=== PATIENT | female | born 1945 | race American Indian/Alaskan Native ===

== ENCOUNTER 2018-03-03 11:03 | Inpatient (IN) | payer MEDICARE ==
[2018-03-03] MEDS ORDERED: TYLENOL PO PRN (12:57)
[2018-03-03] MEDS ORDERED: VANCOMYCIN 1,250 MG in NACL 0.9% 500 ML 500 ML IV ONE (12:57)
[2018-03-03] MEDS ORDERED: NACL 0.9% 1000 ML IV ONE (12:57)
[2018-03-03] MEDS ORDERED: ZOSYN/NS 4.5GM/100ML 4.5 GM/100 ML VIAL IV SCH (13:00)
--- NOTE | 2018-03-03 13:00 | Emergency Department Report ---
ED General Adult HPI - General Chief complaint: Altered Mental Status Stated complaint: LOW BLOOD SUGAR Time Seen by Provider: 03/03/18 12:47 Source: family, EMS (ems notes not available at time of chart dictation), RN notes reviewed Mode of arrival: Stretcher Limitations: Altered Mental Status - History of Present Illness Initial comments: History obtained from patient's daughter. This is a 72-year-old female who is unknown to this provider. Patient has a past medical history of dementia, tube feeding, end-stage renal disease on dialysis, undifferentiated encephalopathy. The patient is sent to the ER for evaluation of generalized weakness. The patient is nonverbal and cannot describe exacerbating or relieving factors. Patient was found to be febrile,, and hypotensive in the emergency room. Code sepsis called overhead. Laboratory studies indicated a leukocytosis. Patient was found to have an infected sacral decubitus ulcer. She was initially hypotensive with a blood pressure in the 80s, and was managed according to the sepsis pathway, with appropriate broad spectrum antibiotics, and IV fluids. Initial blood pressure in the 80s, now currently 101 /40 Vancomycin and Zosyn were ordered. The case was discussed with the Hospital physician, Dr. Galeas, who accepted the patient to his service, nephrology, Dr. Xavier, who will follow in consultation and arrange dialysis, Gen. surgery, Dr. Pimentel, who will consult on the patient' s infected sacral wound. Extensive discussion had with daughter regarding poor prognosis, the daughter indicates the patient is currently a full code, although she is considering palliative care at this time. -: unknown Radiation: other (patient is nonverbal and cannot describe exacerbating or relieving factors) Severity scale (0 -10): 0 Quality: other (patient is nonverbal and cannot describe exacerbating or relieving factors) Consistency: other (patient is nonverbal and cannot describe exacerbating or relieving factors) Improves with: other (patient is nonverbal and cannot describe exacerbating or relieving factors) Worsens with: other (patient is nonverbal and cannot describe exacerbating or relieving factors) Associated Symptoms: malaise, weakness - Related Data Home Medications Medication Instructions Recorded Confirmed Last Taken Benztropine 1 mg PO HS 03/04/18 03/04/18 Unknown Calcium Acetate 667 mg PO TID 03/04/18 03/04/18 Unknown Carvedilol 6.25 mg PO BID 03/04/18 03/04/18 Unknown Clonidine HCl 0.1 mg PO BID 03/04/18 03/04/18 Unknown Docusate Sodium 100 mg PO DAILY 03/04/18 03/04/18 Unknown Esomeprazole Magnesium 20 mg PO DAILY 03/04/18 03/04/18 Unknown Haldol 2.5 mg PO DAILY 03/04/18 03/04/18 Unknown Haldol 5 mg PO HS 03/04/18 03/04/18 Unknown Levothyroxine 100 mcg PO DAILY 03/04/18 03/04/18 Unknown Mirtazapine [Remeron] 30 mg PO HS 03/04/18 03/04/18 Unknown Ranitidine HCl 150 mg PO HS 03/04/18 03/04/18 Unknown Simvastatin 20 mg PO HS 03/04/18 03/04/18 Unknown Spironolactone [Aldactone] 25 mg PO DAILY 03/04/18 03/04/18 Unknown amLODIPine 5 mg PO DAILY 03/04/18 03/04/18 Unknown Allergies Allergy/AdvReac Type Severity Reaction Status Date / Time No Known Allergies Allergy Verified 03/03/18 13:03 ED Review of Systems ROS: Stated complaint: LOW BLOOD SUGAR Other details as noted in HPI Comment: Unobtainable due to pts medical conditions ED Past Medical Hx - Past Medical History Previous Medical History?: Yes Hx Hypertension: Yes Hx Congestive Heart Failure: Yes (Unspecified diastolic heart failure) Hx Diabetes: Yes Hx GERD: Yes Hx Renal Disease: Yes Hx Psychiatric Treatment: Yes (Major Depression and schizophrenia) Additional medical history: encephalopathy, zoster without complications, ESRD, Anemia, hypothyroidism,dysphagia, Autonomic neuropathy muscle wasting, SOB - Surgical History Past Surgical History?: Yes Additional Surgical History: gastostomy, - Social History Smoking Status: Never Smoker Substance Use Type: Alcohol - Medications Home Medications: Home Medications Medication Instructions Recorded Confirmed Last Taken Type Benztropine 1 mg PO HS 03/04/18 03/04/18 Unknown History Calcium Acetate 667 mg PO TID 03/04/18 03/04/18 Unknown History Carvedilol 6.25 mg PO BID 03/04/18 03/04/18 Unknown History Clonidine HCl 0.1 mg PO BID 03/04/18 03/04/18 Unknown History Docusate Sodium 100 mg PO DAILY 03/04/18 03/04/18 Unknown History Esomeprazole Magnesium 20 mg PO DAILY 03/04/18 03/04/18 Unknown History Haldol 2.5 mg PO DAILY 03/04/18 03/04/18 Unknown History Haldol 5 mg PO HS 03/04/18 03/04/18 Unknown History Levothyroxine 100 mcg PO DAILY 03/04/18 03/04/18 Unknown History Mirtazapine [Remeron] 30 mg PO HS 03/04/18 03/04/18 Unknown History Ranitidine HCl 150 mg PO HS 03/04/18 03/04/18 Unknown History Simvastatin 20 mg PO HS 03/04/18 03/04/18 Unknown History Spironolactone [Aldactone] 25 mg PO DAILY 03/04/18 03/04/18 Unknown History amLODIPine 5 mg PO DAILY 03/04/18 03/04/18 Unknown History ED Physical Exam - General Limitations: Altered Mental Status General appearance: lethargic - Eye Eye exam: Present: PERRL - ENT ENT exam: Present: mucous membranes dry - Neck Neck exam: Present: normal inspection. Absent: tenderness, meningismus - Respiratory Respiratory exam: Present: decreased breath sounds - Cardiovascular Cardiovascular Exam: Present: regular rate, normal rhythm, normal heart sounds. Absent: bradycardia, tachycardia, irregular rhythm - GI/Abdominal GI/Abdominal exam: Present: soft, normal bowel sounds, other (feeding tube is noted, nontender, no redness, pus or streaking.). Absent: distended, tenderness , guarding, rebound, rigid - Rectal Rectal exam: Absent: normal inspection (there is unstageable sacral wound, approximately 4.5 cm, with obvious pus, smells foul, with necrotic tissue. No crepitus is noted.) - Extremities Exam Extremities exam: Present: other (upper extremity graft noted, with no redness, pus or streaking). Absent: tenderness, joint swelling, calf tenderness - Back Exam Back exam: Absent: paraspinal tenderness, vertebral tenderness - Neurological Exam Neurological exam: Present: altered, other (altered, demented, moving 4 extremities, does not follow commands. Protecting airway.) - Psychiatric Psychiatric exam: Present: other (nonverbal) - Skin Skin exam: Present: other (necrotic ulcer on the sacrum) ED Course Vital Signs 03/03/18 03/03/18 03/03/18 11:25 12:11 12:22 Temperature 99.3 F 100.9 F H Pulse Rate 80 79 Respiratory 16 Rate Blood Pressure 88/39 Blood Pressure 88/39 [Right] O2 Sat by Pulse 99 Oximetry 03/03/18 03/03/18 03/03/18 14:24 14:30 14:45 Temperature Pulse Rate Respiratory Rate Blood Pressure 83/41 87/38 88/33 Blood Pressure [Right] O2 Sat by Pulse Oximetry 03/03/18 03/03/18 03/03/18 15:00 15:11 15:15 Temperature Pulse Rate Respiratory Rate Blood Pressure 98/36 88/34 Blood Pressure [Right] O2 Sat by Pulse 97 Oximetry 03/03/18 03/03/18 03/03/18 15:30 15:45 16:00 Temperature Pulse Rate Respiratory Rate Blood Pressure 90/38 94/36 98/40 Blood Pressure [Right] O2 Sat by Pulse Oximetry 03/03/18 03/03/18 03/03/18 16:15 16:30 16:45 Temperature Pulse Rate Respiratory Rate Blood Pressure 99/39 95/38 92/41 Blood Pressure [Right] O2 Sat by Pulse Oximetry 03/03/18 03/03/18 03/03/18 17:45 18:00 18:15 Temperature Pulse Rate Respiratory Rate Blood Pressure 99/44 102/48 95/51 Blood Pressure [Right] O2 Sat by Pulse Oximetry ED Medical Decision Making - Lab Data Result diagrams: 03/05/18 10:50 03/05/18 10:50 Vital Signs 03/03/18 03/03/18 03/03/18 11:25 12:11 12:22 Temperature 99.3 F 100.9 F H Pulse Rate 80 79 Respiratory 16 Rate Blood Pressure 88/39 Blood Pressure 88/39 [Right] O2 Sat by Pulse 99 Oximetry Labs 03/03/18 03/03/18 03/03/18 11:25 11:25 11:25 WBC 14.8 H RBC 3.07 L Hgb 8.3 L Hct 26.0 L MCV 85 MCH 27 L MCHC 32 RDW 20.2 H Plt Count 384 Lymph % (Auto) 7.9 L [place] % (Auto) 5.7 Eos % (Auto) 1.0 Baso % (Auto) 0.4 Lymph # 1.2 [place] # 0.8 Eos # 0.2 Baso # 0.1 Seg Neutrophils % 85.0 H Seg Neutrophils # 12.6 H APTT 30.3 Sodium 127 L Potassium 4.9 Chloride 87.2 L Carbon Dioxide 26 Anion Gap 19 BUN 53 H Creatinine 4.7 H Estimated GFR 11 BUN/Creatinine Ratio 11 Glucose 130 H POC Glucose Calcium 8.9 Total Bilirubin 1.30 H AST 54 H ALT 35 Alkaline Phosphatase 487 H Total Protein 7.8 Albumin 2.3 L Albumin/Globulin Ratio 0.4 03/03/18 12:20 WBC RBC Hgb Hct MCV MCH MCHC RDW Plt Count Lymph % (Auto) [place] % (Auto) Eos % (Auto) Baso % (Auto) Lymph # [place] # Eos # Baso # Seg Neutrophils % Seg Neutrophils # APTT Sodium Potassium Chloride Carbon Dioxide Anion Gap BUN Creatinine Estimated GFR BUN/Creatinine Ratio Glucose POC Glucose 147 H Calcium Total Bilirubin AST ALT Alkaline Phosphatase Total Protein Albumin Albumin/Globulin Ratio - Radiology Data Radiology results: report reviewed Noncontrast CT scan of the brain is negative for acute disease. X-ray of the chest shows card and megaly and a trace left-sided pleural effusion. CT scan of the abdomen and pelvis shows atrophic kidneys, gas in the bilateral gluteal muscles with a possible myositis. - Medical Decision Making Differential diagnosis, including but not limited to: Sepsis, bacteremia, pneumonia, urinary tract infection, myositis cellulitis, infected sacral decubitus ulcer Assessment and plan: 72-year-old female meeting sepsis criteria, with presumed infected sacral decubitus ulcer with necrotic tissue and pus, fever, leukocytosis, and hemodynamic instability. Blood pressure improved at this time , completing IV fluid bolus, broad-spectrum antibiotics ordered, lactic acid, blood cultures ordered, poor prognosis, family currently contemplating palliative care. Critical care attestation.: If time is entered above; I have spent that time in minutes in the direct care of this critically ill patient, excluding procedure time. ED Disposition Clinical Impression: ESRD (end stage renal disease) Sepsis Qualifiers: Sepsis type: sepsis due to unspecified organism Qualified Code(s): A41.9 - Sepsis, unspecified organism Disposition: OP ADMIT IP TO THIS HOSP Is pt being admited?: Yes Does the pt Need Aspirin: No Condition: Fair
[2018-03-03 13:07] LABS: Basophils # (Auto) 0.1 K/mm3 (0.0-0.1); Basophils % (Auto) 0.4 % (0.0-1.8); Eosinophils # (Auto) 0.2 K/mm3 (0.0-0.4); Hemoglobin 8.3 gm/dl (10.1-14.3); Lymphocytes # (Auto) 1.2 K/mm3 (1.2-5.4); Lymphocytes % (Auto) 7.9 % (13.4-35.0); Mean Corpuscular HGB Conc 32 % (30-34); Mean Corpuscular Hemoglobin 27 pg (28-32); Mean Corpuscular Volume 85 fl (79-97); Monocytes # (Auto) 0.8 K/mm3 (0.0-0.8); Monocytes % (Auto) 5.7 % (0.0-7.3); Platelet Count 384 K/mm3 (140-440); Red Blood Count 3.07 M/mm3 (3.65-5.03)
[2018-03-03 13:12] LABS: Red Cell Distribution Width 20.2 % (13.2-15.2)
[2018-03-03 13:23] LABS: Albumin 2.3 g/dL (3.9-5); Calcium 8.9 mg/dL (8.4-10.2)
[2018-03-03] MEDS ORDERED: NACL 0.9% 500 ML IR ONE (14:47)
[2018-03-03] MEDS ORDERED: NACL 0.9% 1000 ML 1,000 ML ONE ×2 (15:33→17:50)
--- NOTE | 2018-03-03 15:35 | Consultation ---
History of Present Illness - Reason for Consult Consult date: 03/03/18 end stage renal disease - History of Present Illness patient with h/o ESRD on HD, every MWF, last tx was Saturday according to her daughter, she was sent to ER due to worsening of overall status. in the ED she was noted to have low BP and leukocytosis and was started on sepsis protocol. renal consult was requested for HD management Past History Past Medical History: ESRD, hypertension Medications and Allergies Allergies Allergy/AdvReac Type Severity Reaction Status Date / Time No Known Allergies Allergy Verified 03/03/18 13:03 Active Meds: Active Medications Acetaminophen (Tylenol) 650 mg PO Q6H PRN PRN Reason: Pain, Mild (1-3) Piperacillin Sod/Tazobactam Sod (Zosyn/Ns 4.5gm/100ml) 4.5 gm in 100 mls @ 200 mls/hr IV NOW ROMEL; Protocol Last Admin: 03/03/18 14:08 Dose: 200 mls/hr Review of Systems ROS unobtainable: due to mental status Exam - Vital Signs Vital signs: Vital Signs Temp Pulse Resp BP Pulse Ox 99.3 F 80 16 88/39 100 03/03/18 11:25 03/03/18 11:25 03/03/18 11:25 03/03/18 11:25 03/03/18 11:25 - General Appearance General appearance: well-developed, well-nourished EENT: ATNC, PERRL, mucous membranes dry Respiratory: Decreased Breath Sounds Heart: regular, S1S2 Gastrointestinal: Present: normoactive bowel sounds, distended Integumentary: no rash, warm and dry Neurologic: other (does not follow commands) Musculoskeletal: Present: other (no edema in BLE) Psychiatric: other (does not answer questions) Results - Lab Results 03/03/18 11:25 03/03/18 11:25 Most recent lab results Calcium 8.9 mg/dL (8.4-10.2) 03/03/18 11:25 Assessment and Plan Severe sepsis sacral decubitus ulcer - started on sepsis protocol, no requiring pressors yet - on vanco and zosyn - surgery consult for infected sacral decubitus ulcer ESRD on HD - current access is L AVF with + thrill and bruit - will hold HD today for low BP - will assess dialyssi needs daily - strict I&O - daily weights Anemia in CKD - Epogen with HD - no indication for transfusion please call with questions [phone]
[2018-03-03 15:50] LABS: INR 1.09 (0.87-1.13)
--- NOTE | 2018-03-03 16:08 | History and Physical Report ---
History of Present Illness Date of examination: 03/03/18 Date of admission: 03/03/2018 Chief complaint: Chief complaint: Fever and worsening decubitus ulcer for 1 week History of present illness: History of Present Illness: 72-year-old female group home resident with multiple medical problems including NG tube for feeding comes in for fever and severe sacral decubitus ulcer which has been there for a long time but is worsened recently in the last one week. The ulcer was initially is superficial but now it is very deep on the left sacral region. We'll favor low-grade fever present. No recent travel. No shortness of breath. No chest pain. Patient also has renal failure Past Medical History Previous Medical History?: Yes Hx Hypertension: Yes Hx Congestive Heart Failure: Yes (Unspecified diastolic heart failure) Hx Diabetes: Yes Hx GERD: Yes Hx Renal Disease: Yes Hx Psychiatric Treatment: Yes (Major Depression and schizophrenia) Additional medical history: encephalopathy, zoster without complications, ESRD, Anemia, hypothyroidism,dysphagia, Autonomic neuropathy muscle wasting, SOB - Surgical History Past Surgical History?: Yes Additional Surgical History: gastostomy, - Social History Smoking Status: Never Smoker Substance Use Type: Alcohol Family history: Hypertension Review of Systems ROS: Stated complaint: LOW BLOOD SUGAR Other details as noted in HPI Comment: Unobtainable due to pts medical conditions 14 point review of systems attempted. We will could not be done.--- Past History Past Medical History: ESRD, hypertension Medications and Allergies Allergies Allergy/AdvReac Type Severity Reaction Status Date / Time No Known Allergies Allergy Verified 03/03/18 13:03 Active Meds: Active Medications Acetaminophen (Tylenol) 650 mg PO Q6H PRN PRN Reason: Pain, Mild (1-3) Piperacillin Sod/Tazobactam Sod (Zosyn/Ns 4.5gm/100ml) 4.5 gm in 100 mls @ 200 mls/hr IV NOW ROMEL; Protocol Last Admin: 03/03/18 14:08 Dose: 200 mls/hr Exam - Constitutional Vitals: Temp Pulse Resp BP Pulse Ox 100.9 F H 79 16 88/39 100 03/03/18 12:11 03/03/18 12:22 03/03/18 11:25 03/03/18 11:25 03/03/18 11:25 General appearance: Present: no acute distress, mild distress, well-nourished - EENT Eyes: Present: PERRL ENT: hearing intact, clear oral mucosa - Neck Neck: Present: supple, normal ROM - Respiratory Respiratory effort: normal Respiratory: bilateral: CTA - Cardiovascular Heart rate: 80 Rhythm: regular Heart Sounds: Present: S1 & S2. Absent: rub, click - Extremities Extremities: pulses symmetrical, No edema Peripheral Pulses: within normal limits - Abdominal General gastrointestinal: Present: soft, non-tender, non-distended, normal bowel sounds, other (has a G-tube which is functioning) Female genitourinary: Present: normal - Rectal Rectal Exam: deferred - Integumentary Integumentary: Present: clear, warm, dry, decreased turgor - Musculoskeletal Musculoskeletal: generalized weakness, other (has stage IV decubitus ulcers with drainage and eschar on the left sacrum about 5 cm 6 cm 1 cm depth. Foul- smelling discharge.) - Psychiatric Psychiatric: appropriate mood/affect, intact judgment & insight - Neurologic Neurologic: CNII-XII intact, moves all extremities - Allied Health Allied health notes reviewed: nursing, case management Results - Labs CBC & Chem 7: 03/03/18 11:25 03/03/18 11:25 Labs: Laboratory Last Values WBC 14.8 K/mm3 (4.5-11.0) H 03/03/18 11:25 RBC 3.07 M/mm3 (3.65-5.03) L 03/03/18 11:25 Hgb 8.3 gm/dl (10.1-14.3) L 03/03/18 11:25 Hct 26.0 % (30.3-42.9) L 03/03/18 11:25 MCV 85 fl (79-97) 03/03/18 11:25 MCH 27 pg (28-32) L 03/03/18 11:25 MCHC 32 % (30-34) 03/03/18 11:25 RDW 20.2 % (13.2-15.2) H 03/03/18 11:25 Plt Count 384 K/mm3 (140-440) 03/03/18 11:25 Lymph % (Auto) 7.9 % (13.4-35.0) L 03/03/18 11:25 [place] % (Auto) 5.7 % (0.0-7.3) 03/03/18 11:25 Eos % (Auto) 1.0 % (0.0-4.3) 03/03/18 11:25 Baso % (Auto) 0.4 % (0.0-1.8) 03/03/18 11:25 Lymph # 1.2 K/mm3 (1.2-5.4) 03/03/18 11:25 [place] # 0.8 K/mm3 (0.0-0.8) 03/03/18 11:25 Eos # 0.2 K/mm3 (0.0-0.4) 03/03/18 11:25 Baso # 0.1 K/mm3 (0.0-0.1) 03/03/18 11:25 Seg Neutrophils % 85.0 % (40.0-70.0) H 03/03/18 11:25 Seg Neutrophils # 12.6 K/mm3 (1.8-7.7) H 03/03/18 11:25 PT 14.7 Sec. (12.2-14.9) 03/03/18 11:45 INR 1.09 (0.87-1.13) 03/03/18 11:45 APTT 30.3 Sec. (24.2-36.6) 03/03/18 11:25 Sodium 127 mmol/L (137-145) L 03/03/18 11:25 Potassium 4.9 mmol/L (3.6-5.0) 03/03/18 11:25 Chloride 87.2 mmol/L (98-107) L 03/03/18 11:25 Carbon Dioxide 26 mmol/L (22-30) 03/03/18 11:25 Anion Gap 19 mmol/L 03/03/18 11:25 BUN 53 mg/dL (7-17) H 03/03/18 11:25 Creatinine 4.7 mg/dL (0.7-1.2) H 03/03/18 11:25 Estimated GFR 11 ml/min 03/03/18 11:25 BUN/Creatinine Ratio 11 % 03/03/18 11:25 Glucose 130 mg/dL (65-100) H 03/03/18 11:25 POC Glucose 147 (70-105) H 03/03/18 12:20 Lactic Acid 1.60 mmol/L (0.7-2.0) 03/03/18 15:26 Calcium 8.9 mg/dL (8.4-10.2) 03/03/18 11:25 Total Bilirubin 1.30 mg/dL (0.1-1.2) H 03/03/18 11:25 AST 54 units/L (5-40) H 03/03/18 11:25 ALT 35 units/L (7-56) 03/03/18 11:25 Alkaline Phosphatase 487 units/L (35-129) H 03/03/18 11:25 Total Creatine Kinase 173 units/L (30-135) H 03/03/18 11:45 Total Protein 7.8 g/dL (6.3-8.2) 03/03/18 11:25 Albumin 2.3 g/dL (3.9-5) L 03/03/18 11:25 Albumin/Globulin Ratio 0.4 % 03/03/18 11:25 Assessment and Plan Advance Directives: Yes VTE prophylaxis?: Chemical Plan of care discussed with patient/family: Yes - Patient Problems (1) Sepsis Current Visit: Yes Status: Acute Qualifiers: Sepsis type: sepsis due to unspecified organism Qualified Code(s): A41.9 - Sepsis, unspecified organism Plan to address problem: Secondary to decubitus ulcer Patient initiated on IV Zosyn and IV vancomycin Surgery consult requested for debridement Wound CONSULT REQUESTED FOR DRESSING (2) Encephalopathy acute Current Visit: Yes Status: Acute Plan to address problem: Secondary to sepsis Continue IV fluids and IV antibiotics (3) Sacral decubitus ulcer, stage IV Current Visit: Yes Status: Chronic Plan to address problem: 6 cm 5 cm times a depth of 1.5 cm which is 15 cm Drainage present-foul smelling in nature. Needs extensive debridement. Undermining margins present IV vancomycin and IV Zosyn ID consult requested Surgery consult requested (4) Dehydration Current Visit: Yes Status: Acute Plan to address problem: IV fluids for now (5) Hypertension Current Visit: Yes Status: Chronic Qualifiers: Hypertension type: essential hypertension Qualified Code(s): I10 - Essential (primary) hypertension Plan to address problem: Catapres patch initiated (6) Malnutrition Current Visit: Yes Status: Chronic Qualifiers: Malnutrition type: protein-calorie malnutrition Protein-calorie malnutrition severity: severe Qualified Code(s): E43 - Unspecified severe protein-calorie malnutrition Plan to address problem: Patient needs dietary supplements, dietitian consult requested (7) Anemia Current Visit: Yes Status: Chronic Qualifiers: Anemia type: due to chronic kidney disease Chronic kidney disease stage: on chronic dialysis Qualified Code(s): N18.6 - End stage renal disease; D63.1 - Anemia in chronic kidney disease; Z99.2 - Dependence on renal dialysis Plan to address problem: Anemia of chronic disease Epogen as necessary-will defer to Nephrology (8) ESRD needing dialysis Current Visit: Yes Status: Chronic Plan to address problem: Nephrology consulted (9) Hyponatremia Current Visit: Yes Status: Acute Plan to address problem: Increased ultrafiltration (10) DVT prophylaxis Current Visit: Yes Status: Acute Plan to address problem: On heparin 5000 every 12
[2018-03-03] MEDS ORDERED: SODIUM CHLORIDE FLUSH SYRINGE 10 ML IV PRN (16:16)
[2018-03-03] MEDS ORDERED: ZOFRAN IV PRN (16:16)
[2018-03-03] MEDS ORDERED: PANCREAZE DR 10,500 UNIT FEEDTUBE PRN (16:37)
[2018-03-03] MEDS ORDERED: SIMPLE SYRUP FEEDTUBE PRN ×2 (16:37)
[2018-03-03] MEDS ORDERED: SODIUM BICARBONATE FEEDTUBE PRN (16:37)
[2018-03-03] MEDS: ZOSYN/NS 2.25 GM/50ML 2.25 GM/50 ML BAG IV SCH ×2 (17:30→23:44)
[2018-03-03] MEDS: NACL 0.9% 1000 ML 1,000 ML IV SCH (18:36)
[2018-03-03] MEDS: MORPHINE IV PRN (20:15)
[2018-03-03] MEDS: SODIUM CHLORIDE FLUSH SYRINGE 10 ML IV SCH (23:51)
[2018-03-03] MEDS: HEPARIN SUB-Q SCH (23:51)
[2018-03-04 01:04] LABS: Bacteria,Urine 2+ /HPF (Negative); Bilirubin,Urine NEG (Negative); Blood,Urine SM (Negative); Color,Urine Amber (Yellow); Mucus,Urine FEW /HPF; Urobilinogen,Urine < 2.0 mg/dL (<2.0)
[2018-03-04 06:06] LABS: Basophils # (Auto) 0.1 K/mm3 (0.0-0.1); Basophils % (Auto) 0.6 % (0.0-1.8); Eosinophils % (Auto) 0.2 % (0.0-4.3); Hematocrit 23.7 % (30.3-42.9); Hemoglobin 7.9 gm/dl (10.1-14.3); Lymphocytes % (Auto) 7.1 % (13.4-35.0); Mean Corpuscular HGB Conc 33 % (30-34); Mean Corpuscular Hemoglobin 28 pg (28-32); Mean Corpuscular Volume 83 fl (79-97); Monocytes # (Auto) 0.7 K/mm3 (0.0-0.8); Monocytes % (Auto) 5.1 % (0.0-7.3); Platelet Count 383 K/mm3 (140-440); Red Blood Count 2.86 M/mm3 (3.65-5.03); Red Cell Distribution Width 19.8 % (13.2-15.2)
[2018-03-04] MEDS: ZOSYN/NS 2.25 GM/50ML 2.25 GM/50 ML BAG IV SCH ×3 (06:20→21:47)
[2018-03-04 06:28] LABS: Calcium 8.2 mg/dL (8.4-10.2)
--- NOTE | 2018-03-04 07:41 | Consultation ---
History of Present Illness - Reason for Consult Consult date: 03/04/18 Sacral decubitus ulcer Requesting physician: PATRICK LARKIN - History of Present Illness 72-year-old female PMH ESRD on HD via LUE AV fistula, CHF, GERD, depression, hypothyroidism, herpes zoster, dementia, G tube for feedings, who was brought to [facility] ER on 03/03 for evaluation of weakness, fever, low BP and worsening sacral decubitus ulcer. History is obtained from records due to patient's history of dementia and from patient's daughter. Pt's daughter reported that pt developed the sacral decubitus ulcer about 4-5 weeks ago after admission to outside hospital from which she was transferred to SNF. She was noted to have fever and low BP at the SNF and was sent to the ER. In the ER temperature was 99.3, pulse 80, respiratory rate 16, saturation 100%, blood pressure 88/39. She was given IV fluids with improvement of the BP, no pressors were required. On exam she was noted to have a large sacral decubitus ulcer with foul smelling drainage. Labs showed white blood cell count of 14.8, H&H 8.3 and 26.0, platelets 354. BUN and creatinine 53 and 4.7. Lactic acid 1.6. Urinalysis showed negative nitrate, positive leukocyte esterase, RBC 22, WBC 117. Blood cultures were collected and are pending. Surgical service has been consulted for debridement of sacral ulcer. She was started on vancomycin and Zosyn. Infectious diseases is consulted to help with further antibiotic management. Microbiology: Blood cultures 03/03: pending Current Antimicrobials: Zosyn 03/03- Vancomcyin 03/03- Past History Past Medical History: diabetes, ESRD, hypertension, hypothyroidism Past Surgical History: Other (LUE AVF) Medications and Allergies Allergies Allergy/AdvReac Type Severity Reaction Status Date / Time No Known Allergies Allergy Verified 03/03/18 13:03 Active Meds: Active Medications Acetaminophen (Tylenol) 650 mg PO Q6H PRN PRN Reason: Pain, Mild (1-3) Acetaminophen (Tylenol) 650 mg PO Q4H PRN PRN Reason: Pain MILD(1-3)/Fever >100.5/[place] Lipase/Protease/Amylase (Pancreaze Dr 10,500 Unit) 1 each FEEDTUBE PRN PRN PRN Reason: For Clogged Feeding Tube Heparin Sodium (Porcine) (Heparin) 5,000 unit SUB-Q Q12HR [facility] Last Admin: 03/03/18 23:51 Dose: 5,000 unit Sodium Chloride (Nacl 0.9% 1000 Ml) 1,000 mls @ 100 mls/hr IV DIRECT ROMEL Last Admin: 03/03/18 18:36 Dose: 100 mls/hr Piperacillin Sod/Tazobactam Sod (Zosyn/Ns 2.25 Gm/50ml) 2.25 gm in 50 mls @ 100 mls/hr IV Q8HR ROMEL; Protocol Last Admin: 03/04/18 06:20 Dose: 100 mls/hr Morphine Sulfate (Morphine) 2 mg IV Q4H PRN PRN Reason: Pain, Moderate (4-6) Last Admin: 03/03/18 20:15 Dose: 2 mg Ondansetron HCl (Zofran) 4 mg IV Q8H PRN PRN Reason: Nausea And Vomiting Simple Syrup (Simple Syrup) 15 ml FEEDTUBE PRN PRN PRN Reason: Hypoglycemia Simple Syrup (Simple Syrup) 30 ml FEEDTUBE PRN PRN PRN Reason: Hypoglycemia Sodium Bicarbonate (Sodium Bicarbonate) 325 mg FEEDTUBE PRN PRN PRN Reason: For Clogged Feeding Tube Sodium Chloride (Sodium Chloride Flush Syringe 10 Ml) 10 ml IV BID [facility] Last Admin: 03/03/18 23:51 Dose: 10 ml Sodium Chloride (Sodium Chloride Flush Syringe 10 Ml) 10 ml IV PRN PRN PRN Reason: LINE FLUSH Review of Systems ROS unobtainable: due to mental status Physical Examination - Physical Exam Narrative exam: General appearance: Pt in NAD. Resting comfortable in bed. Eyes: anicteric sclerae, moist conjunctivae; PERRLA HENT: Atraumatic; oropharynx clear with moist mucous membranes and no mucosal ulcerations/no oral thrush; normal hard and soft palate. Normal external ears. Neck: Trachea midline; supple, no thyromegaly or lymphadenopathy Lungs: CTA, with normal respiratory effort and no intercostal retractions CV: S1,S2. RRR. Abdomen: Soft, non-tender; non-distended. G tube in place, site clean. Extremities: No peripheral edema or extremity lymphadenopathy. LUE AVF, thrill. Skin: Sacral decubitus ulcer with purulent drainage. Neuro: Limited exam. Lines: PIV - Constitutional Vitals: Vital Signs Temp Pulse Resp BP Pulse Ox 100.2 F H 84 22 87/40 95 03/04/18 03:22 03/04/18 03:24 03/04/18 03:22 03/04/18 03:22 03/04/18 03:24 Temperature -Last 24 Hours Temperature 100.2 F Temperature 98.8 F Temperature 98 F Temperature 100.9 F Temperature 99.3 F Temperature 99.3 F Results - Labs CBC & Chem 7: 03/04/18 05:51 03/04/18 05:51 Labs: Abnormal lab results 03/03/18 03/03/18 03/03/18 Range/Units 11:25 11:25 11:45 WBC 14.8 H (4.5-11.0) K/mm3 RBC 3.07 L (3.65-5.03) M/mm3 Hgb 8.3 L (10.1-14.3) gm/dl Hct 26.0 L (30.3-42.9) % MCH 27 L (28-32) pg RDW 20.2 H (13.2-15.2) % Lymph % (Auto) 7.9 L (13.4-35.0) % Lymph # (1.2-5.4) K/mm3 Seg Neutrophils % 85.0 H (40.0-70.0) % Seg Neutrophils # 12.6 H (1.8-7.7) K/mm3 Sodium 127 L (137-145) mmol/L Chloride 87.2 L (98-107) mmol/L Carbon Dioxide (22-30) mmol/L BUN 53 H (7-17) mg/dL Creatinine 4.7 H (0.7-1.2) mg/dL Glucose 130 H (65-100) mg/dL POC Glucose (70-105) Calcium (8.4-10.2) mg/dL Total Bilirubin 1.30 H (0.1-1.2) mg/dL AST 54 H (5-40) units/L Alkaline Phosphatase 487 H (35-129) units/L Total Creatine Kinase 173 H (30-135) units/L Albumin 2.3 L (3.9-5) g/dL Urine WBC (Auto) (0.0-6.0) /HPF 03/03/18 03/04/18 03/04/18 Range/Units 12:20 00:17 05:51 WBC 14.7 H (4.5-11.0) K/mm3 RBC 2.86 L (3.65-5.03) M/mm3 Hgb 7.9 L (10.1-14.3) gm/dl Hct 23.7 L (30.3-42.9) % MCH (28-32) pg RDW 19.8 H (13.2-15.2) % Lymph % (Auto) 7.1 L (13.4-35.0) % Lymph # 1.0 L (1.2-5.4) K/mm3 Seg Neutrophils % 87.0 H (40.0-70.0) % Seg Neutrophils # 12.8 H (1.8-7.7) K/mm3 Sodium (137-145) mmol/L Chloride (98-107) mmol/L Carbon Dioxide (22-30) mmol/L BUN (7-17) mg/dL Creatinine (0.7-1.2) mg/dL Glucose (65-100) mg/dL POC Glucose 147 H (70-105) Calcium (8.4-10.2) mg/dL Total Bilirubin (0.1-1.2) mg/dL AST (5-40) units/L Alkaline Phosphatase (35-129) units/L Total Creatine Kinase (30-135) units/L Albumin (3.9-5) g/dL Urine WBC (Auto) 117.0 H (0.0-6.0) /HPF 03/04/18 Range/Units 05:51 WBC (4.5-11.0) K/mm3 RBC (3.65-5.03) M/mm3 Hgb (10.1-14.3) gm/dl Hct (30.3-42.9) % MCH (28-32) pg RDW (13.2-15.2) % Lymph % (Auto) (13.4-35.0) % Lymph # (1.2-5.4) K/mm3 Seg Neutrophils % (40.0-70.0) % Seg Neutrophils # (1.8-7.7) K/mm3 Sodium 132 L (137-145) mmol/L Chloride (98-107) mmol/L Carbon Dioxide 21 L (22-30) mmol/L BUN 62 H (7-17) mg/dL Creatinine 5.2 H (0.7-1.2) mg/dL Glucose 146 H (65-100) mg/dL POC Glucose (70-105) Calcium 8.2 L (8.4-10.2) mg/dL Total Bilirubin (0.1-1.2) mg/dL AST (5-40) units/L Alkaline Phosphatase (35-129) units/L Total Creatine Kinase (30-135) units/L Albumin (3.9-5) g/dL Urine WBC (Auto) (0.0-6.0) /HPF Assessment and Plan Assessment: 1) Sepsis: Present on admission, manifested by fever, tachycardia, hypotension, leukocytosis. Most likely due to infected sacral decubitus ulcer. 2) Infected sacral decubitus ulcer. 3) Elevated liver function tests. 4) Encephalopathy. 5) ESRD on HD. Plan: -follow-up blood cultures. -Continue vancomycin and zosyn. -Check ESR, CRP. -Surgery consulted for sacral ulcer debridement. -Will f/u CT head, CT A/P, CXR. -Monitor CBC. -d/w pt's daughter bedside and RN. -Further recommendations as case progresses. Thank you for your consultation, will follow up with you. Radha Conner MD Infectious Diseases Specialist [facility] ([facility]) [phone]
[2018-03-04] MEDS ORDERED: PHARMACY CONSULT (FOR PT FALL) PO ONE (08:28)
[2018-03-04] MEDS: HEPARIN SUB-Q SCH ×2 (09:38→22:12)
[2018-03-04] MEDS: SODIUM CHLORIDE FLUSH SYRINGE 10 ML IV SCH ×2 (09:38→22:12)
--- NOTE | 2018-03-04 10:01 | Progress Note ---
Assessment and Plan Severe sepsis sacral decubitus ulcer - started on sepsis protocol - on vanco and zosyn, ID following - surgery consult for infected sacral decubitus ulcer ESRD on HD - current access is L AVF with + thrill and bruit - HD today for clearance and volume removal, BP remains low, may need to be transferred to ICU to start pressor in order to tolerate HD - will assess dialysis needs daily - strict I&O - daily weights Anemia in CKD - Epogen with HD - no indication for transfusion please call with questions [phone] Subjective Date of service: 03/04/18 Principal diagnosis: ESRD Interval history: remains to be drowsy, does not answer questions, daughter at bedside, all questions answered Objective - Vital Signs Vital signs: Vital Signs - 12hr 03/04/18 03/04/18 03/04/18 03:22 03:24 08:25 Temperature 100.2 F H Pulse Rate 77 84 78 Respiratory 22 Rate Blood Pressure 87/40 87/41 O2 Sat by Pulse 76 L 95 97 Oximetry 03/04/18 03/04/18 08:48 09:25 Temperature 102.4 F H 99.6 F Pulse Rate 82 Respiratory Rate Blood Pressure 94/38 O2 Sat by Pulse 97 Oximetry - General Appearance General appearance: well-developed, cachectic EENT: ATNC, PERRL, mucous membranes dry Neck: no JVD, no carotid bruit Respiratory: Present: Clear to Ascultation. Absent: Rales, Ronchi Cardiology: regular, S1S2 Gastrointestinal: normoactive bowel sounds, no tenderness, no distended, no obese Integumentary: no rash, warm and dry Neurologic: no focal deficit, no asterixis Musculoskeletal: other (no edema in BLE) Psychiatric: other (does not answer questions) - Lab 03/04/18 05:51 03/04/18 05:51 Most recent lab results Calcium 8.2 mg/dL (8.4-10.2) L 03/04/18 05:51
--- NOTE | 2018-03-04 10:38 | Progress Note ---
Assessment and Plan Full consult dictated Chief complaint: Fever and worsening decubitus ulcer for 1 week History of present illness: History of Present Illness: 72-year-old female [facility] resident with multiple medical problems including NG tube for feeding comes in for fever and severe sacral decubitus ulcer which has been there for a long time but is worsened recently in the last one week. The ulcer was initially is superficial but now it is very deep on the left sacral region. We'll favor low-grade fever present. No recent travel. No shortness of breath. No chest pain. Patient also has renal failure Past Medical History Previous Medical History?: Yes Hx Hypertension: Yes Hx Congestive Heart Failure: Yes (Unspecified diastolic heart failure) Hx Diabetes: Yes Hx GERD: Yes Hx Renal Disease: Yes Hx Psychiatric Treatment: Yes (Major Depression and schizophrenia) Additional medical history: encephalopathy, zoster without complications, ESRD, Anemia, hypothyroidism,dysphagia, Autonomic neuropathy muscle wasting, SOB - Surgical History Past Surgical History?: Yes Additional Surgical History: gastostomy, pt currently in dialysis sacral decubitus inspected. wet gangrene. possible source of sepsis will need surgical debridement high surgical risk will contact family and PCP will proceed with debridement in am if family agreeable and medically cleared. Need fluid and electrolye correction. pre-op transfusion? anesthesia pre op eval Selected Entries 03/04/18 03/04/18 08:48 09:25 Temperature 102.4 F H Pulse Rate 82 O2 Sat by Pulse 97 Oximetry Blood Pressure 94/38 Laboratory Tests 03/04/18 03/04/18 05:51 05:51 WBC 14.7 H Hgb 7.9 L Hct 23.7 L Sodium 132 L Potassium 5.0 Chloride 98.2 Carbon Dioxide 21 L Anion Gap 18 BUN 62 H Creatinine 5.2 H Objective Vital Signs - 12hr 03/04/18 03/04/18 03/04/18 03:22 03:24 08:25 Temperature 100.2 F H Pulse Rate 77 84 78 Respiratory 22 Rate Blood Pressure 87/40 87/41 O2 Sat by Pulse 76 L 95 97 Oximetry 03/04/18 03/04/18 08:48 09:25 Temperature 102.4 F H 99.6 F Pulse Rate 82 Respiratory Rate Blood Pressure 94/38 O2 Sat by Pulse 97 Oximetry - Labs 03/04/18 05:51 03/04/18 05:51 Diabetes panel 0503/03/18 03/04/18 Range/Units 11:25 16:24 05:51 Sodium 127 L 132 L (137-145) mmol/L Potassium 4.9 5.0 (3.6-5.0) mmol/L Chloride 87.2 L 98.2 (98-107) mmol/L Carbon Dioxide 26 21 L (22-30) mmol/L BUN 53 H 62 H (7-17) mg/dL Creatinine 4.7 H 5.2 H (0.7-1.2) mg/dL Glucose 130 H 146 H (65-100) mg/dL Hemoglobin A1c 5.8 (4-6) % Calcium 8.9 8.2 L (8.4-10.2) mg/dL AST 54 H (5-40) units/L ALT 35 (7-56) units/L Alkaline Phosphatase 487 H (35-129) units/L Total Protein 7.8 (6.3-8.2) g/dL Albumin 2.3 L (3.9-5) g/dL Calcium panel 03/03/18 03/04/18 Range/Units 11:25 05:51 Calcium 8.9 8.2 L (8.4-10.2) mg/dL Albumin 2.3 L (3.9-5) g/dL Pituitary panel 03/03/18 03/04/18 Range/Units 11:25 05:51 Sodium 127 L 132 L (137-145) mmol/L Potassium 4.9 5.0 (3.6-5.0) mmol/L Chloride 87.2 L 98.2 (98-107) mmol/L Carbon Dioxide 26 21 L (22-30) mmol/L BUN 53 H 62 H (7-17) mg/dL Creatinine 4.7 H 5.2 H (0.7-1.2) mg/dL Glucose 130 H 146 H (65-100) mg/dL Calcium 8.9 8.2 L (8.4-10.2) mg/dL Adrenal panel 03/03/18 03/04/18 Range/Units 11:25 05:51 Sodium 127 L 132 L (137-145) mmol/L Potassium 4.9 5.0 (3.6-5.0) mmol/L Chloride 87.2 L 98.2 (98-107) mmol/L Carbon Dioxide 26 21 L (22-30) mmol/L BUN 53 H 62 H (7-17) mg/dL Creatinine 4.7 H 5.2 H (0.7-1.2) mg/dL Glucose 130 H 146 H (65-100) mg/dL Calcium 8.9 8.2 L (8.4-10.2) mg/dL Total Bilirubin 1.30 H (0.1-1.2) mg/dL AST 54 H (5-40) units/L ALT 35 (7-56) units/L Alkaline Phosphatase 487 H (35-129) units/L Total Protein 7.8 (6.3-8.2) g/dL Albumin 2.3 L (3.9-5) g/dL
--- NOTE | 2018-03-04 11:12 | Progress Note ---
Assessment and Plan / Sepsis Secondary to infected decubitus ulcer and bacteremia Patient initiated on IV Zosyn and IV vancomycin Surgery consult requested for debridement Wound CONSULT REQUESTED FOR DRESSING plan for debridement tomorrow / Encephalopathy acute on chronic Secondary to sepsis Continue IV fluids and IV antibiotics /Bacteremia with gram-positive cocci - Continue vancomycin for now, follow final culture results / Sacral decubitus ulcer, stage IV 6 cm 5 cm times a depth of 1.5 cm which is 15 cm Drainage present-foul smelling in nature. Needs extensive debridement. Undermining margins present Continue IV vancomycin and IV Zosyn ID consult requested Surgery consult requested / Dehydration IV fluids for now /Hypertension Catapres patch initiated /Moderate to severe protein calorie Malnutrition Patient needs dietary supplements, dietitian consult requested /Anemia of chronic disease Anemia likely due to end-stage renal disease Epogen as necessary-will defer to Nephrology / ESRD needing dialysis Nephrology consulted for HD / Hyponatremia Will follow BMP likely to be corrected with HD /Dysphagia, continue PEG tube feeding /DVT prophylaxis On heparin 5000 every 12 Brief history: 72-year-old female long-term resident with multiple medical problems including PEG tube for feeding and ESRD on HD came in for fever and severe sacral decubitus ulcer which has been there for a long time but is worsened recently in the last one week. The ulcer was initially is superficial but now it is very deep on the left sacral region. Physical exam: General appearance: Present: no acute distress, mild distress, well-nourished - EENT Eyes: Present: PERRL ENT: hearing intact, clear oral mucosa - Neck Neck: Present: supple, normal ROM - Respiratory Respiratory effort: normal Respiratory: bilateral: CTA - Cardiovascular Heart rate: 80 Rhythm: regular Heart Sounds: Present: S1 & S2. Absent: rub, click - Extremities Extremities: pulses symmetrical, No edema Peripheral Pulses: within normal limits - Abdominal General gastrointestinal: Present: soft, non-tender, non-distended, normal bowel sounds, other (has a G-tube which is functioning) Female genitourinary: Present: normal - Rectal Rectal Exam: deferred - Integumentary Integumentary: Present: clear, warm, dry, decreased turgor - Musculoskeletal Musculoskeletal: generalized weakness, other (has stage IV decubitus ulcers with drainage and eschar on the left sacrum about 5 cm 6 cm 1 cm depth. Foul- smelling discharge.) - Psychiatric Psychiatric: appropriate mood/affect, intact judgment & insight - Neurologic Neurologic: CNII-XII intact, moves all extremities - Allied Health Allied health notes reviewed: nursing, case management Subjective Date of service: 03/04/18 Principal diagnosis: ESRD Interval history: Patient seen and examined. Medical records and medication list reviewed. No acute event overnight noted by the RN. Getting HD Discussed plan of care at bedside with RN and general surgeon. Objective - Constitutional Vitals: Vital Signs - 12hr 03/04/18 03/04/18 03/04/18 03:22 03:24 08:25 Temperature 100.2 F H Pulse Rate 77 84 78 Respiratory 22 Rate Blood Pressure 87/40 87/41 O2 Sat by Pulse 76 L 95 97 Oximetry 03/04/18 03/04/18 08:48 09:25 Temperature 102.4 F H 99.6 F Pulse Rate 82 Respiratory Rate Blood Pressure 94/38 O2 Sat by Pulse 97 Oximetry - Labs CBC & Chem 7: 03/04/18 05:51 03/04/18 05:51 Labs: Abnormal lab results 03/03/18 03/03/18 03/03/18 Range/Units 11:25 11:25 11:45 WBC 14.8 H (4.5-11.0) K/mm3 RBC 3.07 L (3.65-5.03) M/mm3 Hgb 8.3 L (10.1-14.3) gm/dl Hct 26.0 L (30.3-42.9) % MCH 27 L (28-32) pg RDW 20.2 H (13.2-15.2) % Lymph % (Auto) 7.9 L (13.4-35.0) % Lymph # (1.2-5.4) K/mm3 Seg Neutrophils % 85.0 H (40.0-70.0) % Seg Neutrophils # 12.6 H (1.8-7.7) K/mm3 Sodium 127 L (137-145) mmol/L Chloride 87.2 L (98-107) mmol/L Carbon Dioxide (22-30) mmol/L BUN 53 H (7-17) mg/dL Creatinine 4.7 H (0.7-1.2) mg/dL Glucose 130 H (65-100) mg/dL POC Glucose (70-105) Calcium (8.4-10.2) mg/dL Total Bilirubin 1.30 H (0.1-1.2) mg/dL AST 54 H (5-40) units/L Alkaline Phosphatase 487 H (35-129) units/L Total Creatine Kinase 173 H (30-135) units/L Albumin 2.3 L (3.9-5) g/dL Urine WBC (Auto) (0.0-6.0) /HPF 03/03/18 03/04/18 03/04/18 Range/Units 12:20 00:17 05:51 WBC 14.7 H (4.5-11.0) K/mm3 RBC 2.86 L (3.65-5.03) M/mm3 Hgb 7.9 L (10.1-14.3) gm/dl Hct 23.7 L (30.3-42.9) % MCH (28-32) pg RDW 19.8 H (13.2-15.2) % Lymph % (Auto) 7.1 L (13.4-35.0) % Lymph # 1.0 L (1.2-5.4) K/mm3 Seg Neutrophils % 87.0 H (40.0-70.0) % Seg Neutrophils # 12.8 H (1.8-7.7) K/mm3 Sodium (137-145) mmol/L Chloride (98-107) mmol/L Carbon Dioxide (22-30) mmol/L BUN (7-17) mg/dL Creatinine (0.7-1.2) mg/dL Glucose (65-100) mg/dL POC Glucose 147 H (70-105) Calcium (8.4-10.2) mg/dL Total Bilirubin (0.1-1.2) mg/dL AST (5-40) units/L Alkaline Phosphatase (35-129) units/L Total Creatine Kinase (30-135) units/L Albumin (3.9-5) g/dL Urine WBC (Auto) 117.0 H (0.0-6.0) /HPF 03/04/18 Range/Units 05:51 WBC (4.5-11.0) K/mm3 RBC (3.65-5.03) M/mm3 Hgb (10.1-14.3) gm/dl Hct (30.3-42.9) % MCH (28-32) pg RDW (13.2-15.2) % Lymph % (Auto) (13.4-35.0) % Lymph # (1.2-5.4) K/mm3 Seg Neutrophils % (40.0-70.0) % Seg Neutrophils # (1.8-7.7) K/mm3 Sodium 132 L (137-145) mmol/L Chloride (98-107) mmol/L Carbon Dioxide 21 L (22-30) mmol/L BUN 62 H (7-17) mg/dL Creatinine 5.2 H (0.7-1.2) mg/dL Glucose 146 H (65-100) mg/dL POC Glucose (70-105) Calcium 8.2 L (8.4-10.2) mg/dL Total Bilirubin (0.1-1.2) mg/dL AST (5-40) units/L Alkaline Phosphatase (35-129) units/L Total Creatine Kinase (30-135) units/L Albumin (3.9-5) g/dL Urine WBC (Auto) (0.0-6.0) /HPF
[2018-03-04] MEDS ORDERED: SIMPLE SYRUP FEEDTUBE PRN ×2 (11:16)
[2018-03-04] MEDS ORDERED: PANCREAZE DR 10,500 UNIT FEEDTUBE PRN (11:16)
[2018-03-04] MEDS ORDERED: SODIUM BICARBONATE FEEDTUBE PRN (11:16)
[2018-03-04] MEDS ORDERED: VANCOMYCIN/NS 1 GM/250 ML 1 GM/250 ML BAG IV SCH (13:00)
[2018-03-04] MEDS ORDERED: VANCOMYCIN PHARMACY TO DOSE IV SCH (13:00)
[2018-03-04] MEDS ORDERED: NACL 0.9 (PRIMING MACHINE ONLY DIALYSIS) MC ONE (13:12)
[2018-03-04] MEDS ORDERED: NACL 0.9% 100 ML IV PRN (14:00)
[2018-03-04] MEDS: PROCRIT IV PRN (14:53)
[2018-03-04] MEDS: NACL 0.9% 1000 ML 1,000 ML IV SCH (15:35)
[2018-03-04 17:01] LABS: Hepatitis A Antibody IgM Non-Reactive (NonReactive); Hepatitis B Core IgM Non-Reactive (NonReactive); Hepatitis B Surface Antigen Non-Reactive (Negative); Hepatitis C Virus Antibody Non-Reactive (NonReactive)
[2018-03-05] MEDS: ZOSYN/NS 2.25 GM/50ML 2.25 GM/50 ML BAG IV SCH ×3 (05:09→21:19)
[2018-03-05] MEDS: NACL 0.9% 1000 ML 1,000 ML IV SCH (05:09)
[2018-03-05] MEDS: MORPHINE IV PRN ×3 (05:38→21:14)
--- NOTE | 2018-03-05 07:08 | Anesthesia Consultation ---
Anesthesia Consult and Med Hx Date of service: 03/05/18 - Airway Anesthetic Teeth Evaluation: Poor, Edentulous ROM Head & Neck: Inadequate Mental/Hyoid Distance: Inadequate Mallampati Class: Class III Intubation Access Assessment: Probably Good - Pulmonary Exam CTA: Yes - Cardiac Exam Cardiac Exam: RRR - Pre-Operative Health Status ASA Pre-Surgery Classification: ASA4 Proposed Anesthetic Plan: General - Pre-Anesthesia Comment Pre-Anesthesia Comments: patient is poor historian. states her own name as answer to every question. Daughter was at bedside upon evaluation. Patient moved here from the [facility] and has suffered strong cognitive and physical decline causing decubitus ulcer and wet gangreen in sacral region. Presented to hospital with picture of sepsis and hypotension. Treated in antibiotic therapy. ESRD on HD (last dialysis on 03/04/18). Blood pressure improved. Anemia. Patient typed and screened. Hb stable. - Pulmonary Hx Smoking: No - Cardiovascular System Hx Hypertension: Yes (Recent h/o hypotension 2/2 sepsis) - Central Nervous System Hx Psychiatric Problems: Yes (dementia) - Endocrine Hx Renal Disease: Yes Hx End Stage Renal Disease: Yes Hx Hypothyroidism: Yes - Hematic Hx Anemia: Yes - Other Systems Hx Cancer: No
--- NOTE | 2018-03-05 07:09 | Anesthesia Day of Surgery ---
Anesthesia Day of Surgery - Day of Surgery Patient Examined: Yes Patient H&P Reviewed: Yes Patient is NPO: Yes
[2018-03-05] MEDS ORDERED: MARCAINE 0.5% 30 ML INFILTRATI ONE (07:19)
[2018-03-05] MEDS ORDERED: XYLOCAINE MPF 2% ONE (07:36)
[2018-03-05] MEDS ORDERED: SUBLIMAZE ONE (07:36)
[2018-03-05] MEDS ORDERED: DIPRIVAN 10 MG/ML IV ONE ×2 (07:37→08:53)
[2018-03-05] MEDS ORDERED: HYDROGEN PEROXIDE ONE ×2 (07:47→09:32)
--- NOTE | 2018-03-05 08:11 | Progress Note ---
Subjective Date of service: 03/05/18 Principal diagnosis: ESRD Interval history: ID BRIEF NOTE Pt out of floor for surgical debridement of sacral ulcer. Fever yesterday. Noted to have GPC clusters in 1/4 blood cultures bottles from 03/03. She is on vancomycin and zosyn. Will continue both for now. Will check today CBC, CMP and 2 sets of blood cx. Radha Conner ID attending C [phone]. Objective - Constitutional Vitals: Vital Signs Temp Pulse Resp BP Pulse Ox 98.5 F 76 18 123/58 96 03/04/18 14:00 03/04/18 22:00 03/04/18 22:00 03/04/18 14:00 03/04/18 14:00 Temperature -Last 24 Hours Temperature 98.5 F Temperature 98.8 F Temperature 101.7 F Temperature 99.6 F Temperature 102.4 F - Labs CBC & Chem 7: 03/04/18 05:51 03/04/18 05:51
[2018-03-05] MEDS ORDERED: ePHEDrine SULFATE ONE (08:16)
[2018-03-05] MEDS ORDERED: Vasostrict ONE (08:18)
[2018-03-05] MEDS ORDERED: HYDROGEN PEROXIDE IRRIGATION ONE ×2 (09:26)
[2018-03-05] MEDS ORDERED: NACL 0.9% IR ONE (09:26)
[2018-03-05] MEDS ORDERED: BLOXIVERZ ONE (09:43)
[2018-03-05] MEDS ORDERED: ZOFRAN ONE (09:43)
[2018-03-05] MEDS ORDERED: ROBINUL ONE (09:43)
[2018-03-05] MEDS ORDERED: ZEMURON IV ONE (10:00)
[2018-03-05] MEDS ORDERED: NEO SYNEPHRINE/NS Syringe(OR USE) IV ONE (10:00)
[2018-03-05] MEDS: SODIUM CHLORIDE FLUSH SYRINGE 10 ML IV SCH (10:01)
[2018-03-05] MEDS ORDERED: MORPHINE ONE (10:55)
[2018-03-05 11:12] LABS: Hematocrit 23.1 % (30.3-42.9); Hemoglobin 7.5 gm/dl (10.1-14.3); Mean Corpuscular HGB Conc 32 % (30-34); Mean Corpuscular Hemoglobin 27 pg (28-32); Mean Corpuscular Volume 85 fl (79-97); Platelet Count 450 K/mm3 (140-440); Red Blood Count 2.74 M/mm3 (3.65-5.03); Red Cell Distribution Width 19.8 % (13.2-15.2)
[2018-03-05] MEDS ORDERED: NACL 0.9% 1000 ML 1,000 ML ONE (11:14)
[2018-03-05 11:46] LABS: Albumin 1.7 g/dL (3.9-5); Calcium 8.4 mg/dL (8.4-10.2)
--- NOTE | 2018-03-05 12:03 | Consultation ---
REASON FOR CONSULTATION: Infected sacral decubitus ulcer causing possible sepsis. HISTORY OF PRESENT ILLNESS: The patient is a 72-year-old prison patient with a multitude of medical problems who was admitted at this time through the Emergency Room with recent high temperature and infected decubitus ulcer. I just saw the patient, who is currently undergoing dialysis and she appears to be somewhat confused or demented and no history could really be obtained from the patient. PHYSICAL EXAMINATION: VITAL SIGNS: At this time reveals her to be running a temperature of 102.4, blood pressure is low at 94/38, pulse of 82. ABDOMEN: Examination of the sacral decubitus does indeed reveal some wet gangrene with some crepitance. LABORATORY DATA: Lab work at present includes a CBC, which shows a white count of 14.7, H and H is low at 7.9 and 23.7. Electrolytes show lot of irregularities including low sodium of 132, potassium is 5, chloride is 98, BUN is 62, and creatinine is 5.2. ASSESSMENT AND PLAN: At this time is that of a 72-year-old prison patient with wet gangrene of the sacral decubitus possibly being the source of her fever and sepsis. RECOMMENDATIONS: At this time, I would proceed with surgical debridement of this infected decubitus in the morning pending agreement by family as well as medical clearance. The patient needs a lot of resuscitation as well as fluid and electrolyte correction. Possible preoperative transfusion? Also, we will need repeat labs in the morning after her dialysis today. We will also contact anesthesia directly for preanesthesia evaluation today in case anything else is required from their part. ADDENDUM: I have contacted Maia, which is the patient's daughter and she understands the high risk of surgery, but wishes to proceed with the debridement. We will thus call the OR and schedule patient for the morning. Also, we will discuss with you personally for any other preoperative arrangements that we need prior to surgery tomorrow. RAUDEL
[2018-03-05 12:11] LABS: Erythrocyte Sedimentation Rate > 140.0 mm/Hr (0-20)
[2018-03-05 12:31] LABS: Anisocytosis 1+; Band Neutrophils # (Manual) 0.1 K/mm3; Basophils % (Manual) 0 % (0.0-1.8); Hypochromasia Few; Platelet Estimate Cons; Target Cells Few; Total Cells Counted 100
--- NOTE | 2018-03-05 12:37 | Post Anesthesia Evaluation ---
- Post Anesthesia Evaluation Airway Patent: Yes Stable Respiratory Function: Yes Nausea/Vomiting: No Temp > 96.8F: Yes Pain Manageable: Yes Adequeate Hydration: Yes Anesthesia Complications: No
--- NOTE | 2018-03-05 12:58 | Cat Scan Report ---
CT HEAD WITHOUT CONTRAST: HISTORY: Altered mental status. TECHNIQUE: Sequential CT images without contrast. FINDINGS: Images obtained show bilateral prominence of the sulci and ventricles. There are no abnormal intra- or extra-axial blood or fluid collections. There are no focal masses or evidence of mass effect. The watts white matter differentiation appears within normal limits. Regions of periventricular decreased attenuation are consistent with microangiopathic ischemic disease. The posterior fossa structures including the fourth ventricle, cerebellum, and brainstem appear normal. IMPRESSION: Evidence of atrophy and microangiopathic ischemic disease. No acute intracranial process noted.
--- NOTE | 2018-03-05 12:58 | Cat Scan Report ---
CT ABDOMEN PELVIS WITHOUT CONTRAST: HISTORY: Altered mental status. COMPARISON: none. TECHNIQUE: Helical CT in 1.25mm intervals without IV contrast. Sagittal and coronal reconstructions. FINDINGS: Lung bases: Cardiomegaly and trace left pleural effusion. Liver: Normal. Biliary system: Cholecystectomy. Pancreas: Normal. Spleen: Normal. Kidneys/ureters/bladder: Both kidneys are mildly atrophic. No focal renal lesion or hydronephrosis. The ureters and bladder are unremarkable. Adrenal glands: Normal. Aorta: Normal. Intestines: Limited without oral contrast. A PEG tube appears in good position. There is moderate fecal retention but no evidence for obstruction or acute inflammation. Appendix: Normal. Pelvic viscera: Normal. Ascites: None. Adenopathy: None. Musculoskeletal: Intact. Degenerative changes in the spine are noted. There is gas in both gluteal muscles which is of uncertain etiology. This may be associated with a sacral ulcer or myositis. IMPRESSION: No acute inflammatory process is identified. Cardiomegaly and trace left pleural effusion. Chronic renal parenchymal disease. Fecal retention. Myositis of the gluteal muscles?
--- NOTE | 2018-03-05 15:04 | Progress Note ---
Assessment and Plan / Sepsis Secondary to infected decubitus ulcer and bacteremia Patient initiated on IV Zosyn and IV vancomycin Surgery consult requested for debridement Wound CONSULT REQUESTED FOR DRESSING Status post debridement of the sacral decubitus ulcer this morning / Encephalopathy acute on chronic Secondary to sepsis Continue IV fluids and IV antibiotics /Bacteremia with gram-positive cocci - Continue vancomycin for now, follow final culture results / Sacral decubitus ulcer, stage IV 6 cm 5 cm times a depth of 1.5 cm which is 15 cm Drainage present-foul smelling in nature. Needs extensive debridement. Undermining margins present Continue IV vancomycin and IV Zosyn ID consult requested Surgery consult requested, Status post debridement of the sacral decubitus ulcer this morning / Dehydration IV fluids for now /Hypertension Catapres patch initiated /Moderate to severe protein calorie Malnutrition Patient needs dietary supplements, dietitian consult requested /Anemia of chronic disease Anemia likely due to end-stage renal disease Epogen as necessary-will defer to Nephrology / ESRD needing dialysis Nephrology consulted for HD / Hyponatremia Will follow BMP likely to be corrected with HD /Dysphagia, continue PEG tube feeding /DVT prophylaxis On heparin 5000 every 12 Brief history: 72-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 The ulcer was initially is superficial but now it is very deep on the left sacral region. Physical exam: General appearance: Present: no acute distress, mild distress, well-nourished - EENT Eyes: Present: PERRL ENT: hearing intact, clear oral mucosa - Neck Neck: Present: supple, normal ROM - Respiratory Respiratory effort: normal Respiratory: bilateral: CTA - Cardiovascular Heart rate: 80 Rhythm: regular Heart Sounds: Present: S1 & S2. Absent: rub, click - Extremities Extremities: pulses symmetrical, No edema Peripheral Pulses: within normal limits - Abdominal General gastrointestinal: Present: soft, non-tender, non-distended, normal bowel sounds, other (has a G-tube which is functioning) - Integumentary Integumentary: Present: clear, warm, dry, decreased turgor - Musculoskeletal Musculoskeletal: generalized weakness, - Psychiatric Psychiatric: no appropriate mood/affect, no intact judgment & insight - Neurologic Neurologic: CNII-XII intact, moves all extremities, does not follow commands - Allied Health Allied health notes reviewed: nursing, case management Subjective Date of service: 03/05/18 Principal diagnosis: ESRD Interval history: Patient seen and examined. Medical records and medication list reviewed. No acute event overnight noted by the RN. Status post debridement of the sacral decubitus ulcer this morning Discussed plan of care at bedside with daughter. Objective - Constitutional Vitals: Vital Signs - 12hr 03/05/18 03/05/18 03/05/18 07:10 09:57 10:00 Temperature 98.5 F 97.1 F L Pulse Rate 73 80 80 Respiratory 18 16 15 Rate Blood Pressure 114/41 110/46 115/47 O2 Sat by Pulse 100 100 100 Oximetry 03/05/18 03/05/18 03/05/18 10:05 10:10 10:25 Temperature Pulse Rate 78 79 78 Respiratory 15 15 15 Rate Blood Pressure 114/46 103/45 116/45 O2 Sat by Pulse 100 100 99 Oximetry 03/05/18 03/05/18 03/05/18 10:40 10:55 11:01 Temperature 97.5 F L 97.8 F Pulse Rate 76 72 Respiratory 16 14 14 Rate Blood Pressure 113/75 104/56 O2 Sat by Pulse 98 100 Oximetry 03/05/18 03/05/18 03/05/18 11:10 11:30 11:31 Temperature 95.5 F L Pulse Rate 78 72 Respiratory 15 15 14 Rate Blood Pressure 108/75 101/39 O2 Sat by Pulse 100 97 Oximetry - Labs CBC & Chem 7: 03/06/18 07:16 03/06/18 07:16 Labs: Abnormal lab results 03/05/18 03/05/18 03/05/18 Range/Units 10:50 10:50 10:50 WBC 14.0 H (4.5-11.0) K/mm3 RBC 2.74 L (3.65-5.03) M/mm3 Hgb 7.5 L (10.1-14.3) gm/dl Hct 23.1 L (30.3-42.9) % MCH 27 L (28-32) pg RDW 19.8 H (13.2-15.2) % Plt Count 450 H (140-440) K/mm3 Seg Neuts % (Manual) 87.0 H (40.0-70.0) % Lymphocytes % (Manual) 6.0 L (13.4-35.0) % Seg Neutrophils # Man 12.2 H (1.8-7.7) K/mm3 Lymphocytes # (Manual) 0.8 L (1.2-5.4) K/mm3 Sodium 135 L (137-145) mmol/L Chloride 97.5 L (98-107) mmol/L BUN 37 H (7-17) mg/dL Creatinine 2.8 H (0.7-1.2) mg/dL Glucose 117 H (65-100) mg/dL POC Glucose (70-105) AST 41 H (5-40) units/L Alkaline Phosphatase 390 H (35-129) units/L C-Reactive Protein 22.60 H (0.00-1.30) mg/dL Albumin 1.7 L (3.9-5) g/dL 03/05/18 Range/Units 12:03 WBC (4.5-11.0) K/mm3 RBC (3.65-5.03) M/mm3 Hgb (10.1-14.3) gm/dl Hct (30.3-42.9) % MCH (28-32) pg RDW (13.2-15.2) % Plt Count (140-440) K/mm3 Seg Neuts % (Manual) (40.0-70.0) % Lymphocytes % (Manual) (13.4-35.0) % Seg Neutrophils # Man (1.8-7.7) K/mm3 Lymphocytes # (Manual) (1.2-5.4) K/mm3 Sodium (137-145) mmol/L Chloride (98-107) mmol/L BUN (7-17) mg/dL Creatinine (0.7-1.2) mg/dL Glucose (65-100) mg/dL POC Glucose 157 H (70-105) AST (5-40) units/L Alkaline Phosphatase (35-129) units/L C-Reactive Protein (0.00-1.30) mg/dL Albumin (3.9-5) g/dL
--- NOTE | 2018-03-05 15:42 | Progress Note ---
Assessment and Plan Severe sepsis: Sacral Decubitus Ulcer: -ID on board, on vancomycin and zosyn -Surgery on board, s/p surgical debridement of sacral wound on 03/05/18 ESRD on HD: -S/p HD yesterday for UF and clearance -No acute indication for HD today -HD tomorrow for gentle UF and clearance, goal UF 1-2 liters -HD prescription adjusted to decreased dialysate temp, higher calcium bath, sodium modeling, and longer HD treatment time to assist with hemodynamic stability during HD -Assess need for HD on daily basis -Renally dose meds -Strict intake and output -Renal plan d/w Dr Bledsoe -Continue supportive therapy Anemia in CKD: -Epogen with HD -No indication for transfusion Subjective Date of service: 03/05/18 Principal diagnosis: ESRD Interval history: Pt lethargic, doesn't folllow commands, family member at bedside stated she was tired Objective - Vital Signs Vital signs: Vital Signs - 12hr 03/05/18 03/05/18 03/05/18 07:10 09:57 10:00 Temperature 98.5 F 97.1 F L Pulse Rate 73 80 80 Respiratory 18 16 15 Rate Blood Pressure 114/41 110/46 115/47 O2 Sat by Pulse 100 100 100 Oximetry 03/05/18 03/05/18 03/05/18 10:05 10:10 10:25 Temperature Pulse Rate 78 79 78 Respiratory 15 15 15 Rate Blood Pressure 114/46 103/45 116/45 O2 Sat by Pulse 100 100 99 Oximetry 03/05/18 03/05/18 03/05/18 10:40 10:55 11:01 Temperature 97.5 F L 97.8 F Pulse Rate 76 72 Respiratory 16 14 14 Rate Blood Pressure 113/75 104/56 O2 Sat by Pulse 98 100 Oximetry 03/05/18 03/05/18 03/05/18 11:10 11:30 11:31 Temperature 95.5 F L Pulse Rate 78 72 Respiratory 15 15 14 Rate Blood Pressure 108/75 101/39 O2 Sat by Pulse 100 97 Oximetry 03/05/18 11:53 Temperature Pulse Rate 77 Respiratory Rate Blood Pressure 105/43 O2 Sat by Pulse 98 Oximetry - General Appearance General appearance: frail (no acute distress) EENT: ATNC Neck: no JVD Respiratory: Present: Other (Lung sounds decreased bilaterally, unlabored) Cardiology: regular, S1S2, other (ACCESS: Left AVF with positive thrill and bruit noted) Gastrointestinal: normoactive bowel sounds (PEG tube intact) Integumentary: warm and dry Neurologic: confused (doesn't follow commands) Musculoskeletal: other (no edema to both lower extremities) - Lab 03/05/18 10:50 03/05/18 10:50 Most recent lab results Calcium 8.4 mg/dL (8.4-10.2) 03/05/18 10:50
[2018-03-05] MEDS ORDERED: NACL 0.9% 100 ML IV PRN (15:47)
[2018-03-06] MEDS: MORPHINE IV PRN ×3 (05:51→19:50)
--- NOTE | 2018-03-06 07:32 | Progress Note ---
Assessment and Plan Assessment: 1) Sepsis: Present on admission, manifested by fever, tachycardia, hypotension, leukocytosis. Most likely due to infected sacral decubitus ulcer. Still with fever. WBC trending up. 2) Infected sacral decubitus ulcer. -s/p surgical debridement 03/05. As per operative report debridement down to bone and purulence noted. -ESR >140, CRP 22.60 3) Cogulase Neg Staph in 1/4 blood cultures bottles on 03/03. Contaminant. 4) Elevated liver function tests. 5) Encephalopathy. 6) ESRD on HD. Plan: -Will follow-up blood cultures and surgical cultures. -Continue vancomycin and zosyn (D4). -CBC, CMP. -Further recommendations as case progresses. Thank you for your consultation, will follow up with you. Radha Conner MD Infectious Diseases Specialist [facility] ([facility]) [phone] Subjective Date of service: 03/06/18 Principal diagnosis: ESRD Interval history: Had extensive debridement of sacral ulcer, purulence noted. Febrile yesterday. Currently getting HD. More awake. Microbiology: Blood cultures: 03/03: Coagulase Neg Staph (1/4 bottles) 03/05 pending Wound cultures: 03/05 pending Current Antimicrobials: Zosyn 03/03- Vancomcyin 03/03- Objective - Exam Narrative Exam: General appearance: Pt in NAD. Getting HD. Awake. More interactive. Eyes: anicteric sclerae, moist conjunctivae; PERRLA HENT: Atraumatic; oropharynx clear with moist mucous membranes and no mucosal ulcerations/no oral thrush; normal hard and soft palate. Normal external ears. Neck: Trachea midline; supple, no thyromegaly or lymphadenopathy Lungs: CTA, with normal respiratory effort and no intercostal retractions CV: S1,S2. RRR. Abdomen: Soft, non-tender; non-distended. G tube in place, site clean. Extremities: No peripheral edema or extremity lymphadenopathy. LUE AVF, thrill. Skin: Sacral decubitus ulcer with dressing. Neuro: Awake. Follows some commands. Lines: RUE midline - Constitutional Vitals: Vital Signs Temp Pulse Resp BP Pulse Ox 100.5 F H 77 21 105/42 100 03/06/18 03:00 03/06/18 03:00 03/06/18 03:00 03/06/18 03:00 03/06/18 03:00 Temperature -Last 24 Hours Temperature 100.5 F Temperature 103.3 F Temperature 95.5 F Temperature 97.8 F Temperature 97.5 F Temperature 97.1 F - Labs CBC & Chem 7: 03/06/18 07:16 03/06/18 07:16 Labs: Abnormal lab results 03/05/18 03/05/18 03/05/18 Range/Units 10:50 10:50 10:50 WBC 14.0 H (4.5-11.0) K/mm3 RBC 2.74 L (3.65-5.03) M/mm3 Hgb 7.5 L (10.1-14.3) gm/dl Hct 23.1 L (30.3-42.9) % MCH 27 L (28-32) pg RDW 19.8 H (13.2-15.2) % Plt Count 450 H (140-440) K/mm3 Seg Neuts % (Manual) 87.0 H (40.0-70.0) % Lymphocytes % (Manual) 6.0 L (13.4-35.0) % Seg Neutrophils # Man 12.2 H (1.8-7.7) K/mm3 Lymphocytes # (Manual) 0.8 L (1.2-5.4) K/mm3 Sodium 135 L (137-145) mmol/L Chloride 97.5 L (98-107) mmol/L BUN 37 H (7-17) mg/dL Creatinine 2.8 H (0.7-1.2) mg/dL Glucose 117 H (65-100) mg/dL POC Glucose (70-105) AST 41 H (5-40) units/L Alkaline Phosphatase 390 H (35-129) units/L C-Reactive Protein 22.60 H (0.00-1.30) mg/dL Albumin 1.7 L (3.9-5) g/dL 03/05/18 03/05/18 03/05/18 Range/Units 12:03 16:39 21:42 WBC (4.5-11.0) K/mm3 RBC (3.65-5.03) M/mm3 Hgb (10.1-14.3) gm/dl Hct (30.3-42.9) % MCH (28-32) pg RDW (13.2-15.2) % Plt Count (140-440) K/mm3 Seg Neuts % (Manual) (40.0-70.0) % Lymphocytes % (Manual) (13.4-35.0) % Seg Neutrophils # Man (1.8-7.7) K/mm3 Lymphocytes # (Manual) (1.2-5.4) K/mm3 Sodium (137-145) mmol/L Chloride (98-107) mmol/L BUN (7-17) mg/dL Creatinine (0.7-1.2) mg/dL Glucose (65-100) mg/dL POC Glucose 157 H 141 H 118 H (70-105) AST (5-40) units/L Alkaline Phosphatase (35-129) units/L C-Reactive Protein (0.00-1.30) mg/dL Albumin (3.9-5) g/dL
[2018-03-06 08:07] LABS: Calcium 8.1 mg/dL (8.4-10.2); Hematocrit 20.8 % (30.3-42.9); Hemoglobin 6.9 gm/dl (10.1-14.3); Red Blood Count 2.49 M/mm3 (3.65-5.03)
[2018-03-06 08:08] LABS: Mean Corpuscular HGB Conc 33 % (30-34); Mean Corpuscular Hemoglobin 28 pg (28-32); Mean Corpuscular Volume 84 fl (79-97); Platelet Count 475 K/mm3 (140-440); Red Cell Distribution Width 19.8 % (13.2-15.2)
[2018-03-06] MEDS: ZOSYN/NS 2.25 GM/50ML 2.25 GM/50 ML BAG IV SCH ×3 (08:41→23:18)
--- NOTE | 2018-03-06 09:50 | Progress Note ---
Assessment and Plan Severe sepsis: Sacral Decubitus Ulcer: -ID on board, on vancomycin and zosyn -Surgery on board, s/p surgical debridement of sacral wound on 03/05/18 ESRD on HD: -HD today for gentle UF and clearance, goal UF 1-2 liters -Assess need for HD on daily basis -Renally dose meds -Strict intake and output -Continue supportive therapy Anemia in CKD: -Epogen with HD -No indication for transfusion Subjective Date of service: 03/06/18 Principal diagnosis: ESRD Interval history: seen during HD, tolerating Objective - Vital Signs Vital signs: Vital Signs - 12hr 03/06/18 03/06/18 03/06/18 03:00 07:39 08:50 Temperature 100.5 F H 98.6 F 98.1 F Pulse Rate 77 70 70 Respiratory 21 22 16 Rate Blood Pressure 126/59 Blood Pressure 102/37 [Left] Blood Pressure 105/42 [Right] O2 Sat by Pulse 100 100 Oximetry 03/06/18 03/06/18 03/06/18 09:00 09:15 09:30 Temperature Pulse Rate 68 64 66 Respiratory Rate Blood Pressure 123/55 134/59 143/56 Blood Pressure [Left] Blood Pressure [Right] O2 Sat by Pulse Oximetry 03/06/18 09:45 Temperature Pulse Rate 69 Respiratory Rate Blood Pressure 146/56 Blood Pressure [Left] Blood Pressure [Right] O2 Sat by Pulse Oximetry - General Appearance General appearance: well-developed, appears stated age EENT: ATNC, PERRL, mucous membranes dry Neck: no JVD, no carotid bruit Respiratory: Present: Clear to Ascultation. Absent: Rales, Ronchi Cardiology: regular, S1S2 Gastrointestinal: normoactive bowel sounds, no tenderness, no distended, no obese Integumentary: no rash, warm and dry Neurologic: no focal deficit, no asterixis Musculoskeletal: other (no edema in BLE) Psychiatric: cooperative - Lab 03/06/18 07:16 03/06/18 07:16 Most recent lab results Calcium 8.1 mg/dL (8.4-10.2) L 03/06/18 07:16
[2018-03-06] MEDS ORDERED: NACL 0.9 (PRIMING MACHINE ONLY DIALYSIS) MC ONE (10:33)
[2018-03-06] MEDS ORDERED: NACL 0.9% 100 ML IV PRN (10:45)
--- NOTE | 2018-03-06 10:57 | Progress Note ---
Assessment and Plan Pt currently in newspaper subscription solicitor states pt more alert after surg. no drainage reported thru dressings High T overnight and low h/h noted awaiting cults consider prbc transfusion antibiotics as per ID Selected Entries 03/05/18 03/06/18 19:43 10:45 Temperature 103.3 F H Pulse Rate 71 Blood Pressure 145/49 Laboratory Tests 03/06/18 03/06/18 07:16 07:16 WBC 17.1 H Hgb 6.9 L Hct 20.8 L Sodium 133 L Potassium 4.4 Chloride 99.6 Carbon Dioxide 23 BUN 44 H Creatinine 3.3 H Objective Vital Signs - 12hr 03/06/18 03/06/18 03/06/18 03:00 07:39 08:50 Temperature 100.5 F H 98.6 F 98.1 F Pulse Rate 77 70 70 Respiratory 21 22 16 Rate Respiratory Rate [ Generalized] Blood Pressure 126/59 Blood Pressure 102/37 [Left] Blood Pressure 105/42 [Right] O2 Sat by Pulse 100 100 Oximetry O2 Sat by Pulse 99 Oximetry [ Anterior Bilateral Throughout] 03/06/18 03/06/18 03/06/18 09:00 09:15 09:30 Temperature Pulse Rate 68 64 66 Respiratory Rate Respiratory Rate [ Generalized] Blood Pressure 123/55 134/59 143/56 Blood Pressure [Left] Blood Pressure [Right] O2 Sat by Pulse Oximetry O2 Sat by Pulse Oximetry [ Anterior Bilateral Throughout] 03/06/18 03/06/18 03/06/18 09:45 10:00 10:15 Temperature Pulse Rate 69 71 69 Respiratory Rate Respiratory Rate [ Generalized] Blood Pressure 146/56 138/53 132/55 Blood Pressure [Left] Blood Pressure [Right] O2 Sat by Pulse Oximetry O2 Sat by Pulse Oximetry [ Anterior Bilateral Throughout] 03/06/18 03/06/18 10:30 10:45 Temperature Pulse Rate 80 71 Respiratory Rate Respiratory 20 Rate [ Generalized] Blood Pressure 129/51 145/49 Blood Pressure [Left] Blood Pressure [Right] O2 Sat by Pulse Oximetry O2 Sat by Pulse Oximetry [ Anterior Bilateral Throughout] - Labs 03/06/18 07:16 03/06/18 07:16 Diabetes panel 03/05/18 03/06/18 Range/Units 10:50 07:16 Sodium 135 L 133 L (137-145) mmol/L Potassium 4.1 4.4 (3.6-5.0) mmol/L Chloride 97.5 L 99.6 (98-107) mmol/L Carbon Dioxide 23 23 (22-30) mmol/L BUN 37 H 44 H (7-17) mg/dL Creatinine 2.8 H 3.3 H (0.7-1.2) mg/dL Glucose 117 H 126 H (65-100) mg/dL Calcium 8.4 8.1 L (8.4-10.2) mg/dL AST 41 H (5-40) units/L ALT 26 (7-56) units/L Alkaline Phosphatase 390 H (35-129) units/L Total Protein 6.8 (6.3-8.2) g/dL Albumin 1.7 L (3.9-5) g/dL Calcium panel 03/05/18 03/06/18 Range/Units 10:50 07:16 Calcium 8.4 8.1 L (8.4-10.2) mg/dL Albumin 1.7 L (3.9-5) g/dL Pituitary panel 03/05/18 03/06/18 Range/Units 10:50 07:16 Sodium 135 L 133 L (137-145) mmol/L Potassium 4.1 4.4 (3.6-5.0) mmol/L Chloride 97.5 L 99.6 (98-107) mmol/L Carbon Dioxide 23 23 (22-30) mmol/L BUN 37 H 44 H (7-17) mg/dL Creatinine 2.8 H 3.3 H (0.7-1.2) mg/dL Glucose 117 H 126 H (65-100) mg/dL Calcium 8.4 8.1 L (8.4-10.2) mg/dL Adrenal panel 03/05/18 03/06/18 Range/Units 10:50 07:16 Sodium 135 L 133 L (137-145) mmol/L Potassium 4.1 4.4 (3.6-5.0) mmol/L Chloride 97.5 L 99.6 (98-107) mmol/L Carbon Dioxide 23 23 (22-30) mmol/L BUN 37 H 44 H (7-17) mg/dL Creatinine 2.8 H 3.3 H (0.7-1.2) mg/dL Glucose 117 H 126 H (65-100) mg/dL Calcium 8.4 8.1 L (8.4-10.2) mg/dL Total Bilirubin 1.20 (0.1-1.2) mg/dL AST 41 H (5-40) units/L ALT 26 (7-56) units/L Alkaline Phosphatase 390 H (35-129) units/L Total Protein 6.8 (6.3-8.2) g/dL Albumin 1.7 L (3.9-5) g/dL
[2018-03-06] MEDS ORDERED: NACL 0.9% 500 ML 500 ML IV ONE (11:02)
[2018-03-06] MEDS: PROCRIT IV PRN (11:12)
[2018-03-06 12:27] LABS: Anisocytosis 1+; Basophils % (Manual) 0 % (0.0-1.8); Hypochromasia 1+; Monocytes % (Manual) 0 % (0.0-7.3); Platelet Estimate Cons; Total Cells Counted 100
--- NOTE | 2018-03-06 12:57 | Progress Note ---
Assessment and Plan / Sepsis Secondary to infected decubitus ulcer and bacteremia Patient initiated on IV Zosyn and IV vancomycin / Encephalopathy acute on chronic Secondary to sepsis Continue IV fluids and IV antibiotics /Bacteremia with gram-positive cocci - Continue vancomycin for now, follow final culture results / Sacral decubitus ulcer, stage IV 6 cm 5 cm times a depth of 1.5 cm which is 15 cm on admission Drainage was present-foul smelling in nature. Continue IV vancomycin and IV Zosyn Surgery consult requested, Status post debridement of the sacral decubitus ulcer on 02/3018 ID following / Dehydration, improved with IV fluids /Hypertension Catapres patch initiated /Moderate to severe protein calorie Malnutrition Patient needs dietary supplements, dietitian consult requested /Anemia of chronic disease Anemia likely due to end-stage renal disease Epogen as necessary-will defer to Nephrology H and H dropped today to 6.9, will transfuse / ESRD needing dialysis Nephrology consulted for HD / Hyponatremia Will follow BMP likely to be corrected with HD /Dysphagia, continue PEG tube feeding /DVT prophylaxis On heparin 5000 every 12 Brief history: 72-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 The ulcer was initially is superficial but now it is very deep on the left sacral region. Physical exam: General appearance: Present: no acute distress, mild distress, well-nourished - EENT Eyes: Present: PERRL ENT: hearing intact, clear oral mucosa - Neck Neck: Present: supple, normal ROM - Respiratory Respiratory effort: normal Respiratory: bilateral: CTA - Cardiovascular Heart rate: 80 Rhythm: regular Heart Sounds: Present: S1 & S2. Absent: rub, click - Extremities Extremities: pulses symmetrical, No edema Peripheral Pulses: within normal limits - Abdominal General gastrointestinal: Present: soft, non-tender, non-distended, normal bowel sounds, other (has a G-tube which is functioning) - Integumentary Integumentary: Present: clear, warm, dry, decreased turgor - Musculoskeletal Musculoskeletal: generalized weakness, - Psychiatric Psychiatric: no appropriate mood/affect, no intact judgment & insight - Neurologic Neurologic: CNII-XII intact, moves all extremities, does not follow commands - Allied Health Allied health notes reviewed: nursing, case management Subjective Date of service: 03/06/18 Principal diagnosis: ESRD Interval history: Patient seen and examined. Medical records and medication list reviewed. No acute event overnight noted by the RN. s/p HD today, H/H declined. Objective - Constitutional Vitals: Vital Signs - 12hr 03/06/18 03/06/18 03/06/18 03:00 07:39 08:50 Temperature 100.5 F H 98.6 F 98.1 F Pulse Rate 77 70 70 Respiratory 21 22 16 Rate Respiratory Rate [ Generalized] Blood Pressure 126/59 Blood Pressure 102/37 [Left] Blood Pressure 105/42 [Right] O2 Sat by Pulse 100 100 Oximetry O2 Sat by Pulse 99 Oximetry [ Anterior Bilateral Throughout] 03/06/18 03/06/18 03/06/18 09:00 09:15 09:30 Temperature Pulse Rate 68 64 66 Respiratory Rate Respiratory Rate [ Generalized] Blood Pressure 123/55 134/59 143/56 Blood Pressure [Left] Blood Pressure [Right] O2 Sat by Pulse Oximetry O2 Sat by Pulse Oximetry [ Anterior Bilateral Throughout] 03/06/18 03/06/18 03/06/18 09:45 10:00 10:15 Temperature Pulse Rate 69 71 69 Respiratory Rate Respiratory Rate [ Generalized] Blood Pressure 146/56 138/53 132/55 Blood Pressure [Left] Blood Pressure [Right] O2 Sat by Pulse Oximetry O2 Sat by Pulse Oximetry [ Anterior Bilateral Throughout] 03/06/18 03/06/18 03/06/18 10:30 10:45 11:00 Temperature Pulse Rate 80 71 74 Respiratory Rate Respiratory 20 Rate [ Generalized] Blood Pressure 129/51 145/49 145/60 Blood Pressure [Left] Blood Pressure [Right] O2 Sat by Pulse Oximetry O2 Sat by Pulse Oximetry [ Anterior Bilateral Throughout] 03/06/18 03/06/18 11:15 11:30 Temperature Pulse Rate 71 73 Respiratory Rate Respiratory Rate [ Generalized] Blood Pressure 137/48 139/51 Blood Pressure [Left] Blood Pressure [Right] O2 Sat by Pulse Oximetry O2 Sat by Pulse Oximetry [ Anterior Bilateral Throughout] - Labs CBC & Chem 7: 03/06/18 07:16 03/06/18 07:16 Labs: Abnormal lab results 03/04/18 03/05/18 03/05/18 Range/Units 15:37 16:39 21:42 WBC (4.5-11.0) K/mm3 RBC (3.65-5.03) M/mm3 Hgb (10.1-14.3) gm/dl Hct (30.3-42.9) % RDW (13.2-15.2) % Plt Count (140-440) K/mm3 Seg Neuts % (Manual) (40.0-70.0) % Lymphocytes % (Manual) (13.4-35.0) % Seg Neutrophils # Man (1.8-7.7) K/mm3 Lymphocytes # (Manual) (1.2-5.4) K/mm3 Sodium (137-145) mmol/L BUN (7-17) mg/dL Creatinine (0.7-1.2) mg/dL Glucose (65-100) mg/dL POC Glucose 141 H 118 H (70-105) Calcium (8.4-10.2) mg/dL Crossmatch See Detail 03/06/18 03/06/18 Range/Units 07:16 07:16 WBC 17.1 H (4.5-11.0) K/mm3 RBC 2.49 L (3.65-5.03) M/mm3 Hgb 6.9 L (10.1-14.3) gm/dl Hct 20.8 L (30.3-42.9) % RDW 19.8 H (13.2-15.2) % Plt Count 475 H (140-440) K/mm3 Seg Neuts % (Manual) 97.0 H (40.0-70.0) % Lymphocytes % (Manual) 2.0 L (13.4-35.0) % Seg Neutrophils # Man 16.6 H (1.8-7.7) K/mm3 Lymphocytes # (Manual) 0.3 L (1.2-5.4) K/mm3 Sodium 133 L (137-145) mmol/L BUN 44 H (7-17) mg/dL Creatinine 3.3 H (0.7-1.2) mg/dL Glucose 126 H (65-100) mg/dL POC Glucose (70-105) Calcium 8.1 L (8.4-10.2) mg/dL Crossmatch
--- NOTE | 2018-03-06 13:02 | XRay Report ---
AP CHEST: HISTORY: Sepsis No comparison. There is mild cardiomegaly. Normal pulmonary vascularity. Trace left pleural effusion is identified. The lungs are generally clear otherwise. No pneumothorax. The thoracic cage is grossly intact. IMPRESSION: Mild cardiomegaly. Trace left pleural effusion.
[2018-03-06] MEDS: SODIUM CHLORIDE FLUSH SYRINGE 10 ML IV SCH (13:27)
[2018-03-06] MEDS ORDERED: NACL 0.9% 500 ML 500 ML IV NR (14:30)
[2018-03-06] MEDS: TYLENOL PO PRN ×2 (15:54→23:21)
[2018-03-07 06:19] LABS: Bilirubin,Direct 0.8 mg/dL (0-0.2)
[2018-03-07] MEDS: ZOSYN/NS 2.25 GM/50ML 2.25 GM/50 ML BAG IV SCH ×4 (07:11→22:10)
[2018-03-07] MEDS: NACL 0.9% 1000 ML 1,000 ML IV SCH ×2 (07:12→19:05)
--- NOTE | 2018-03-07 08:02 | Progress Note ---
Assessment and Plan Assessment: 1) Sepsis: Present on admission, manifested by fever, tachycardia, hypotension, leukocytosis. Most likely due to infected sacral decubitus ulcer. Still with fever and elevated WBC. 2) Infected sacral decubitus ulcer. -s/p surgical debridement 03/05. As per operative report debridement down to bone and purulence noted. WCX with Enterococcus and GNRs. -ESR >140, CRP 22.60 3) Cogulase Neg Staph in 1/4 blood cultures bottles on 03/03. Contaminant. Repeat BCx 03/05 NGTD. 4) Elevated liver function tests. Improved. 5) Encephalopathy. Improved. 6) ESRD on HD. Plan: -Will follow-up blood cultures -Will f/u final surgical cultures. -Continue vancomycin and zosyn (D5). -Monitor CBC. -Further recommendations as case progresses. Thank you for your consultation, will follow up with you. Radha Conner MD Infectious Diseases Specialist [facility] ([facility]) [phone] Subjective Date of service: 03/07/18 Principal diagnosis: ESRD Interval history: Low grade fever yesterday. No fever documented yet today. Microbiology: Blood cultures: 03/03: Coagulase Neg Staph (1/4 bottles) 03/05 NGTD Wound cultures: 03/05 surgical biopsy cx: GNR, GNR, GNR, Enterococcus. Current Antimicrobials: Zosyn 03/03- Vancomcyin 03/03- Objective - Exam Narrative Exam: General appearance: Pt in NAD. Awake. Alert. Following commands. Eyes: anicteric sclerae, moist conjunctivae; PERRLA HENT: Atraumatic; oropharynx clear with moist mucous membranes and no mucosal ulcerations/no oral thrush; normal hard and soft palate. Normal external ears. Neck: Trachea midline; supple, no thyromegaly or lymphadenopathy Lungs: CTA, with normal respiratory effort and no intercostal retractions CV: S1,S2. RRR. Abdomen: Soft, non-tender; non-distended. G tube in place, site clean. Extremities: No peripheral edema or extremity lymphadenopathy. LUE AVF, thrill. Skin: Sacral decubitus ulcer with dressing. Neuro: Awake. Alert. Follows commands. Moves extremities. Lines: RUE midline - Constitutional Vitals: Vital Signs Temp Pulse Resp BP Pulse Ox 99.8 F H 67 20 127/43 100 03/07/18 02:00 03/07/18 02:00 03/07/18 02:00 03/07/18 02:00 03/07/18 02:00 Temperature -Last 24 Hours Temperature 99.8 F Temperature 99.5 F Temperature 100.1 F Temperature 99.1 F Temperature 100.9 F Temperature 99.2 F Temperature 98.2 F Temperature 99.2 F Temperature 100.5 F Temperature 98.4 F Temperature 98.8 F Temperature 98.1 F - Labs CBC & Chem 7: 03/06/18 07:16 03/06/18 07:16 Labs: Abnormal lab results 03/04/18 03/06/18 03/06/18 Range/Units 15:37 07:16 07:16 WBC 17.1 H (4.5-11.0) K/mm3 RBC 2.49 L (3.65-5.03) M/mm3 Hgb 6.9 L (10.1-14.3) gm/dl Hct 20.8 L (30.3-42.9) % RDW 19.8 H (13.2-15.2) % Plt Count 475 H (140-440) K/mm3 Seg Neuts % (Manual) 97.0 H (40.0-70.0) % Lymphocytes % (Manual) 2.0 L (13.4-35.0) % Seg Neutrophils # Man 16.6 H (1.8-7.7) K/mm3 Lymphocytes # (Manual) 0.3 L (1.2-5.4) K/mm3 Sodium 133 L (137-145) mmol/L BUN 44 H (7-17) mg/dL Creatinine 3.3 H (0.7-1.2) mg/dL Glucose 126 H (65-100) mg/dL POC Glucose (70-105) Calcium 8.1 L (8.4-10.2) mg/dL Direct Bilirubin (0-0.2) mg/dL Alkaline Phosphatase (35-129) units/L Total Protein (6.3-8.2) g/dL Albumin (3.9-5) g/dL Crossmatch See Detail 03/06/18 03/07/18 Range/Units 22:34 05:38 WBC (4.5-11.0) K/mm3 RBC (3.65-5.03) M/mm3 Hgb (10.1-14.3) gm/dl Hct (30.3-42.9) % RDW (13.2-15.2) % Plt Count (140-440) K/mm3 Seg Neuts % (Manual) (40.0-70.0) % Lymphocytes % (Manual) (13.4-35.0) % Seg Neutrophils # Man (1.8-7.7) K/mm3 Lymphocytes # (Manual) (1.2-5.4) K/mm3 Sodium (137-145) mmol/L BUN (7-17) mg/dL Creatinine (0.7-1.2) mg/dL Glucose (65-100) mg/dL POC Glucose 220 H (70-105) Calcium (8.4-10.2) mg/dL Direct Bilirubin 0.8 H (0-0.2) mg/dL Alkaline Phosphatase 490 H (35-129) units/L Total Protein 5.9 L (6.3-8.2) g/dL Albumin 2.0 L (3.9-5) g/dL Crossmatch
--- NOTE | 2018-03-07 09:17 | Consultation ---
REASON FOR CONSULTATION: Infected sacral decubitus ulcer causing possible sepsis. HISTORY OF PRESENT ILLNESS: The patient is a 72-year-old fpc patient with a multitude of medical problems who was admitted at this time through the Emergency Room with recent high temperature and infected decubitus ulcer. I just saw the patient, who is currently undergoing dialysis and she appears to be somewhat confused or demented and no history could really be obtained from the patient. PHYSICAL EXAMINATION: VITAL SIGNS: At this time reveals her to be running a temperature of 102.4, blood pressure is low at 94/38, pulse of 82. ABDOMEN: Examination of the sacral decubitus does indeed reveal some wet gangrene with some crepitance. LABORATORY DATA: Lab work at present includes a CBC, which shows a white count of 14.7, H and H is low at 7.9 and 23.7. Electrolytes show lot of irregularities including low sodium of 132, potassium is 5, chloride is 98, BUN is 62, and creatinine is 5.2. ASSESSMENT AND PLAN: At this time is that of a 72-year-old fpc patient with wet gangrene of the sacral decubitus possibly being the source of her fever and sepsis. RECOMMENDATIONS: At this time, I would proceed with surgical debridement of this infected decubitus in the morning pending agreement by family as well as medical clearance. The patient needs a lot of resuscitation as well as fluid and electrolyte correction. Possible preoperative transfusion? Also, we will need repeat labs in the morning after her dialysis today. We will also contact anesthesia directly for preanesthesia evaluation today in case anything else is required from their part. ADDENDUM: I have contacted Maia, which is the patient's daughter and she understands the high risk of surgery, but wishes to proceed with the debridement. We will thus call the OR and schedule patient for the morning. Also, we will discuss with you personally for any other preoperative arrangements that we need prior to surgery tomorrow. JOB# [id number] ZULY/ROHIT
--- NOTE | 2018-03-07 09:49 | Progress Note ---
Assessment and Plan Severe sepsis: Sacral Decubitus Ulcer: -ID on board, on zosyn -Surgery on board, s/p surgical debridement of sacral wound on 03/05/18 ESRD on HD: -no indication for HD today -Assess need for HD on daily basis -Renally dose meds -Strict intake and output -Continue supportive therapy Anemia in CKD: -Epogen with HD -No indication for transfusion Subjective Principal diagnosis: ESRD Objective - Vital Signs Vital signs: Vital Signs - 12hr 03/07/18 03/07/18 02:00 07:53 Temperature 99.8 F H 99.6 F Pulse Rate 67 80 Respiratory 20 20 Rate Blood Pressure 144/54 Blood Pressure 127/43 [Left] O2 Sat by Pulse 100 97 Oximetry - Lab 03/06/18 07:16 03/06/18 07:16 Most recent lab results Calcium 8.1 mg/dL (8.4-10.2) L 03/06/18 07:16
--- NOTE | 2018-03-07 09:55 | Operative Report ---
PREOPERATIVE DIAGNOSIS: Infected decubitus ulcer with wet gangrene and sepsis. POSTOPERATIVE DIAGNOSIS: Wide excision of sacral ulcer. SURGEON: Last Pimentel MD ANESTHESIA: General. ESTIMATED BLOOD LOSS: Minimal. DRAINS: No drains. COMPLICATIONS: No complications. DESCRIPTION OF PROCEDURE: The patient taken to the operating room and placed in prone position, prepped and draped in usual sterile fashion. There was extensive necrotic and wet gangrene of large sacral ulcer. A wide excision was performed. Marking pencil was used to outline all the areas of gross crepitance and infection. Electrocautery was used to dissect through the skin, subcutaneous and down to the sacral bone itself. All infected tissue was extensively removed. Large portions of the tissues were sent fresh to pathology for aerobic, anaerobic cultures. Purulence was also noted during the dissection and aerobic and anaerobic cultures were taken of this. After completely excising the sacral ulcer, the entire area was irrigated with a 50% Betadine peroxide solution. The saline was then used for subsequent irrigation. The area was checked for hemostasis, which was controlled with electrocautery. Once again, the wound was irrigated copiously and dried. Checked for hemostasis and noted to be dry. The cavity was packed with a Kerlix roll soaked in a 50% Betadine peroxide solution. Fluffs and pressure dressings applied. The patient tolerated the procedure well and left the OR in stable condition. JOB# [id number] ZULY/ROHIT
[2018-03-07] MEDS: SODIUM CHLORIDE FLUSH SYRINGE 10 ML IV SCH ×2 (10:06→22:05)
[2018-03-07] MEDS: TYLENOL PO PRN (10:06)
[2018-03-07 10:35] LABS: Basophils # (Auto) 0.1 K/mm3 (0.0-0.1); Basophils % (Auto) 0.4 % (0.0-1.8); Eosinophils # (Auto) 0.2 K/mm3 (0.0-0.4); Eosinophils % (Auto) 1.1 % (0.0-4.3); Hematocrit 28.3 % (30.3-42.9); Hemoglobin 9.3 gm/dl (10.1-14.3); Lymphocytes # (Auto) 1.2 K/mm3 (1.2-5.4); Lymphocytes % (Auto) 6.5 % (13.4-35.0); Mean Corpuscular HGB Conc 33 % (30-34); Mean Corpuscular Hemoglobin 27 pg (28-32); Mean Corpuscular Volume 83 fl (79-97); Monocytes # (Auto) 0.6 K/mm3 (0.0-0.8); Monocytes % (Auto) 3.1 % (0.0-7.3); Platelet Count 530 K/mm3 (140-440); Red Blood Count 3.41 M/mm3 (3.65-5.03)
--- NOTE | 2018-03-07 12:30 | Progress Note ---
Assessment and Plan POD # 1 Pt feeling well. much more alert. Wd - still some purulence noted as per ET nurse Begin local wd care with Dakin's errol BID throughout the weekend will reassess Saturday for possible wd vac placement surgically stable Objective Vital Signs - 12hr 03/07/18 03/07/18 02:00 07:53 Temperature 99.8 F H 99.6 F Pulse Rate 67 80 Respiratory 20 20 Rate Blood Pressure 144/54 Blood Pressure 127/43 [Left] O2 Sat by Pulse 100 97 Oximetry - Labs 03/07/18 09:57 03/06/18 07:16 Diabetes panel 03/07/18 Range/Units 05:38 AST 25 (5-40) units/L ALT 22 (7-56) units/L Alkaline Phosphatase 490 H (35-129) units/L Total Protein 5.9 L (6.3-8.2) g/dL Albumin 2.0 L (3.9-5) g/dL Calcium panel 03/07/18 Range/Units 05:38 Albumin 2.0 L (3.9-5) g/dL Adrenal panel 03/07/18 Range/Units 05:38 Total Bilirubin 1.20 (0.1-1.2) mg/dL AST 25 (5-40) units/L ALT 22 (7-56) units/L Alkaline Phosphatase 490 H (35-129) units/L Total Protein 5.9 L (6.3-8.2) g/dL Albumin 2.0 L (3.9-5) g/dL
--- NOTE | 2018-03-07 13:04 | Progress Note ---
Assessment and Plan Severe sepsis: Sacral Decubitus Ulcer: -ID on board, on zosyn -Surgery on board, s/p surgical debridement of sacral wound on 03/05/18 ESRD on HD: -no indication for HD today -Assess need for HD on daily basis -Renally dose meds -Strict intake and output -Continue supportive therapy Anemia in CKD: -Epogen with HD -No indication for transfusion Swelling in RUE - picc line noted, will order venous doppler Subjective Date of service: 03/07/18 Principal diagnosis: ESRD Interval history: more awake this AM but remains confused, daughter at bedside, all questions answered Objective - Vital Signs Vital signs: Vital Signs - 12hr 03/07/18 03/07/18 02:00 07:53 Temperature 99.8 F H 99.6 F Pulse Rate 67 80 Respiratory 20 20 Rate Blood Pressure 144/54 Blood Pressure 127/43 [Left] O2 Sat by Pulse 100 97 Oximetry - General Appearance General appearance: well-developed, well-nourished EENT: ATNC, PERRL, mucous membranes moist Neck: no JVD, no carotid bruit Respiratory: Present: Clear to Ascultation. Absent: Rales, Ronchi Cardiology: regular, S1S2 Gastrointestinal: normoactive bowel sounds, no tenderness, no distended Integumentary: no rash, warm and dry Neurologic: no focal deficit, no asterixis, alert and oriented x3 Musculoskeletal: other (trace pitting edema in BLE, swelling in RUE) - Lab 03/07/18 09:57 03/06/18 07:16 Most recent lab results Calcium 8.1 mg/dL (8.4-10.2) L 03/06/18 07:16
[2018-03-07] MEDS: DAKIN'S HALF STRENGTH TP SCH ×2 (17:00→21:00)
--- NOTE | 2018-03-07 18:37 | Progress Note ---
Assessment and Plan / Sepsis Secondary to infected decubitus ulcer and bacteremia Patient initiated on IV Zosyn and IV vancomycin / Encephalopathy acute on chronic Secondary to sepsis Continue IV fluids and IV antibiotics /Bacteremia with gram-positive cocci - Continue vancomycin for now, follow final culture results / Sacral decubitus ulcer, stage IV 6 cm 5 cm times a depth of 1.5 cm which is 15 cm on admission Drainage was present-foul smelling in nature. Continue IV vancomycin and IV Zosyn Surgery consult requested, Status post debridement of the sacral decubitus ulcer on 02/3018 ID following / Dehydration, improved with IV fluids /Hypertension Catapres patch initiated /Moderate to severe protein calorie Malnutrition Patient needs dietary supplements, dietitian consult requested /Anemia of chronic disease Anemia likely due to end-stage renal disease Epogen as necessary-will defer to Nephrology H and H dropped to 6.9, s/p 1 unit PRBC transfusion / ESRD needing dialysis Nephrology consulted for HD / Hyponatremia, corrected with HD /Dysphagia, off PEG tube feeding, on pureed diet /DVT prophylaxis On heparin 5000 every 12h Brief history: 72-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 The ulcer was initially is superficial but now it is very deep on the left sacral region. s/p debridgement by surgery, Cx result pending, ID following. off tube feeding, tolerating pureed diet. Per daughter pt was recently treated for herpes zoster and since then her mental status declined and became physically debilitated. Physical exam: General appearance: Present: no acute distress, no distress, elderly female - EENT Eyes: Present: PERRL ENT: hearing intact, clear oral mucosa - Neck Neck: Present: supple, normal ROM - Respiratory Respiratory effort: normal Respiratory: bilateral: CTA - Cardiovascular Heart rate: 80 Rhythm: regular Heart Sounds: Present: S1 & S2. Absent: rub, click - Extremities Extremities: pulses symmetrical, No edema Peripheral Pulses: within normal limits - Abdominal General gastrointestinal: Present: soft, non-tender, non-distended, normal bowel sounds, other (has a G-tube which is functioning) - Integumentary Integumentary: Present: clear, warm, dry, decreased turgor - Musculoskeletal Musculoskeletal: generalized weakness, - Psychiatric Psychiatric: no appropriate mood/affect, no intact judgment & insight - Neurologic Neurologic: CNII-XII intact, moves all extremities, does not follow commands - Allied Health Allied health notes reviewed: nursing, case management Subjective Date of service: 03/07/18 Principal diagnosis: ESRD Interval history: Patient seen and examined. Medical records and medication list reviewed. No acute event overnight noted by the RN. discussed with daughter at bedside Objective - Constitutional Vitals: Vital Signs - 12hr 03/07/18 03/07/18 03/07/18 07:53 10:00 13:22 Temperature 99.6 F 99.2 F Pulse Rate 80 82 Respiratory 20 18 20 Rate Blood Pressure 144/54 130/60 O2 Sat by Pulse 97 92 Oximetry - Labs CBC & Chem 7: 03/07/18 09:57 03/06/18 07:16 Labs: Abnormal lab results 03/06/18 03/07/18 03/07/18 Range/Units 22:34 05:38 08:01 WBC (4.5-11.0) K/mm3 RBC (3.65-5.03) M/mm3 Hgb (10.1-14.3) gm/dl Hct (30.3-42.9) % MCH (28-32) pg RDW (13.2-15.2) % Plt Count (140-440) K/mm3 Lymph % (Auto) (13.4-35.0) % Seg Neutrophils % (40.0-70.0) % Seg Neutrophils # (1.8-7.7) K/mm3 POC Glucose 220 H 118 H (70-105) Direct Bilirubin 0.8 H (0-0.2) mg/dL Alkaline Phosphatase 490 H (35-129) units/L Total Protein 5.9 L (6.3-8.2) g/dL Albumin 2.0 L (3.9-5) g/dL 03/07/18 03/07/18 03/07/18 Range/Units 09:57 11:59 17:03 WBC 17.9 H (4.5-11.0) K/mm3 RBC 3.41 L (3.65-5.03) M/mm3 Hgb 9.3 L (10.1-14.3) gm/dl Hct 28.3 L D (30.3-42.9) % MCH 27 L (28-32) pg RDW 19.0 H (13.2-15.2) % Plt Count 530 H (140-440) K/mm3 Lymph % (Auto) 6.5 L (13.4-35.0) % Seg Neutrophils % 88.9 H (40.0-70.0) % Seg Neutrophils # 15.9 H (1.8-7.7) K/mm3 POC Glucose 180 H 174 H (70-105) Direct Bilirubin (0-0.2) mg/dL Alkaline Phosphatase (35-129) units/L Total Protein (6.3-8.2) g/dL Albumin (3.9-5) g/dL
[2018-03-08] MEDS: NACL 0.9% 1000 ML 1,000 ML IV SCH ×2 (04:03→18:57)
[2018-03-08] MEDS: MORPHINE IV PRN ×3 (04:03→15:11)
[2018-03-08] MEDS: SODIUM CHLORIDE FLUSH SYRINGE 10 ML IV SCH ×3 (04:05→22:02)
[2018-03-08 05:33] LABS: Basophils # (Auto) 0.1 K/mm3 (0.0-0.1); Basophils % (Auto) 0.6 % (0.0-1.8); Eosinophils # (Auto) 0.2 K/mm3 (0.0-0.4); Eosinophils % (Auto) 1.1 % (0.0-4.3); Hematocrit 26.5 % (30.3-42.9); Hemoglobin 8.2 gm/dl (10.1-14.3); Lymphocytes # (Auto) 1.1 K/mm3 (1.2-5.4); Lymphocytes % (Auto) 6.8 % (13.4-35.0); Mean Corpuscular HGB Conc 31 % (30-34); Mean Corpuscular Hemoglobin 27 pg (28-32); Mean Corpuscular Volume 87 fl (79-97); Monocytes # (Auto) 0.7 K/mm3 (0.0-0.8); Monocytes % (Auto) 4.4 % (0.0-7.3); Platelet Count 586 K/mm3 (140-440); Red Blood Count 3.06 M/mm3 (3.65-5.03); Red Cell Distribution Width 19.1 % (13.2-15.2)
[2018-03-08 06:43] LABS: Calcium 7.8 mg/dL (8.4-10.2)
--- NOTE | 2018-03-08 07:59 | Progress Note ---
Assessment and Plan Assessment and plan: / Sepsis Secondary to infected decubitus ulcer and bacteremia Patient initiated on IV Zosyn and IV vancomycin 72-year-old female care home resident with multiple medical problems including PEG tube for feeding and ESRD on HD Admitted with fever and severe sacral decubitus ulcer which has been there for a long time but is worsened recently in the last one week. The ulcer was initially is superficial but now it is very deep on the left sacral region. Assessment and plan; --Metabolic Encephalopathy acute on chronic Secondary to sepsis, Continue IV fluids and IV antibiotics --Bacteremia with gram-positive cocci; Continue vancomycin for now, follow sensitivities --Sacral decubitus ulcer, stage IV; present on admission 6 cm 5 cm times a depth of 1.5 cm which is 15 cm on admission Drainage -foul smelling. Continue Vanco Zosyn Continue IV vancomycin and IV Zosyn Surgery and ID following , s/p debridement of the sacral decubitus ulcer on 02/3018 --Dehydration, resolved, continue IV fluids --Hypertension;Catapres patch when necessary medications --Moderate to severe protein calorie Malnutrition ; present on admission dietary supplements, dietitian consult requested --Anemia of chronic disease Anemia likely due to end-stage renal disease Epogen as necessary-will defer to Nephrology H and H dropped to 6.9, s/p 1 unit PRBC transfusion -- ESRD on hemodialysis;HD per scheduled, nephrology following --Hyponatremia, corrected with HD --Dysphagia, off PEG tube feeding, on pureed diet --DVT prophylaxis; heparin 5000 every 12h Physical therapy, occupational therapy as tolerated --Full code --DC planning. Case management when medically stable History Interval history: Patient seen and examined, medical records reviewed No new events reported Hospitalist Physical - Constitutional Vitals: Temp Pulse Resp BP Pulse Ox 101.4 F H 79 20 129/48 97 03/08/18 02:33 03/08/18 02:33 03/08/18 02:33 03/08/18 02:33 03/08/18 02:33 General appearance: Present: no acute distress, mild distress, well-nourished - EENT Eyes: Present: PERRL, EOM intact - Neck Neck: Present: supple - Respiratory Respiratory effort: normal Respiratory: bilateral: diminished, negative: rhonchi, wheezing - Cardiovascular Rhythm: regular Heart Sounds: Present: S1 & S2 - Extremities Extremities: no ischemia, pulses intact - Abdominal General gastrointestinal: soft, non-tender, non-distended, normal bowel sounds - Integumentary Integumentary: Present: clear, warm - Psychiatric Psychiatric: appropriate mood/affect, cooperative - Neurologic Neurologic: CNII-XII intact, moves all extremities - Allied Health Allied health notes reviewed: nursing, social work Results - Labs CBC & Chem 7: 03/08/18 05:04 03/08/18 05:04 Labs: Laboratory Last Values WBC 16.9 K/mm3 (4.5-11.0) H 03/08/18 05:04 RBC 3.06 M/mm3 (3.65-5.03) L 03/08/18 05:04 Hgb 8.2 gm/dl (10.1-14.3) L 03/08/18 05:04 Hct 26.5 % (30.3-42.9) L 03/08/18 05:04 MCV 87 fl (79-97) 03/08/18 05:04 MCH 27 pg (28-32) L 03/08/18 05:04 MCHC 31 % (30-34) 03/08/18 05:04 RDW 19.1 % (13.2-15.2) H 03/08/18 05:04 Plt Count 586 K/mm3 (140-440) H 03/08/18 05:04 Lymph % (Auto) 6.8 % (13.4-35.0) L 03/08/18 05:04 Hardy % (Auto) 4.4 % (0.0-7.3) 03/08/18 05:04 Eos % (Auto) 1.1 % (0.0-4.3) 03/08/18 05:04 Baso % (Auto) 0.6 % (0.0-1.8) 03/08/18 05:04 Lymph # 1.1 K/mm3 (1.2-5.4) L 03/08/18 05:04 Hardy # 0.7 K/mm3 (0.0-0.8) 03/08/18 05:04 Eos # 0.2 K/mm3 (0.0-0.4) 03/08/18 05:04 Baso # 0.1 K/mm3 (0.0-0.1) 03/08/18 05:04 Add Manual Diff Complete 03/06/18 07:16 Total Counted 100 03/06/18 07:16 Seg Neutrophils % 87.1 % (40.0-70.0) H 03/08/18 05:04 Seg Neuts % (Manual) 97.0 % (40.0-70.0) H 03/06/18 07:16 Band Neutrophils % 0 % 03/06/18 07:16 Lymphocytes % (Manual) 2.0 % (13.4-35.0) L 03/06/18 07:16 Reactive Lymphs % (Man) 0 % 03/06/18 07:16 Monocytes % (Manual) 0 % (0.0-7.3) 03/06/18 07:16 Eosinophils % (Manual) 1.0 % (0.0-4.3) 03/06/18 07:16 Basophils % (Manual) 0 % (0.0-1.8) 03/06/18 07:16 Metamyelocytes % 0 % 03/06/18 07:16 Myelocytes % 0 % 03/06/18 07:16 Promyelocytes % 0 % 03/06/18 07:16 Blast Cells % 0 % 03/06/18 07:16 Nucleated RBC % Not Reportable 03/06/18 07:16 Seg Neutrophils # 14.7 K/mm3 (1.8-7.7) H 03/08/18 05:04 Seg Neutrophils # Man 16.6 K/mm3 (1.8-7.7) H 03/06/18 07:16 Band Neutrophils # 0.0 K/mm3 03/06/18 07:16 Lymphocytes # (Manual) 0.3 K/mm3 (1.2-5.4) L 03/06/18 07:16 Abs React Lymphs (Man) 0.0 K/mm3 03/06/18 07:16 Monocytes # (Manual) 0.0 K/mm3 (0.0-0.8) 03/06/18 07:16 Eosinophils # (Manual) 0.2 K/mm3 (0.0-0.4) 03/06/18 07:16 Basophils # (Manual) 0.0 K/mm3 (0.0-0.1) 03/06/18 07:16 Metamyelocytes # 0.0 K/mm3 03/06/18 07:16 Myelocytes # 0.0 K/mm3 03/06/18 07:16 Promyelocytes # 0.0 K/mm3 03/06/18 07:16 Blast Cells # 0.0 K/mm3 03/06/18 07:16 WBC Morphology Not Reportable 03/06/18 07:16 Hypersegmented Neuts Not Reportable 03/06/18 07:16 Hyposegmented Neuts Not Reportable 03/06/18 07:16 Hypogranular Neuts Not Reportable 03/06/18 07:16 Smudge Cells Not Reportable 03/06/18 07:16 Toxic Granulation Not Reportable 03/06/18 07:16 Toxic Vacuolation Not Reportable 03/06/18 07:16 Dohle Bodies Not Reportable 03/06/18 07:16 Pelger-Huet Anomaly Not Reportable 03/06/18 07:16 Misti Rods Not Reportable 03/06/18 07:16 Platelet Estimate Cons 03/06/18 07:16 Clumped Platelets Not Reportable 03/06/18 07:16 Plt Clumps, EDTA Not Reportable 03/06/18 07:16 Large Platelets Not Reportable 03/06/18 07:16 Giant Platelets Not Reportable 03/06/18 07:16 Platelet Satelliting Not Reportable 03/06/18 07:16 Plt Morphology Comment Not Reportable 03/06/18 07:16 RBC Morphology Not Reportable 03/06/18 07:16 Dimorphic RBCs Not Reportable 03/06/18 07:16 Polychromasia Not Reportable 03/06/18 07:16 Hypochromasia 1+ 03/06/18 07:16 Poikilocytosis Not Reportable 03/06/18 07:16 Anisocytosis 1+ 03/06/18 07:16 Microcytosis Not Reportable 03/06/18 07:16 Macrocytosis Not Reportable 03/06/18 07:16 Spherocytes Not Reportable 03/06/18 07:16 Pappenheimer Bodies Not Reportable 03/06/18 07:16 Sickle Cells Not Reportable 03/06/18 07:16 Target Cells Not Reportable 03/06/18 07:16 Tear Drop Cells Not Reportable 03/06/18 07:16 Ovalocytes Not Reportable 03/06/18 07:16 Helmet Cells Not Reportable 03/06/18 07:16 Farley-Danforth Bodies Not Reportable 03/06/18 07:16 [place] Rings Not Reportable 03/06/18 07:16 Murray Cells Not Reportable 03/06/18 07:16 Bite Cells Not Reportable 03/06/18 07:16 Crenated Cell Not Reportable 03/06/18 07:16 Elliptocytes Not Reportable 03/06/18 07:16 Acanthocytes (Spur) Not Reportable 03/06/18 07:16 Rouleaux Not Reportable 03/06/18 07:16 Hemoglobin C Crystals Not Reportable 03/06/18 07:16 Schistocytes Not Reportable 03/06/18 07:16 Malaria parasites Not Reportable 03/06/18 07:16 ESR > 140.0 mm/Hr (0-20) 03/05/18 10:50 Nickolas Bodies Not Reportable 03/06/18 07:16 Hem Pathologist Commnt No 03/06/18 07:16 PT 14.7 Sec. (12.2-14.9) 03/03/18 11:45 INR 1.09 (0.87-1.13) 03/03/18 11:45 APTT 30.3 Sec. (24.2-36.6) 03/03/18 11:25 Sodium 139 mmol/L (137-145) 03/08/18 05:04 Potassium 4.1 mmol/L (3.6-5.0) 03/08/18 05:04 Chloride 101.9 mmol/L (98-107) 03/08/18 05:04 Carbon Dioxide 20 mmol/L (22-30) L 03/08/18 05:04 Anion Gap 21 mmol/L 03/08/18 05:04 BUN 26 mg/dL (7-17) H 03/08/18 05:04 Creatinine 2.4 mg/dL (0.7-1.2) H 03/08/18 05:04 Estimated GFR 24 ml/min 03/08/18 05:04 BUN/Creatinine Ratio 11 % 03/08/18 05:04 Glucose 84 mg/dL (65-100) 03/08/18 05:04 POC Glucose 107 (70-105) H 03/07/18 22:20 Hemoglobin A1c 5.8 % (4-6) 03/03/18 16:24 Lactic Acid 1.60 mmol/L (0.7-2.0) 03/03/18 15:26 Calcium 7.8 mg/dL (8.4-10.2) L 03/08/18 05:04 Total Bilirubin 1.20 mg/dL (0.1-1.2) 03/07/18 05:38 Direct Bilirubin 0.8 mg/dL (0-0.2) H 03/07/18 05:38 Indirect Bilirubin 0.4 mg/dL 03/07/18 05:38 AST 25 units/L (5-40) 03/07/18 05:38 ALT 22 units/L (7-56) 03/07/18 05:38 Alkaline Phosphatase 490 units/L (35-129) H 03/07/18 05:38 Total Creatine Kinase 173 units/L (30-135) H 03/03/18 11:45 C-Reactive Protein 22.60 mg/dL (0.00-1.30) H 03/05/18 10:50 Total Protein 5.9 g/dL (6.3-8.2) L 03/07/18 05:38 Albumin 2.0 g/dL (3.9-5) L 03/07/18 05:38 Albumin/Globulin Ratio 0.5 % 03/07/18 05:38 Urine Color Iza (Yellow) 03/04/18 00:17 Urine Turbidity Hazy (Clear) 03/04/18 00:17 Urine pH 7.0 (5.0-7.0) 03/04/18 00:17 Ur Specific [place] 1.015 (1.003-1.030) 03/04/18 00:17 Urine Protein 100 mg/dl mg/dL (Negative) 03/04/18 00:17 Urine Glucose (UA) 150 mg/dL (Negative) 03/04/18 00:17 Urine Ketones Neg mg/dL (Negative) 03/04/18 00:17 Urine Blood Sm (Negative) 03/04/18 00:17 Urine Nitrite Neg (Negative) 03/04/18 00:17 Urine Bilirubin Neg (Negative) 03/04/18 00:17 Urine Urobilinogen < 2.0 mg/dL (<2.0) 03/04/18 00:17 Ur Leukocyte Esterase Mod (Negative) 03/04/18 00:17 Urine WBC (Auto) 117.0 /HPF (0.0-6.0) H 03/04/18 00:17 Urine RBC (Auto) 22.0 /HPF (0.0-6.0) 03/04/18 00:17 U Epithel Cells (Auto) 2.0 /HPF (0-13.0) 03/04/18 00:17 Urine Bacteria (Auto) 2+ /HPF (Negative) 03/04/18 00:17 Urine WBC Clumps 2+ /HPF 03/04/18 00:17 Urine Mucus Few /HPF 03/04/18 00:17 Random Vancomycin 21.1 ug/mL (0-40.0) 03/06/18 07:16 Hepatitis A IgM Ab Non-reactive (NonReactive) 03/04/18 15:35 Hep Bs Antigen Non-reactive (Negative) 03/04/18 15:35 Hep B Core IgM Ab Non-reactive (NonReactive) 03/04/18 15:35 Hepatitis C Antibody Non-reactive (NonReactive) 03/04/18 15:35 Blood Type B POSITIVE 03/04/18 15:37 Antibody Screen Negative 03/04/18 15:37 Crossmatch See Detail 03/04/18 15:37
--- NOTE | 2018-03-08 08:56 | Progress Note ---
Assessment and Plan Assessment: 1) Sepsis: Present on admission, manifested by fever, tachycardia, hypotension, leukocytosis. Most likely due to infected sacral decubitus ulcer. Still with fever and elevated WBC. 2) Infected sacral decubitus ulcer. -s/p surgical debridement 03/05. As per operative report debridement down to bone and purulence noted. Wound cx with Polymicrobial growth (E. faecalis, K. oxytoca, K. pneumoniae, C. freundii) -ESR >140, CRP 22.60 3) Cogulase Neg Staph in 1/4 blood cultures bottles on 03/03. Contaminant. Repeat BCx 03/05 NGTD. 4) Elevated liver function tests. Improved. 5) Encephalopathy. Improved. 6) ESRD on HD. Plan: -Repeat blood cx x2 today. -Check CXR -Continue vancomycin and zosyn (D6). -Monitor CBC. -Since sacral ulcer went done to bone as per d/w surgery will need course of IV antibiotics for 4 weeks for clinical OM. -Final regimen of antibiotics will depend on final wound cx. Thank you for your consultation, will follow up with you. Radha Conner MD Infectious Diseases Specialist [facility] ([facility]) M [phone] Subjective Date of service: 03/08/18 Principal diagnosis: ESRD Interval history: Febrile today. Eating by mouth. No diarrhea. Microbiology: Blood cultures: 03/03: Coagulase Neg Staph (1/4 bottles) 03/05 NGTD Wound cultures: 03/05 surgical biopsy cx: C. freundii, E faecalis. 03/05 buttock cx: K. pneumoniae, C. freundii, E. faecalis 03/05 Surgery: E. faecalis, K. pneumoniae, K. oxytoca, GNR 03/05 anaerobic: NGTD Current Antimicrobials: Zosyn 03/03- Vancomcyin 03/03- Objective - Exam Narrative Exam: General appearance: Pt in NAD. Awake. Alert. Following commands. Eyes: anicteric sclerae, moist conjunctivae; PERRLA HENT: Atraumatic; oropharynx clear with moist mucous membranes and no mucosal ulcerations/no oral thrush; normal hard and soft palate. Normal external ears. Neck: Trachea midline; supple, no thyromegaly or lymphadenopathy Lungs: CTA, with normal respiratory effort and no intercostal retractions CV: S1,S2. RRR. Abdomen: Soft, non-tender; non-distended. G tube in place, site clean. Extremities: No peripheral edema or extremity lymphadenopathy. LUE AVF, thrill. Skin: Sacral decubitus ulcer with dressing. Neuro: Awake. Alert. Follows commands. Moves extremities. Lines: RUE midline - Constitutional Vitals: Vital Signs Temp Pulse Resp BP Pulse Ox 101.4 F H 79 20 129/48 97 03/08/18 02:33 03/08/18 02:33 03/08/18 02:33 03/08/18 02:33 03/08/18 02:33 Temperature -Last 24 Hours Temperature 101.4 F Temperature 97.4 F Temperature 99.2 F - Labs CBC & Chem 7: 03/08/18 05:04 03/08/18 05:04 Labs: Abnormal lab results 03/07/18 03/07/18 03/07/18 Range/Units 09:57 11:59 17:03 WBC 17.9 H (4.5-11.0) K/mm3 RBC 3.41 L (3.65-5.03) M/mm3 Hgb 9.3 L (10.1-14.3) gm/dl Hct 28.3 L D (30.3-42.9) % MCH 27 L (28-32) pg RDW 19.0 H (13.2-15.2) % Plt Count 530 H (140-440) K/mm3 Lymph % (Auto) 6.5 L (13.4-35.0) % Lymph # (1.2-5.4) K/mm3 Seg Neutrophils % 88.9 H (40.0-70.0) % Seg Neutrophils # 15.9 H (1.8-7.7) K/mm3 Carbon Dioxide (22-30) mmol/L BUN (7-17) mg/dL Creatinine (0.7-1.2) mg/dL POC Glucose 180 H 174 H (70-105) Calcium (8.4-10.2) mg/dL 03/07/18 03/08/18 03/08/18 Range/Units 22:20 05:04 05:04 WBC 16.9 H (4.5-11.0) K/mm3 RBC 3.06 L (3.65-5.03) M/mm3 Hgb 8.2 L (10.1-14.3) gm/dl Hct 26.5 L (30.3-42.9) % MCH 27 L (28-32) pg RDW 19.1 H (13.2-15.2) % Plt Count 586 H (140-440) K/mm3 Lymph % (Auto) 6.8 L (13.4-35.0) % Lymph # 1.1 L (1.2-5.4) K/mm3 Seg Neutrophils % 87.1 H (40.0-70.0) % Seg Neutrophils # 14.7 H (1.8-7.7) K/mm3 Carbon Dioxide 20 L (22-30) mmol/L BUN 26 H (7-17) mg/dL Creatinine 2.4 H (0.7-1.2) mg/dL POC Glucose 107 H (70-105) Calcium 7.8 L (8.4-10.2) mg/dL
[2018-03-08] MEDS: TYLENOL PO PRN ×2 (09:41→17:23)
[2018-03-08] MEDS: ZOSYN/NS 2.25 GM/50ML 2.25 GM/50 ML BAG IV SCH ×3 (09:46→22:01)
[2018-03-08] MEDS: DAKIN'S HALF STRENGTH TP SCH ×2 (09:47→22:02)
--- NOTE | 2018-03-08 11:02 | Progress Note ---
Assessment and Plan Severe sepsis: Sacral Decubitus Ulcer: -ID on board, on zosyn -Surgery on board, s/p surgical debridement of sacral wound on 03/05/18 ESRD on HD: -no indication for HD today -Assess need for HD on daily basis -Renally dose meds -Strict intake and output -Continue supportive therapy Anemia in CKD: -Epogen with HD -No indication for transfusion Swelling in RUE - picc line noted, will order venous doppler Subjective Date of service: 03/08/18 Principal diagnosis: ESRD Interval history: No acute events overnight. Objective - Exam Narrative Exam: General appearance: well-developed, well-nourished EENT: ATNC, PERRL, mucous membranes moist Neck: no JVD, no carotid bruit Respiratory: Present: Clear to Ascultation. Absent: Rales, Ronchi Cardiology: regular, S1S2 Gastrointestinal: normoactive bowel sounds, no tenderness, no distended Integumentary: no rash, warm and dry Neurologic: no focal deficit, no asterixis, alert and oriented x3 Musculoskeletal: other (trace pitting edema in BLE, swelling in RUE) - Vital Signs Vital signs: Vital Signs - 12hr 03/08/18 03/08/18 03/08/18 02:33 02:34 07:52 Temperature 101.4 F H 99.6 F Pulse Rate 79 77 77 Respiratory 20 17 Rate Blood Pressure 129/48 129/42 O2 Sat by Pulse 97 96 100 Oximetry - Lab 03/08/18 05:04 03/08/18 05:04 Most recent lab results Calcium 7.8 mg/dL (8.4-10.2) L 03/08/18 05:04
--- NOTE | 2018-03-08 11:12 | XRay Report ---
Single view chest: Compared to 03/03/18. History: Fever. Findings: Cardiomegaly. Trachea is midline. Mild pulmonary venous congestion. No consolidation or pleural effusion. Impression: Cardiomegaly with mild pulmonary venous congestion.
--- NOTE | 2018-03-08 12:35 | Progress Note ---
Assessment and Plan POD #2 Pt alert. comfortable dressings dry. surgically stable continue local care Selected Entries 03/07/18 03/08/18 03/08/18 07:53 02:33 07:52 Temperature 99.6 F 101.4 F H Pulse Rate 80 77 Respiratory 20 17 Rate Blood Pressure 144/54 129/42 Laboratory Tests 03/07/18 03/08/18 09:57 05:04 WBC 17.9 H 16.9 H Hgb 9.3 L 8.2 L Hct 28.3 L D 26.5 L Objective Vital Signs - 12hr 03/08/18 03/08/18 03/08/18 02:33 02:34 07:52 Temperature 101.4 F H 99.6 F Pulse Rate 79 77 77 Respiratory 20 17 Rate Blood Pressure 129/48 129/42 O2 Sat by Pulse 97 96 100 Oximetry - Labs 03/08/18 05:04 03/08/18 05:04 Diabetes panel 03/08/18 Range/Units 05:04 Sodium 139 (137-145) mmol/L Potassium 4.1 (3.6-5.0) mmol/L Chloride 101.9 (98-107) mmol/L Carbon Dioxide 20 L (22-30) mmol/L BUN 26 H (7-17) mg/dL Creatinine 2.4 H (0.7-1.2) mg/dL Glucose 84 (65-100) mg/dL Calcium 7.8 L (8.4-10.2) mg/dL Calcium panel 03/08/18 Range/Units 05:04 Calcium 7.8 L (8.4-10.2) mg/dL Pituitary panel 03/08/18 Range/Units 05:04 Sodium 139 (137-145) mmol/L Potassium 4.1 (3.6-5.0) mmol/L Chloride 101.9 (98-107) mmol/L Carbon Dioxide 20 L (22-30) mmol/L BUN 26 H (7-17) mg/dL Creatinine 2.4 H (0.7-1.2) mg/dL Glucose 84 (65-100) mg/dL Calcium 7.8 L (8.4-10.2) mg/dL Adrenal panel 03/08/18 Range/Units 05:04 Sodium 139 (137-145) mmol/L Potassium 4.1 (3.6-5.0) mmol/L Chloride 101.9 (98-107) mmol/L Carbon Dioxide 20 L (22-30) mmol/L BUN 26 H (7-17) mg/dL Creatinine 2.4 H (0.7-1.2) mg/dL Glucose 84 (65-100) mg/dL Calcium 7.8 L (8.4-10.2) mg/dL
[2018-03-08] MEDS ORDERED: VANCOMYCIN/NS 1 GM/250 ML 1 GM/250 ML BAG IV ONE ×2 (14:00→16:00)
[2018-03-09] MEDS: NACL 0.9% 1000 ML 1,000 ML IV SCH ×2 (01:16→12:52)
[2018-03-09] MEDS: MORPHINE IV PRN ×2 (05:52→22:08)
[2018-03-09] MEDS: ZOSYN/NS 2.25 GM/50ML 2.25 GM/50 ML BAG IV SCH ×3 (05:52→22:08)
--- NOTE | 2018-03-09 11:01 | Progress Note ---
Assessment and Plan Pt sleeping. no problems reported as per RN surgiclly stable to reassess wd in am Objective Vital Signs - 12hr 03/09/18 03/09/18 02:03 07:15 Temperature 98.8 F 99.0 F Pulse Rate 75 77 Respiratory 18 18 Rate Blood Pressure 123/51 171/76 O2 Sat by Pulse 100 98 Oximetry - Labs 03/08/18 05:04 03/08/18 05:04
--- NOTE | 2018-03-09 11:06 | Progress Note ---
Assessment and Plan Severe sepsis: Sacral Decubitus Ulcer: -ID on board, on zosyn -Surgery on board, s/p surgical debridement of sacral wound on 03/05/18 ESRD on HD: -no indication for HD today. HD tomorrow. -Assess need for HD on daily basis -Renally dose meds -Strict intake and output -Continue supportive therapy Anemia in CKD: -Epogen with HD -No indication for transfusion Swelling in RUE - picc line noted, will order venous doppler Antoine Harden MD [phone] Subjective Date of service: 03/09/18 Principal diagnosis: ESRD Interval history: Confused. Objective - Exam Narrative Exam: General appearance: well-developed, well-nourished EENT: ATNC, PERRL, mucous membranes moist Neck: no JVD, no carotid bruit Respiratory: Present: Clear to Ascultation. Absent: Rales, Ronchi Cardiology: regular, S1S2 Gastrointestinal: normoactive bowel sounds, no tenderness, no distended Integumentary: no rash, warm and dry Neurologic: no focal deficit, no asterixis, alert and oriented x3 Musculoskeletal: other (trace pitting edema in BLE, swelling in RUE) - Vital Signs Vital signs: Vital Signs - 12hr 03/09/18 03/09/18 02:03 07:15 Temperature 98.8 F 99.0 F Pulse Rate 75 77 Respiratory 18 18 Rate Blood Pressure 123/51 171/76 O2 Sat by Pulse 100 98 Oximetry - Lab 03/09/18 10:29 03/09/18 10:29 Most recent lab results Calcium 7.8 mg/dL (8.4-10.2) L 03/08/18 05:04
[2018-03-09 11:28] LABS: Basophils # (Auto) 0.1 K/mm3 (0.0-0.1); Basophils % (Auto) 0.6 % (0.0-1.8); Eosinophils # (Auto) 0.2 K/mm3 (0.0-0.4); Eosinophils % (Auto) 1.5 % (0.0-4.3); Hematocrit 26.2 % (30.3-42.9); Hemoglobin 8.2 gm/dl (10.1-14.3); Mean Corpuscular HGB Conc 32 % (30-34); Mean Corpuscular Hemoglobin 27 pg (28-32); Mean Corpuscular Volume 86 fl (79-97); Monocytes # (Auto) 0.7 K/mm3 (0.0-0.8); Platelet Count 617 K/mm3 (140-440); Red Blood Count 3.04 M/mm3 (3.65-5.03); Red Cell Distribution Width 19.2 % (13.2-15.2)
[2018-03-09] MEDS: SODIUM CHLORIDE FLUSH SYRINGE 10 ML IV SCH ×2 (11:30→22:10)
[2018-03-09] MEDS: DAKIN'S HALF STRENGTH TP SCH ×2 (11:30→22:09)
[2018-03-09 11:44] LABS: Calcium 7.2 mg/dL (8.4-10.2)
--- NOTE | 2018-03-09 13:03 | Progress Note ---
Assessment and Plan Assessment and plan: --Sepsis: Secondary to infected decubitus ulcer and bacteremia Continue IV Zosyn and IV vancomycin --Metabolic Encephalopathy acute on chronic Secondary to sepsis, Continue IV fluids and IV antibiotics --Sacral decubitus ulcer, stage IV; present on admission s/p surgical debridement, 03/05/2018 Continue current antibiotics --Dehydration, resolved, closely monitor --Hypertension; moderate control continue current antihypertensives and when necessary medications --Moderate to severe protein calorie Malnutrition ; present on admission dietary supplements supportive care --Anemia of chronic disease: Post 1 unit PRBC transfusion, significant improvement of hemoglobin Epogen per nephrology, closely monitor -- ESRD on hemodialysis;HD per scheduled, nephrology following --Hyponatremia: mild improvement , closely monitor --Dysphagia; post modified barium swallow study, speech therapy advised Mechanical soft diet. --DVT prophylaxis; heparin 5000 every 12h Physical therapy, occupational therapy as tolerated --Full code status --DC planning. per Case management when medically stable Consults and recommendations noted and appreciated History Interval history: Patient seen and examined medical records reviewed Patient is alert and awake, not in acute distress Confused at times Vital signs reviewed Hospitalist Physical - Constitutional Vitals: Temp Pulse Resp BP Pulse Ox 99.0 F 77 18 171/76 98 03/09/18 07:15 03/09/18 07:15 03/09/18 07:15 03/09/18 07:15 03/09/18 07:15 General appearance: Present: no acute distress, mild distress, well-nourished, other (involuntary jaw movements/possible TD) - EENT Eyes: Present: PERRL, EOM intact - Neck Neck: Present: supple - Respiratory Respiratory effort: normal Respiratory: bilateral: rhonchi, negative: rales, wheezing - Cardiovascular Rhythm: regular Heart Sounds: Present: S1 & S2 - Extremities Extremities: no ischemia, No edema - Abdominal General gastrointestinal: soft, non-tender, non-distended, normal bowel sounds - Integumentary Integumentary: Present: clear, warm (stage IV sacral decubitus ulcer/dressing in place) - Psychiatric Psychiatric: cooperative - Neurologic Neurologic: moves all extremities Results - Labs CBC & Chem 7: 03/09/18 10:29 03/09/18 10:29 Labs: Laboratory Last Values WBC 13.9 K/mm3 (4.5-11.0) H 03/09/18 10:29 RBC 3.04 M/mm3 (3.65-5.03) L 03/09/18 10:29 Hgb 8.2 gm/dl (10.1-14.3) L 03/09/18 10:29 Hct 26.2 % (30.3-42.9) L 03/09/18 10:29 MCV 86 fl (79-97) 03/09/18 10:29 MCH 27 pg (28-32) L 03/09/18 10:29 MCHC 32 % (30-34) 03/09/18 10:29 RDW 19.2 % (13.2-15.2) H 03/09/18 10:29 Plt Count 617 K/mm3 (140-440) H 03/09/18 10:29 Lymph % (Auto) 7.0 % (13.4-35.0) L 03/09/18 10:29 [place] % (Auto) 5.0 % (0.0-7.3) 03/09/18 10:29 Eos % (Auto) 1.5 % (0.0-4.3) 03/09/18 10:29 Baso % (Auto) 0.6 % (0.0-1.8) 03/09/18 10:29 Lymph # 1.0 K/mm3 (1.2-5.4) L 03/09/18 10:29 [place] # 0.7 K/mm3 (0.0-0.8) 03/09/18 10:29 Eos # 0.2 K/mm3 (0.0-0.4) 03/09/18 10:29 Baso # 0.1 K/mm3 (0.0-0.1) 03/09/18 10:29 Add Manual Diff Complete 03/06/18 07:16 Total Counted 100 03/06/18 07:16 Seg Neutrophils % 85.9 % (40.0-70.0) H 03/09/18 10:29 Seg Neuts % (Manual) 97.0 % (40.0-70.0) H 03/06/18 07:16 Band Neutrophils % 0 % 03/06/18 07:16 Lymphocytes % (Manual) 2.0 % (13.4-35.0) L 03/06/18 07:16 Reactive Lymphs % (Man) 0 % 03/06/18 07:16 Monocytes % (Manual) 0 % (0.0-7.3) 03/06/18 07:16 Eosinophils % (Manual) 1.0 % (0.0-4.3) 03/06/18 07:16 Basophils % (Manual) 0 % (0.0-1.8) 03/06/18 07:16 Metamyelocytes % 0 % 03/06/18 07:16 Myelocytes % 0 % 03/06/18 07:16 Promyelocytes % 0 % 03/06/18 07:16 Blast Cells % 0 % 03/06/18 07:16 Nucleated RBC % Not Reportable 03/06/18 07:16 Seg Neutrophils # 11.9 K/mm3 (1.8-7.7) H 03/09/18 10:29 Seg Neutrophils # Man 16.6 K/mm3 (1.8-7.7) H 03/06/18 07:16 Band Neutrophils # 0.0 K/mm3 03/06/18 07:16 Lymphocytes # (Manual) 0.3 K/mm3 (1.2-5.4) L 03/06/18 07:16 Abs React Lymphs (Man) 0.0 K/mm3 03/06/18 07:16 Monocytes # (Manual) 0.0 K/mm3 (0.0-0.8) 03/06/18 07:16 Eosinophils # (Manual) 0.2 K/mm3 (0.0-0.4) 03/06/18 07:16 Basophils # (Manual) 0.0 K/mm3 (0.0-0.1) 03/06/18 07:16 Metamyelocytes # 0.0 K/mm3 03/06/18 07:16 Myelocytes # 0.0 K/mm3 03/06/18 07:16 Promyelocytes # 0.0 K/mm3 03/06/18 07:16 Blast Cells # 0.0 K/mm3 03/06/18 07:16 WBC Morphology Not Reportable 03/06/18 07:16 Hypersegmented Neuts Not Reportable 03/06/18 07:16 Hyposegmented Neuts Not Reportable 03/06/18 07:16 Hypogranular Neuts Not Reportable 03/06/18 07:16 Smudge Cells Not Reportable 03/06/18 07:16 Toxic Granulation Not Reportable 03/06/18 07:16 Toxic Vacuolation Not Reportable 03/06/18 07:16 Dohle Bodies Not Reportable 03/06/18 07:16 Pelger-Huet Anomaly Not Reportable 03/06/18 07:16 Misti Rods Not Reportable 03/06/18 07:16 Platelet Estimate Cons 03/06/18 07:16 Clumped Platelets Not Reportable 03/06/18 07:16 Plt Clumps, EDTA Not Reportable 03/06/18 07:16 Large Platelets Not Reportable 03/06/18 07:16 Giant Platelets Not Reportable 03/06/18 07:16 Platelet Satelliting Not Reportable 03/06/18 07:16 Plt Morphology Comment Not Reportable 03/06/18 07:16 RBC Morphology Not Reportable 03/06/18 07:16 Dimorphic RBCs Not Reportable 03/06/18 07:16 Polychromasia Not Reportable 03/06/18 07:16 Hypochromasia 1+ 03/06/18 07:16 Poikilocytosis Not Reportable 03/06/18 07:16 Anisocytosis 1+ 03/06/18 07:16 Microcytosis Not Reportable 03/06/18 07:16 Macrocytosis Not Reportable 03/06/18 07:16 Spherocytes Not Reportable 03/06/18 07:16 Pappenheimer Bodies Not Reportable 03/06/18 07:16 Sickle Cells Not Reportable 03/06/18 07:16 Target Cells Not Reportable 03/06/18 07:16 Tear Drop Cells Not Reportable 03/06/18 07:16 Ovalocytes Not Reportable 03/06/18 07:16 Helmet Cells Not Reportable 03/06/18 07:16 [place] Bodies Not Reportable 03/06/18 07:16 [place] Rings Not Reportable 03/06/18 07:16 [place] Cells Not Reportable 03/06/18 07:16 Bite Cells Not Reportable 03/06/18 07:16 Crenated Cell Not Reportable 03/06/18 07:16 Elliptocytes Not Reportable 03/06/18 07:16 Acanthocytes (Spur) Not Reportable 03/06/18 07:16 Rouleaux Not Reportable 03/06/18 07:16 Hemoglobin C Crystals Not Reportable 03/06/18 07:16 Schistocytes Not Reportable 03/06/18 07:16 Malaria parasites Not Reportable 03/06/18 07:16 ESR > 140.0 mm/Hr (0-20) 03/05/18 10:50 [place] Bodies Not Reportable 03/06/18 07:16 Hem Pathologist Commnt No 03/06/18 07:16 PT 14.7 Sec. (12.2-14.9) 03/03/18 11:45 INR 1.09 (0.87-1.13) 03/03/18 11:45 APTT 30.3 Sec. (24.2-36.6) 03/03/18 11:25 Sodium 133 mmol/L (137-145) L 03/09/18 10:29 Potassium 4.3 mmol/L (3.6-5.0) 03/09/18 10:29 Chloride 97.3 mmol/L (98-107) L 03/09/18 10:29 Carbon Dioxide 20 mmol/L (22-30) L 03/09/18 10:29 Anion Gap 20 mmol/L 03/09/18 10:29 BUN 29 mg/dL (7-17) H 03/09/18 10:29 Creatinine 2.7 mg/dL (0.7-1.2) H 03/09/18 10:29 Estimated GFR 21 ml/min 03/09/18 10:29 BUN/Creatinine Ratio 11 % 03/09/18 10:29 Glucose 88 mg/dL (65-100) 03/09/18 10:29 POC Glucose 105 (70-105) 03/09/18 11:23 Hemoglobin A1c 5.8 % (4-6) 03/03/18 16:24 Lactic Acid 1.60 mmol/L (0.7-2.0) 03/03/18 15:26 Calcium 7.2 mg/dL (8.4-10.2) L 03/09/18 10:29 Total Bilirubin 1.20 mg/dL (0.1-1.2) 03/07/18 05:38 Direct Bilirubin 0.8 mg/dL (0-0.2) H 03/07/18 05:38 Indirect Bilirubin 0.4 mg/dL 03/07/18 05:38 AST 25 units/L (5-40) 03/07/18 05:38 ALT 22 units/L (7-56) 03/07/18 05:38 Alkaline Phosphatase 490 units/L (35-129) H 03/07/18 05:38 Total Creatine Kinase 173 units/L (30-135) H 03/03/18 11:45 C-Reactive Protein 22.60 mg/dL (0.00-1.30) H 03/05/18 10:50 Total Protein 5.9 g/dL (6.3-8.2) L 03/07/18 05:38 Albumin 2.0 g/dL (3.9-5) L 03/07/18 05:38 Albumin/Globulin Ratio 0.5 % 03/07/18 05:38 Urine Color Iza (Yellow) 03/04/18 00:17 Urine Turbidity Hazy (Clear) 03/04/18 00:17 Urine pH 7.0 (5.0-7.0) 03/04/18 00:17 Ur Specific [place] 1.015 (1.003-1.030) 03/04/18 00:17 Urine Protein 100 mg/dl mg/dL (Negative) 03/04/18 00:17 Urine Glucose (UA) 150 mg/dL (Negative) 03/04/18 00:17 Urine Ketones Neg mg/dL (Negative) 03/04/18 00:17 Urine Blood Sm (Negative) 03/04/18 00:17 Urine Nitrite Neg (Negative) 03/04/18 00:17 Urine Bilirubin Neg (Negative) 03/04/18 00:17 Urine Urobilinogen < 2.0 mg/dL (<2.0) 03/04/18 00:17 Ur Leukocyte Esterase Mod (Negative) 03/04/18 00:17 Urine WBC (Auto) 117.0 /HPF (0.0-6.0) H 03/04/18 00:17 Urine RBC (Auto) 22.0 /HPF (0.0-6.0) 03/04/18 00:17 U Epithel Cells (Auto) 2.0 /HPF (0-13.0) 03/04/18 00:17 Urine Bacteria (Auto) 2+ /HPF (Negative) 03/04/18 00:17 Urine WBC Clumps 2+ /HPF 03/04/18 00:17 Urine Mucus Few /HPF 03/04/18 00:17 Random Vancomycin 25.4 ug/mL (0-40.0) 03/09/18 10:29 Hepatitis A IgM Ab Non-reactive (NonReactive) 03/04/18 15:35 Hep Bs Antigen Non-reactive (Negative) 03/04/18 15:35 Hep B Core IgM Ab Non-reactive (NonReactive) 03/04/18 15:35 Hepatitis C Antibody Non-reactive (NonReactive) 03/04/18 15:35 Blood Type B POSITIVE 03/04/18 15:37 Antibody Screen Negative 03/04/18 15:37 Crossmatch See Detail 03/04/18 15:37
[2018-03-09] MEDS ORDERED: NACL 0.9% 100 ML IV PRN (15:00)
[2018-03-09 17:52] LABS: Calcium 7.5 mg/dL (8.4-10.2)
[2018-03-10] MEDS: NACL 0.9% 1000 ML 1,000 ML IV SCH ×2 (01:20→22:05)
[2018-03-10] MEDS: ZOSYN/NS 2.25 GM/50ML 2.25 GM/50 ML BAG IV SCH ×4 (04:49→22:05)
[2018-03-10 07:30] LABS: Basophils # (Auto) 0.1 K/mm3 (0.0-0.1); Basophils % (Auto) 0.6 % (0.0-1.8); Eosinophils # (Auto) 0.2 K/mm3 (0.0-0.4); Eosinophils % (Auto) 1.7 % (0.0-4.3); Hematocrit 28.2 % (30.3-42.9); Hemoglobin 8.7 gm/dl (10.1-14.3); Lymphocytes # (Auto) 1.3 K/mm3 (1.2-5.4); Lymphocytes % (Auto) 10.1 % (13.4-35.0); Mean Corpuscular HGB Conc 31 % (30-34); Mean Corpuscular Hemoglobin 27 pg (28-32); Mean Corpuscular Volume 87 fl (79-97); Monocytes # (Auto) 0.8 K/mm3 (0.0-0.8); Monocytes % (Auto) 6.2 % (0.0-7.3); Platelet Count 731 K/mm3 (140-440); Red Blood Count 3.25 M/mm3 (3.65-5.03)
[2018-03-10 07:32] LABS: Calcium 7.3 mg/dL (8.4-10.2)
--- NOTE | 2018-03-10 08:05 | Progress Note ---
Assessment and Plan Assessment and plan: --Sacral decubitus ulcer, stage IV; present on admission s/p surgical debridement, 03/05/2018 Continue current antibiotics I did recommend total 4 weeks, 3 more weeks of IV antibiotics DC plann, per case management, patient may need PICC line --Sepsis: Secondary to infected decubitus ulcer and bacteremia Continue IV Zosyn and IV vancomycin --Metabolic Encephalopathy acute on chronic Secondary to sepsis, Continue IV fluids and IV antibiotics --Dehydration, resolved, closely monitor --Hypertension; moderate control continue current antihypertensives and when necessary medications --Moderate to severe protein calorie Malnutrition ; present on admission dietary supplements supportive care --Anemia of chronic disease: Post 1 unit PRBC transfusion, significant improvement of hemoglobin Epogen per nephrology, closely monitor -- ESRD on hemodialysis;HD per scheduled, nephrology following --Hyponatremia: mild improvement , closely monitor --Dysphagia; post modified barium swallow study, speech therapy advised Mechanical soft diet. --DVT prophylaxis; heparin 5000 every 12h Physical therapy, occupational therapy as tolerated --Full code status --DC planning. per Case management when medically stable Consults and recommendations noted and appreciated History Interval history: Sincerely and examined medical records reviewed Patient is alert and awake no new complaints Vital signs reviewed, not in acute distress On long-term antibiotics Vanco and Zosyn total 4 weeks as recommended by ID Need 3 more weeks of IV Vanco and Zosyn Vital signs reviewed Hospitalist Physical - Constitutional Vitals: Temp Pulse Resp BP Pulse Ox 99.1 F 74 20 151/62 90 03/10/18 07:27 03/10/18 07:27 03/10/18 07:27 03/10/18 07:27 03/10/18 07:27 General appearance: Present: no acute distress, mild distress, well-nourished, other (involuntary jaw movements/possible TD) - EENT Eyes: Present: PERRL, EOM intact - Neck Neck: Present: supple, normal ROM - Respiratory Respiratory effort: normal Respiratory: bilateral: diminished, negative: rales, rhonchi, wheezing - Cardiovascular Rhythm: regular Heart Sounds: Present: S1 & S2 - Extremities Extremities: no ischemia Extremity abnormal: edema - Abdominal General gastrointestinal: soft, non-tender, non-distended, normal bowel sounds - Integumentary Integumentary: Present: clear, warm - Psychiatric Psychiatric: other (confused at times) - Neurologic Neurologic: moves all extremities, other (involuntary facial movements/probably TD) Results - Labs CBC & Chem 7: 03/10/18 06:56 03/10/18 06:56 Labs: Laboratory Last Values WBC 12.6 K/mm3 (4.5-11.0) H 03/10/18 06:56 RBC 3.25 M/mm3 (3.65-5.03) L 03/10/18 06:56 Hgb 8.7 gm/dl (10.1-14.3) L 03/10/18 06:56 Hct 28.2 % (30.3-42.9) L 03/10/18 06:56 MCV 87 fl (79-97) 03/10/18 06:56 MCH 27 pg (28-32) L 03/10/18 06:56 MCHC 31 % (30-34) 03/10/18 06:56 RDW 20.0 % (13.2-15.2) H 03/10/18 06:56 Plt Count 731 K/mm3 (140-440) H 03/10/18 06:56 Lymph % (Auto) 10.1 % (13.4-35.0) L 03/10/18 06:56 [place] % (Auto) 6.2 % (0.0-7.3) 03/10/18 06:56 Eos % (Auto) 1.7 % (0.0-4.3) 03/10/18 06:56 Baso % (Auto) 0.6 % (0.0-1.8) 03/10/18 06:56 Lymph # 1.3 K/mm3 (1.2-5.4) 03/10/18 06:56 [place] # 0.8 K/mm3 (0.0-0.8) 03/10/18 06:56 Eos # 0.2 K/mm3 (0.0-0.4) 03/10/18 06:56 Baso # 0.1 K/mm3 (0.0-0.1) 03/10/18 06:56 Add Manual Diff Complete 03/06/18 07:16 Total Counted 100 03/06/18 07:16 Seg Neutrophils % 81.4 % (40.0-70.0) H 03/10/18 06:56 Seg Neuts % (Manual) 97.0 % (40.0-70.0) H 03/06/18 07:16 Band Neutrophils % 0 % 03/06/18 07:16 Lymphocytes % (Manual) 2.0 % (13.4-35.0) L 03/06/18 07:16 Reactive Lymphs % (Man) 0 % 03/06/18 07:16 Monocytes % (Manual) 0 % (0.0-7.3) 03/06/18 07:16 Eosinophils % (Manual) 1.0 % (0.0-4.3) 03/06/18 07:16 Basophils % (Manual) 0 % (0.0-1.8) 03/06/18 07:16 Metamyelocytes % 0 % 03/06/18 07:16 Myelocytes % 0 % 03/06/18 07:16 Promyelocytes % 0 % 03/06/18 07:16 Blast Cells % 0 % 03/06/18 07:16 Nucleated RBC % Not Reportable 03/06/18 07:16 Seg Neutrophils # 10.3 K/mm3 (1.8-7.7) H 03/10/18 06:56 Seg Neutrophils # Man 16.6 K/mm3 (1.8-7.7) H 03/06/18 07:16 Band Neutrophils # 0.0 K/mm3 03/06/18 07:16 Lymphocytes # (Manual) 0.3 K/mm3 (1.2-5.4) L 03/06/18 07:16 Abs React Lymphs (Man) 0.0 K/mm3 03/06/18 07:16 Monocytes # (Manual) 0.0 K/mm3 (0.0-0.8) 03/06/18 07:16 Eosinophils # (Manual) 0.2 K/mm3 (0.0-0.4) 03/06/18 07:16 Basophils # (Manual) 0.0 K/mm3 (0.0-0.1) 03/06/18 07:16 Metamyelocytes # 0.0 K/mm3 03/06/18 07:16 Myelocytes # 0.0 K/mm3 03/06/18 07:16 Promyelocytes # 0.0 K/mm3 03/06/18 07:16 Blast Cells # 0.0 K/mm3 03/06/18 07:16 WBC Morphology Not Reportable 03/06/18 07:16 Hypersegmented Neuts Not Reportable 03/06/18 07:16 Hyposegmented Neuts Not Reportable 03/06/18 07:16 Hypogranular Neuts Not Reportable 03/06/18 07:16 Smudge Cells Not Reportable 03/06/18 07:16 Toxic Granulation Not Reportable 03/06/18 07:16 Toxic Vacuolation Not Reportable 03/06/18 07:16 Dohle Bodies Not Reportable 03/06/18 07:16 Pelger-Huet Anomaly Not Reportable 03/06/18 07:16 Misti Rods Not Reportable 03/06/18 07:16 Platelet Estimate Cons 03/06/18 07:16 Clumped Platelets Not Reportable 03/06/18 07:16 Plt Clumps, EDTA Not Reportable 03/06/18 07:16 Large Platelets Not Reportable 03/06/18 07:16 Giant Platelets Not Reportable 03/06/18 07:16 Platelet Satelliting Not Reportable 03/06/18 07:16 Plt Morphology Comment Not Reportable 03/06/18 07:16 RBC Morphology Not Reportable 03/06/18 07:16 Dimorphic RBCs Not Reportable 03/06/18 07:16 Polychromasia Not Reportable 03/06/18 07:16 Hypochromasia 1+ 03/06/18 07:16 Poikilocytosis Not Reportable 03/06/18 07:16 Anisocytosis 1+ 03/06/18 07:16 Microcytosis Not Reportable 03/06/18 07:16 Macrocytosis Not Reportable 03/06/18 07:16 Spherocytes Not Reportable 03/06/18 07:16 Pappenheimer Bodies Not Reportable 03/06/18 07:16 Sickle Cells Not Reportable 03/06/18 07:16 Target Cells Not Reportable 03/06/18 07:16 Tear Drop Cells Not Reportable 03/06/18 07:16 Ovalocytes Not Reportable 03/06/18 07:16 Helmet Cells Not Reportable 03/06/18 07:16 [place] Bodies Not Reportable 03/06/18 07:16 [place] Rings Not Reportable 03/06/18 07:16 [place] Cells Not Reportable 03/06/18 07:16 Bite Cells Not Reportable 03/06/18 07:16 Crenated Cell Not Reportable 03/06/18 07:16 Elliptocytes Not Reportable 03/06/18 07:16 Acanthocytes (Spur) Not Reportable 03/06/18 07:16 Rouleaux Not Reportable 03/06/18 07:16 Hemoglobin C Crystals Not Reportable 03/06/18 07:16 Schistocytes Not Reportable 03/06/18 07:16 Malaria parasites Not Reportable 03/06/18 07:16 ESR > 140.0 mm/Hr (0-20) 03/05/18 10:50 [place] Bodies Not Reportable 03/06/18 07:16 Hem Pathologist Commnt No 03/06/18 07:16 PT 14.7 Sec. (12.2-14.9) 03/03/18 11:45 INR 1.09 (0.87-1.13) 03/03/18 11:45 APTT 30.3 Sec. (24.2-36.6) 03/03/18 11:25 Sodium 134 mmol/L (137-145) L 03/10/18 06:56 Potassium 4.6 mmol/L (3.6-5.0) 03/10/18 06:56 Chloride 98.5 mmol/L (98-107) 03/10/18 06:56 Carbon Dioxide 19 mmol/L (22-30) L 03/10/18 06:56 Anion Gap 21 mmol/L 03/10/18 06:56 BUN 30 mg/dL (7-17) H 03/10/18 06:56 Creatinine 3.0 mg/dL (0.7-1.2) H 03/10/18 06:56 Estimated GFR 19 ml/min 03/10/18 06:56 BUN/Creatinine Ratio 10 % 03/10/18 06:56 Glucose 73 mg/dL (65-100) 03/10/18 06:56 POC Glucose 69 (70-105) L 03/10/18 07:29 Hemoglobin A1c 5.8 % (4-6) 03/03/18 16:24 Lactic Acid 1.60 mmol/L (0.7-2.0) 03/03/18 15:26 Calcium 7.3 mg/dL (8.4-10.2) L 03/10/18 06:56 Total Bilirubin 1.20 mg/dL (0.1-1.2) 03/07/18 05:38 Direct Bilirubin 0.8 mg/dL (0-0.2) H 03/07/18 05:38 Indirect Bilirubin 0.4 mg/dL 03/07/18 05:38 AST 25 units/L (5-40) 03/07/18 05:38 ALT 22 units/L (7-56) 03/07/18 05:38 Alkaline Phosphatase 490 units/L (35-129) H 03/07/18 05:38 Total Creatine Kinase 173 units/L (30-135) H 03/03/18 11:45 C-Reactive Protein 22.60 mg/dL (0.00-1.30) H 03/05/18 10:50 Total Protein 5.9 g/dL (6.3-8.2) L 03/07/18 05:38 Albumin 2.0 g/dL (3.9-5) L 03/07/18 05:38 Albumin/Globulin Ratio 0.5 % 03/07/18 05:38 Urine Color Iza (Yellow) 03/04/18 00:17 Urine Turbidity Hazy (Clear) 03/04/18 00:17 Urine pH 7.0 (5.0-7.0) 03/04/18 00:17 Ur Specific [place] 1.015 (1.003-1.030) 03/04/18 00:17 Urine Protein 100 mg/dl mg/dL (Negative) 03/04/18 00:17 Urine Glucose (UA) 150 mg/dL (Negative) 03/04/18 00:17 Urine Ketones Neg mg/dL (Negative) 03/04/18 00:17 Urine Blood Sm (Negative) 03/04/18 00:17 Urine Nitrite Neg (Negative) 03/04/18 00:17 Urine Bilirubin Neg (Negative) 03/04/18 00:17 Urine Urobilinogen < 2.0 mg/dL (<2.0) 03/04/18 00:17 Ur Leukocyte Esterase Mod (Negative) 03/04/18 00:17 Urine WBC (Auto) 117.0 /HPF (0.0-6.0) H 03/04/18 00:17 Urine RBC (Auto) 22.0 /HPF (0.0-6.0) 05/29/18 00:17 U Epithel Cells (Auto) 2.0 /HPF (0-13.0) 03/04/18 00:17 Urine Bacteria (Auto) 2+ /HPF (Negative) 03/04/18 00:17 Urine WBC Clumps 2+ /HPF 03/04/18 00:17 Urine Mucus Few /HPF 03/04/18 00:17 Random Vancomycin 25.4 ug/mL (0-40.0) 03/09/18 10:29 Hepatitis A IgM Ab Non-reactive (NonReactive) 03/04/18 15:35 Hep Bs Antigen Non-reactive (Negative) 03/04/18 15:35 Hep B Core IgM Ab Non-reactive (NonReactive) 03/04/18 15:35 Hepatitis C Antibody Non-reactive (NonReactive) 03/04/18 15:35 Blood Type B POSITIVE 03/04/18 15:37 Antibody Screen Negative 03/04/18 15:37 Crossmatch See Detail 03/04/18 15:37
[2018-03-10] MEDS: MORPHINE IV PRN ×2 (09:12→12:44)
[2018-03-10] MEDS: SODIUM CHLORIDE FLUSH SYRINGE 10 ML IV SCH ×2 (09:12→22:05)
--- NOTE | 2018-03-10 11:18 | Progress Note ---
Assessment and Plan Assessment: 1) Sepsis: still low grade fever and leukocytosis. Most likely due to infected sacral decubitus ulcer. 2) Infected sacral decubitus ulcer. -s/p surgical debridement 03/05. As per operative report debridement down to bone and purulence noted. Wound cx with Polymicrobial growth (E. faecalis, K. oxytoca, K. pneumoniae, C. freundii) -ESR >140, CRP 22.60 3) Cogulase Neg Staph in 1/4 blood cultures bottles on 03/03. Contaminant. Repeat BCx 03/05 NGTD. 4) Elevated liver function tests. Improved. 5) Encephalopathy. Improved. 6) ESRD on HD. Plan: -Still purulence on wound exam - please ask surgery if she needs further debridement in light of low grade fever and leukocytosis -Continue vancomycin and zosyn (D8). -upon discharge will do ciprofloxacin 500 mg PO qday and vancomycin 1 g IV on HD 3 times a week total 6 weeks until 04/16/18 Thank you for your consultation, will follow up with you. Briana Grissom MD Infectious Diseases Specialist [facility] ([facility] Subjective Date of service: 03/10/18 Principal diagnosis: ESRD Interval history: Feels ok, no complaints, tmax 100. Microbiology: Blood cultures: 03/03: Coagulase Neg Staph (1/4 bottles) 03/05 neg Wound cultures: 03/05 surgical biopsy cx: C. freundii, E faecalis. 03/05 buttock cx: K. pneumoniae, C. freundii, E. faecalis 03/05 Surgery: E. faecalis, K. pneumoniae, K. oxytoca, Citrobacter 03/05 anaerobic: NGTD Current Antimicrobials: Zosyn 03/03- Vancomcyin 03/03- Objective - Exam Narrative Exam: General appearance: Pt in NAD. Awake. Alert. Following commands. Eyes: anicteric sclerae, moist conjunctivae; PERRLA HENT: Atraumatic; oropharynx clear with moist mucous membranes and no mucosal ulcerations/no oral thrush; normal hard and soft palate. Normal external ears. Neck: Trachea midline; supple, no thyromegaly or lymphadenopathy Lungs: CTA, with normal respiratory effort and no intercostal retractions CV: S1,S2 Abdomen: Soft, non-tender; non-distended. G tube in place, site clean. Extremities: No peripheral edema or extremity lymphadenopathy. LUE AVF, thrill. Skin: Sacral decubitus ulcer with dressing. Neuro: Awake. Alert. Follows commands. Moves extremities. Lines: RUE midline - Constitutional Vitals: Vital Signs Temp Pulse Resp BP Pulse Ox 99.1 F 74 20 151/62 90 03/10/18 07:27 03/10/18 07:27 03/10/18 07:27 03/10/18 07:27 03/10/18 07:27 Temperature -Last 24 Hours Temperature 99.1 F Temperature 98.6 F Temperature 99.3 F Temperature 100.0 F - Labs CBC & Chem 7: 03/10/18 06:56 03/10/18 06:56 Labs: Abnormal lab results 03/09/18 03/09/18 03/09/18 Range/Units 10:29 10:29 17:05 WBC 13.9 H (4.5-11.0) K/mm3 RBC 3.04 L (3.65-5.03) M/mm3 Hgb 8.2 L (10.1-14.3) gm/dl Hct 26.2 L (30.3-42.9) % MCH 27 L (28-32) pg RDW 19.2 H (13.2-15.2) % Plt Count 617 H (140-440) K/mm3 Lymph % (Auto) 7.0 L (13.4-35.0) % Lymph # 1.0 L (1.2-5.4) K/mm3 Seg Neutrophils % 85.9 H (40.0-70.0) % Seg Neutrophils # 11.9 H (1.8-7.7) K/mm3 Sodium 133 L 134 L (137-145) mmol/L Chloride 97.3 L (98-107) mmol/L Carbon Dioxide 20 L 21 L (22-30) mmol/L BUN 29 H 30 H (7-17) mg/dL Creatinine 2.7 H 2.8 H (0.7-1.2) mg/dL POC Glucose (70-105) Calcium 7.2 L 7.5 L (8.4-10.2) mg/dL 03/09/18 03/10/18 03/10/18 Range/Units 21:54 06:56 06:56 WBC 12.6 H (4.5-11.0) K/mm3 RBC 3.25 L (3.65-5.03) M/mm3 Hgb 8.7 L (10.1-14.3) gm/dl Hct 28.2 L (30.3-42.9) % MCH 27 L (28-32) pg RDW 20.0 H (13.2-15.2) % Plt Count 731 H (140-440) K/mm3 Lymph % (Auto) 10.1 L (13.4-35.0) % Lymph # (1.2-5.4) K/mm3 Seg Neutrophils % 81.4 H (40.0-70.0) % Seg Neutrophils # 10.3 H (1.8-7.7) K/mm3 Sodium 134 L (137-145) mmol/L Chloride (98-107) mmol/L Carbon Dioxide 19 L (22-30) mmol/L BUN 30 H (7-17) mg/dL Creatinine 3.0 H (0.7-1.2) mg/dL POC Glucose 155 H (70-105) Calcium 7.3 L (8.4-10.2) mg/dL 03/10/18 Range/Units 07:29 WBC (4.5-11.0) K/mm3 RBC (3.65-5.03) M/mm3 Hgb (10.1-14.3) gm/dl Hct (30.3-42.9) % MCH (28-32) pg RDW (13.2-15.2) % Plt Count (140-440) K/mm3 Lymph % (Auto) (13.4-35.0) % Lymph # (1.2-5.4) K/mm3 Seg Neutrophils % (40.0-70.0) % Seg Neutrophils # (1.8-7.7) K/mm3 Sodium (137-145) mmol/L Chloride (98-107) mmol/L Carbon Dioxide (22-30) mmol/L BUN (7-17) mg/dL Creatinine (0.7-1.2) mg/dL POC Glucose 69 L (70-105) Calcium (8.4-10.2) mg/dL
[2018-03-10] MEDS ORDERED: ATIVAN IV STA (13:53)
--- NOTE | 2018-03-10 13:53 | Progress Note ---
Assessment and Plan Severe sepsis: Sacral Decubitus Ulcer: -ID on board, on zosyn -Surgery on board, s/p surgical debridement of sacral wound on 03/05/18 ESRD on HD: -HD today. -Assess need for HD on daily basis -Renally dose meds -Strict intake and output -Continue supportive therapy Anemia in CKD: -Epogen with HD -No indication for transfusion Swelling in RUE - picc line noted, will order venous doppler Plan d/w HD RN. Antoine Harden MD [phone] Subjective Date of service: 03/10/18 Principal diagnosis: ESRD Interval history: Remains confused. Seen on HD. Objective - Exam Narrative Exam: General appearance: well-developed, well-nourished EENT: ATNC, PERRL, mucous membranes moist Neck: no JVD, no carotid bruit Respiratory: Present: Clear to Ascultation. Absent: Rales, Ronchi Cardiology: regular, S1S2 Gastrointestinal: normoactive bowel sounds, no tenderness, no distended Integumentary: no rash, warm and dry Neurologic: no focal deficit, no asterixis, alert and oriented x3 Musculoskeletal: other (trace pitting edema in BLE, swelling in RUE) - Vital Signs Vital signs: Vital Signs - 12hr 03/10/18 03/10/18 03/10/18 02:25 07:27 10:00 Temperature 98.6 F 99.1 F Pulse Rate 79 74 Pulse Rate [ 74 Right Radial] Respiratory 20 20 Rate Blood Pressure 151/60 Blood Pressure 151/62 [Right] O2 Sat by Pulse 95 90 Oximetry 03/10/18 11:48 Temperature 98.2 F Pulse Rate Pulse Rate [ Right Radial] Respiratory Rate Blood Pressure Blood Pressure [Right] O2 Sat by Pulse Oximetry - Lab 03/10/18 06:56 03/10/18 06:56 Most recent lab results Calcium 7.3 mg/dL (8.4-10.2) L 03/10/18 06:56
[2018-03-10] MEDS: PROCRIT IV PRN (14:10)
--- NOTE | 2018-03-10 14:12 | Progress Note ---
Assessment and Plan Pt currently in dialysis. doing well as per RN no wd care note noted. will discuss with ET nurse Selected Entries 03/09/18 03/10/18 07:15 07:27 Temperature 99.0 F 99.1 F Pulse Rate 77 74 Respiratory 18 20 Rate Blood Pressure 171/76 Blood Pressure 151/62 [Right] Laboratory Tests 03/10/18 03/10/18 06:56 06:56 WBC 12.6 H Hgb 8.7 L Hct 28.2 L Sodium 134 L Potassium 4.6 Chloride 98.5 Carbon Dioxide 19 L BUN 30 H Creatinine 3.0 H Objective Vital Signs - 12hr 03/10/18 03/10/18 03/10/18 02:25 07:27 10:00 Temperature 98.6 F 99.1 F Pulse Rate 79 74 Pulse Rate [ 74 Right Radial] Respiratory 20 20 Rate Blood Pressure 151/60 Blood Pressure 151/62 [Right] O2 Sat by Pulse 95 90 Oximetry 03/10/18 11:48 Temperature 98.2 F Pulse Rate Pulse Rate [ Right Radial] Respiratory Rate Blood Pressure Blood Pressure [Right] O2 Sat by Pulse Oximetry - Labs 03/10/18 06:56 03/10/18 06:56 Diabetes panel 03/09/18 03/10/18 Range/Units 17:05 06:56 Sodium 134 L 134 L (137-145) mmol/L Potassium 4.5 4.6 (3.6-5.0) mmol/L Chloride 98.2 98.5 (98-107) mmol/L Carbon Dioxide 21 L 19 L (22-30) mmol/L BUN 30 H 30 H (7-17) mg/dL Creatinine 2.8 H 3.0 H (0.7-1.2) mg/dL Glucose 93 73 (65-100) mg/dL Calcium 7.5 L 7.3 L (8.4-10.2) mg/dL Calcium panel 03/09/18 03/10/18 Range/Units 17:05 06:56 Calcium 7.5 L 7.3 L (8.4-10.2) mg/dL Pituitary panel 03/09/18 03/10/18 Range/Units 17:05 06:56 Sodium 134 L 134 L (137-145) mmol/L Potassium 4.5 4.6 (3.6-5.0) mmol/L Chloride 98.2 98.5 (98-107) mmol/L Carbon Dioxide 21 L 19 L (22-30) mmol/L BUN 30 H 30 H (7-17) mg/dL Creatinine 2.8 H 3.0 H (0.7-1.2) mg/dL Glucose 93 73 (65-100) mg/dL Calcium 7.5 L 7.3 L (8.4-10.2) mg/dL Adrenal panel 03/09/18 03/10/18 Range/Units 17:05 06:56 Sodium 134 L 134 L (137-145) mmol/L Potassium 4.5 4.6 (3.6-5.0) mmol/L Chloride 98.2 98.5 (98-107) mmol/L Carbon Dioxide 21 L 19 L (22-30) mmol/L BUN 30 H 30 H (7-17) mg/dL Creatinine 2.8 H 3.0 H (0.7-1.2) mg/dL Glucose 93 73 (65-100) mg/dL Calcium 7.5 L 7.3 L (8.4-10.2) mg/dL
[2018-03-10] MEDS: DAKIN'S HALF STRENGTH TP SCH ×2 (19:01→22:06)
[2018-03-11] MEDS: MORPHINE IV PRN ×4 (03:11→23:05)
[2018-03-11] MEDS: ZOSYN/NS 2.25 GM/50ML 2.25 GM/50 ML BAG IV SCH ×3 (05:20→23:03)
--- NOTE | 2018-03-11 08:17 | Progress Note ---
Assessment and Plan Assessment and plan: --Stage IV Sacral decubitus ulcer: present on admission s/p surgical debridement, 03/05/2018 on Vanco Zosyn total 4 weeks per ID Patient needs PICC or midline for long-term antibiotics --Sepsis: Secondary to infected decubitus ulcer and bacteremia, on antibiotics --Metabolic Encephalopathy acute on chronic; back to baseline due to sepsis, Continue IV fluids and IV antibiotics -- ESRD on hemodialysis;HD per scheduled, nephrology following --Hypertension; moderate control continue current antihypertensives and when necessary medications --Moderate to severe protein calorie Malnutrition ; present on admission dietary supplements supportive care --Anemia of chronic disease: Post 1 unit PRBC transfusion, Hb 8.7 Epogen during HD as needed --Hyponatremia: mild improvement , closely monitor --Dysphagia; Patient had modified barium swallow study, mechanical soft per speech --DVT prophylaxis;heparin 5000 every 12h --Physical therapy, occupational therapy as tolerated --Full code status --DC planning. per Case management when medically stable Consults and recommendations noted and appreciated History Interval history: Patient seen and examined medical records reviewed No new events reported by the nursing Patient is comfortable Not in acute distress Vital signs reviewed Hospitalist Physical - Constitutional Vitals: Temp Pulse Resp BP Pulse Ox 98.6 F 82 20 182/72 94 03/11/18 07:49 03/11/18 07:49 03/11/18 07:49 03/11/18 07:49 03/11/18 07:49 General appearance: Present: no acute distress, mild distress, well-nourished, other (involuntary jaw movements/possible TD) - EENT Eyes: Present: PERRL, EOM intact - Neck Neck: Present: supple, normal ROM - Respiratory Respiratory effort: normal Respiratory: negative: rales, rhonchi, wheezing - Cardiovascular Rhythm: regular Heart Sounds: Present: S1 & S2 - Extremities Extremities: no ischemia, No edema - Abdominal General gastrointestinal: soft, non-tender, non-distended, normal bowel sounds - Integumentary Integumentary: Present: clear, warm (stage IV sacral decubitus ulcer, ) - Psychiatric Psychiatric: cooperative, other (responding to simple questions) - Neurologic Neurologic: moves all extremities, other (involuntary movements possible TD) Results - Labs CBC & Chem 7: 03/10/18 06:56 03/10/18 06:56 Labs: Laboratory Last Values WBC 12.6 K/mm3 (4.5-11.0) H 03/10/18 06:56 RBC 3.25 M/mm3 (3.65-5.03) L 03/10/18 06:56 Hgb 8.7 gm/dl (10.1-14.3) L 03/10/18 06:56 Hct 28.2 % (30.3-42.9) L 03/10/18 06:56 MCV 87 fl (79-97) 03/10/18 06:56 MCH 27 pg (28-32) L 03/10/18 06:56 MCHC 31 % (30-34) 03/10/18 06:56 RDW 20.0 % (13.2-15.2) H 03/10/18 06:56 Plt Count 731 K/mm3 (140-440) H 03/10/18 06:56 Lymph % (Auto) 10.1 % (13.4-35.0) L 03/10/18 06:56 [place] % (Auto) 6.2 % (0.0-7.3) 03/10/18 06:56 Eos % (Auto) 1.7 % (0.0-4.3) 03/10/18 06:56 Baso % (Auto) 0.6 % (0.0-1.8) 03/10/18 06:56 Lymph # 1.3 K/mm3 (1.2-5.4) 03/10/18 06:56 [place] # 0.8 K/mm3 (0.0-0.8) 03/10/18 06:56 Eos # 0.2 K/mm3 (0.0-0.4) 03/10/18 06:56 Baso # 0.1 K/mm3 (0.0-0.1) 03/10/18 06:56 Add Manual Diff Complete 03/06/18 07:16 Total Counted 100 03/06/18 07:16 Seg Neutrophils % 81.4 % (40.0-70.0) H 03/10/18 06:56 Seg Neuts % (Manual) 97.0 % (40.0-70.0) H 03/06/18 07:16 Band Neutrophils % 0 % 03/06/18 07:16 Lymphocytes % (Manual) 2.0 % (13.4-35.0) L 03/06/18 07:16 Reactive Lymphs % (Man) 0 % 03/06/18 07:16 Monocytes % (Manual) 0 % (0.0-7.3) 03/06/18 07:16 Eosinophils % (Manual) 1.0 % (0.0-4.3) 03/06/18 07:16 Basophils % (Manual) 0 % (0.0-1.8) 03/06/18 07:16 Metamyelocytes % 0 % 03/06/18 07:16 Myelocytes % 0 % 03/06/18 07:16 Promyelocytes % 0 % 03/06/18 07:16 Blast Cells % 0 % 03/06/18 07:16 Nucleated RBC % Not Reportable 03/06/18 07:16 Seg Neutrophils # 10.3 K/mm3 (1.8-7.7) H 03/10/18 06:56 Seg Neutrophils # Man 16.6 K/mm3 (1.8-7.7) H 03/06/18 07:16 Band Neutrophils # 0.0 K/mm3 03/06/18 07:16 Lymphocytes # (Manual) 0.3 K/mm3 (1.2-5.4) L 03/06/18 07:16 Abs React Lymphs (Man) 0.0 K/mm3 03/06/18 07:16 Monocytes # (Manual) 0.0 K/mm3 (0.0-0.8) 03/06/18 07:16 Eosinophils # (Manual) 0.2 K/mm3 (0.0-0.4) 03/06/18 07:16 Basophils # (Manual) 0.0 K/mm3 (0.0-0.1) 03/06/18 07:16 Metamyelocytes # 0.0 K/mm3 03/06/18 07:16 Myelocytes # 0.0 K/mm3 03/06/18 07:16 Promyelocytes # 0.0 K/mm3 03/06/18 07:16 Blast Cells # 0.0 K/mm3 03/06/18 07:16 WBC Morphology Not Reportable 03/06/18 07:16 Hypersegmented Neuts Not Reportable 03/06/18 07:16 Hyposegmented Neuts Not Reportable 03/06/18 07:16 Hypogranular Neuts Not Reportable 03/06/18 07:16 Smudge Cells Not Reportable 03/06/18 07:16 Toxic Granulation Not Reportable 03/06/18 07:16 Toxic Vacuolation Not Reportable 03/06/18 07:16 Dohle Bodies Not Reportable 03/06/18 07:16 Pelger-Huet Anomaly Not Reportable 03/06/18 07:16 Misti Rods Not Reportable 03/06/18 07:16 Platelet Estimate Cons 03/06/18 07:16 Clumped Platelets Not Reportable 03/06/18 07:16 Plt Clumps, EDTA Not Reportable 03/06/18 07:16 Large Platelets Not Reportable 03/06/18 07:16 Giant Platelets Not Reportable 03/06/18 07:16 Platelet Satelliting Not Reportable 03/06/18 07:16 Plt Morphology Comment Not Reportable 03/06/18 07:16 RBC Morphology Not Reportable 03/06/18 07:16 Dimorphic RBCs Not Reportable 03/06/18 07:16 Polychromasia Not Reportable 03/06/18 07:16 Hypochromasia 1+ 03/06/18 07:16 Poikilocytosis Not Reportable 03/06/18 07:16 Anisocytosis 1+ 03/06/18 07:16 Microcytosis Not Reportable 03/06/18 07:16 Macrocytosis Not Reportable 03/06/18 07:16 Spherocytes Not Reportable 03/06/18 07:16 Pappenheimer Bodies Not Reportable 03/06/18 07:16 Sickle Cells Not Reportable 03/06/18 07:16 Target Cells Not Reportable 03/06/18 07:16 Tear Drop Cells Not Reportable 03/06/18 07:16 Ovalocytes Not Reportable 03/06/18 07:16 Helmet Cells Not Reportable 03/06/18 07:16 [place] Bodies Not Reportable 03/06/18 07:16 [place] Rings Not Reportable 03/06/18 07:16 [place] Cells Not Reportable 03/06/18 07:16 Bite Cells Not Reportable 03/06/18 07:16 Crenated Cell Not Reportable 03/06/18 07:16 Elliptocytes Not Reportable 03/06/18 07:16 Acanthocytes (Spur) Not Reportable 03/06/18 07:16 Rouleaux Not Reportable 03/06/18 07:16 Hemoglobin C Crystals Not Reportable 03/06/18 07:16 Schistocytes Not Reportable 03/06/18 07:16 Malaria parasites Not Reportable 03/06/18 07:16 ESR > 140.0 mm/Hr (0-20) 03/05/18 10:50 Nickolas Bodies Not Reportable 03/06/18 07:16 Hem Pathologist Commnt No 03/06/18 07:16 PT 14.7 Sec. (12.2-14.9) 03/03/18 11:45 INR 1.09 (0.87-1.13) 03/03/18 11:45 APTT 30.3 Sec. (24.2-36.6) 03/03/18 11:25 Sodium 134 mmol/L (137-145) L 03/10/18 06:56 Potassium 4.6 mmol/L (3.6-5.0) 03/10/18 06:56 Chloride 98.5 mmol/L (98-107) 03/10/18 06:56 Carbon Dioxide 19 mmol/L (22-30) L 03/10/18 06:56 Anion Gap 21 mmol/L 03/10/18 06:56 BUN 30 mg/dL (7-17) H 03/10/18 06:56 Creatinine 3.0 mg/dL (0.7-1.2) H 03/10/18 06:56 Estimated GFR 19 ml/min 03/10/18 06:56 BUN/Creatinine Ratio 10 % 03/10/18 06:56 Glucose 73 mg/dL (65-100) 03/10/18 06:56 POC Glucose 91 (70-105) 03/10/18 21:50 Hemoglobin A1c 5.8 % (4-6) 03/03/18 16:24 Lactic Acid 1.60 mmol/L (0.7-2.0) 03/03/18 15:26 Calcium 7.3 mg/dL (8.4-10.2) L 03/10/18 06:56 Total Bilirubin 1.20 mg/dL (0.1-1.2) 03/07/18 05:38 Direct Bilirubin 0.8 mg/dL (0-0.2) H 03/07/18 05:38 Indirect Bilirubin 0.4 mg/dL 03/07/18 05:38 AST 25 units/L (5-40) 03/07/18 05:38 ALT 22 units/L (7-56) 03/07/18 05:38 Alkaline Phosphatase 490 units/L (35-129) H 03/07/18 05:38 Total Creatine Kinase 173 units/L (30-135) H 03/03/18 11:45 C-Reactive Protein 22.60 mg/dL (0.00-1.30) H 03/05/18 10:50 Total Protein 5.9 g/dL (6.3-8.2) L 03/07/18 05:38 Albumin 2.0 g/dL (3.9-5) L 03/07/18 05:38 Albumin/Globulin Ratio 0.5 % 03/07/18 05:38 Urine Color Iza (Yellow) 03/04/18 00:17 Urine Turbidity Hazy (Clear) 03/04/18 00:17 Urine pH 7.0 (5.0-7.0) 03/04/18 00:17 Ur Specific [place] 1.015 (1.003-1.030) 03/04/18 00:17 Urine Protein 100 mg/dl mg/dL (Negative) 03/04/18 00:17 Urine Glucose (UA) 150 mg/dL (Negative) 03/04/18 00:17 Urine Ketones Neg mg/dL (Negative) 03/04/18 00:17 Urine Blood Sm (Negative) 03/04/18 00:17 Urine Nitrite Neg (Negative) 03/04/18 00:17 Urine Bilirubin Neg (Negative) 03/04/18 00:17 Urine Urobilinogen < 2.0 mg/dL (<2.0) 03/04/18 00:17 Ur Leukocyte Esterase Mod (Negative) 03/04/18 00:17 Urine WBC (Auto) 117.0 /HPF (0.0-6.0) H 03/04/18 00:17 Urine RBC (Auto) 22.0 /HPF (0.0-6.0) 03/04/18 00:17 U Epithel Cells (Auto) 2.0 /HPF (0-13.0) 03/04/18 00:17 Urine Bacteria (Auto) 2+ /HPF (Negative) 03/04/18 00:17 Urine WBC Clumps 2+ /HPF 03/04/18 00:17 Urine Mucus Few /HPF 03/04/18 00:17 Random Vancomycin 25.4 ug/mL (0-40.0) 03/09/18 10:29 Hepatitis A IgM Ab Non-reactive (NonReactive) 03/04/18 15:35 Hep Bs Antigen Non-reactive (Negative) 03/04/18 15:35 Hep B Core IgM Ab Non-reactive (NonReactive) 03/04/18 15:35 Hepatitis C Antibody Non-reactive (NonReactive) 03/04/18 15:35 Blood Type B POSITIVE 03/04/18 15:37 Antibody Screen Negative 03/04/18 15:37 Crossmatch See Detail 03/04/18 15:37
[2018-03-11] MEDS ORDERED: APRESOLINE IV NR (08:44)
[2018-03-11] MEDS: SODIUM CHLORIDE FLUSH SYRINGE 10 ML IV SCH ×2 (09:24→23:04)
--- NOTE | 2018-03-11 09:58 | Progress Note ---
Assessment and Plan Assessment: 1) Sepsis: fever resolved, still leukocytosis but better. Most likely due to infected sacral decubitus ulcer. 2) Infected sacral decubitus ulcer. -s/p surgical debridement 03/05. As per operative report debridement down to bone and purulence noted. Wound cx with Polymicrobial growth (E. faecalis, K. oxytoca, K. pneumoniae, C. freundii) -ESR >140, CRP 22.60 3) Cogulase Neg Staph in 1/4 blood cultures bottles on 03/03. Contaminant. Repeat BCx 03/05 NGTD. 4) Elevated liver function tests. Improved. 5) Encephalopathy. Improved. 6) ESRD on HD. Plan: -Continue vancomycin and zosyn (D9). -upon discharge will do ciprofloxacin 500 mg PO qday (to cover K. oxytoca, K. pneumoniae, C. freundii) and vancomycin 1 g IV on HD 3 times a week (to cover E. faecalis) total 6 weeks until 04/16/18 -ID clinic f/u in 3 weeks 04/03/18 Thank you for your consultation, will follow up with you. Briana Grissom MD Infectious Diseases Specialist [facility] Subjective Date of service: 03/11/18 Principal diagnosis: ESRD Interval history: Feels ok, no complaints, tmax 99.7. Microbiology: Blood cultures: 03/03: Coagulase Neg Staph (1/4 bottles) 03/05 neg Wound cultures: 03/05 surgical biopsy cx: C. freundii, E faecalis. 03/05 buttock cx: K. pneumoniae, C. freundii, E. faecalis 03/05 Surgery: E. faecalis, K. pneumoniae, K. oxytoca, Citrobacter 03/05 anaerobic: NGTD Current Antimicrobials: Zosyn 03/03- Vancomcyin 03/03- Objective - Exam Narrative Exam: General appearance: Pt in NAD. Awake. Alert. Following commands. Eyes: anicteric sclerae, moist conjunctivae; PERRLA HENT: Atraumatic; oropharynx clear with moist mucous membranes and no mucosal ulcerations/no oral thrush; normal hard and soft palate. Normal external ears. Neck: Trachea midline; supple, no thyromegaly or lymphadenopathy Lungs: CTA, with normal respiratory effort and no intercostal retractions CV: S1,S2 Abdomen: Soft, non-tender; non-distended. G tube in place, site clean. Extremities: No peripheral edema or extremity lymphadenopathy. LUE AVF, thrill. Skin: Sacral decubitus no examined today Neuro: Awake. Alert. Follows commands. Moves extremities. Lines: RUE midline - Constitutional Vitals: Vital Signs Temp Pulse Resp BP Pulse Ox 98.6 F 82 20 182/72 94 03/11/18 07:49 03/11/18 09:23 03/11/18 07:49 03/11/18 09:23 03/11/18 07:49 Temperature -Last 24 Hours Temperature 98.6 F Temperature 99.7 F Temperature 99.7 F Temperature 98.8 F Temperature 98.0 F Temperature 98.2 F - Labs CBC & Chem 7: 03/10/18 06:56 03/10/18 06:56
[2018-03-11] MEDS: DAKIN'S HALF STRENGTH TP SCH ×2 (10:00→23:04)
--- NOTE | 2018-03-11 12:34 | Progress Note ---
Assessment and Plan Pt status quo reviewed wd with ET nurse still some areas of necrosis and purulence recurrent wet gangrene will discuss with family to schedule for f/u debridement Objective Vital Signs - 12hr 03/11/18 03/11/18 03/11/18 02:01 07:49 09:23 Temperature 99.7 F H 98.6 F Pulse Rate 82 82 Respiratory 18 20 Rate Blood Pressure 182/68 182/72 Blood Pressure 182/72 [Right] O2 Sat by Pulse 94 Oximetry - Labs 03/10/18 06:56 03/10/18 06:56
--- NOTE | 2018-03-11 13:21 | Progress Note ---
Assessment and Plan Severe sepsis: Sacral Decubitus Ulcer: -ID on board, on zosyn -Surgery on board, s/p surgical debridement of sacral wound on 03/05/18 ESRD on HD: -s/p HD yesterday, no HD today. -Assess need for HD on daily basis -Renally dose meds -Strict intake and output -Continue supportive therapy Anemia in CKD: -Epogen with HD -No indication for transfusion Swelling in RUE - picc line noted, venous doppler was ordered. Antoine Harden MD [phone] Subjective Principal diagnosis: ESRD Interval history: Remains confused. s/p HD yesterday. Objective - Exam Narrative Exam: General appearance: well-developed, well-nourished EENT: ATNC, PERRL, mucous membranes moist Neck: no JVD, no carotid bruit Respiratory: Present: Clear to Ascultation. Absent: Rales, Ronchi Cardiology: regular, S1S2 Gastrointestinal: normoactive bowel sounds, no tenderness, no distended Integumentary: no rash, warm and dry Neurologic: no focal deficit, no asterixis, alert and oriented x3 Musculoskeletal: other (trace pitting edema in BLE, swelling in RUE) - Vital Signs Vital signs: Vital Signs - 12hr 03/11/18 03/11/18 03/11/18 02:01 07:49 09:23 Temperature 99.7 F H 98.6 F Pulse Rate 82 82 Respiratory 18 20 Rate Blood Pressure 182/68 182/72 Blood Pressure 182/72 [Right] O2 Sat by Pulse 94 Oximetry - Lab 03/10/18 06:56 03/10/18 06:56 Most recent lab results Calcium 7.3 mg/dL (8.4-10.2) L 03/10/18 06:56
[2018-03-11 15:17] LABS: Calcium 7.7 mg/dL (8.4-10.2)
[2018-03-11] MEDS: NACL 0.9% 1000 ML 1,000 ML IV SCH (16:01)
--- NOTE | 2018-03-11 17:46 | Vascular Lab Report ---
RIGHT UPPER EXTREMITY VENOUS DUPLEX: REASON FOR EXAM: Pain and swelling of the right upper extremity COMMENTS ON THE RIGHT: All arm veins visualized are freely compressible without evidence of internal echogenicity. The subclavian and internal jugular veins are free of thrombus. Flow is spontaneous and phasic throughout. COMMENTS ON THE LEFT: A limited study of the jugular and subclavian veins shows no evidence of thrombus. IMPRESSION: No evidence of acute or chronic deep venous thrombosis in the right upper extremity.
[2018-03-12] MEDS: MORPHINE IV PRN ×2 (05:22→23:41)
[2018-03-12] MEDS: ZOSYN/NS 2.25 GM/50ML 2.25 GM/50 ML BAG IV SCH ×2 (05:25→13:56)
[2018-03-12] MEDS: NACL 0.9% 1000 ML 1,000 ML IV SCH (05:29)
[2018-03-12 05:45] LABS: Basophils # (Auto) 0.2 K/mm3 (0.0-0.1); Basophils % (Auto) 1.1 % (0.0-1.8); Eosinophils # (Auto) 0.3 K/mm3 (0.0-0.4); Eosinophils % (Auto) 1.9 % (0.0-4.3); Hemoglobin 8.3 gm/dl (10.1-14.3); Lymphocytes # (Auto) 2.4 K/mm3 (1.2-5.4); Mean Corpuscular HGB Conc 31 % (30-34); Mean Corpuscular Hemoglobin 27 pg (28-32); Mean Corpuscular Volume 87 fl (79-97); Monocytes # (Auto) 0.9 K/mm3 (0.0-0.8); Monocytes % (Auto) 6.5 % (0.0-7.3); Platelet Count 522 K/mm3 (140-440); Red Blood Count 3.09 M/mm3 (3.65-5.03)
[2018-03-12 05:48] LABS: Red Cell Distribution Width 20.7 % (13.2-15.2)
[2018-03-12 05:50] LABS: Calcium 7.6 mg/dL (8.4-10.2)
--- NOTE | 2018-03-12 08:56 | Progress Note ---
Assessment and Plan Assessment: 1) Sepsis: fever resolved, still leukocytosis. Most likely due to infected sacral decubitus ulcer. 2) Infected sacral decubitus ulcer. -s/p surgical debridement 03/05. As per operative report debridement down to bone and purulence noted. Wound cx with Polymicrobial growth (E. faecalis, K. oxytoca, K. pneumoniae, C. freundii) -ESR >140, CRP 22.60 3) Cogulase Neg Staph in 1/4 blood cultures bottles on 03/03. Contaminant. Repeat BCx 03/05 NGTD. 4) Elevated liver function tests. Improved. 5) Encephalopathy. Improved. 6) ESRD on HD. Plan: -to the OR for further debridement tomorrow-appreciate Dr Pimentel' input -Continue vancomycin and zosyn (D10). -upon discharge will do ciprofloxacin 500 mg PO qday (to cover K. oxytoca, K. pneumoniae, C. freundii) and vancomycin 1 g IV on HD 3 times a week (to cover E. faecalis) total 6 weeks until 04/16/18 -ID clinic f/u in 3 weeks 04/03/18 I will be rounding on 03/14 Thank you for your consultation, will follow up with you. Briana Grissom MD Infectious Diseases Specialist [facility] Subjective Date of service: 03/12/18 Principal diagnosis: ESRD Interval history: Feels ok, no complaints, tmax 99.8. Microbiology: Blood cultures: 03/03: Coagulase Neg Staph (1/4 bottles) 03/05 neg Wound cultures: 03/05 surgical biopsy cx: C. freundii, E faecalis. 03/05 buttock cx: K. pneumoniae, C. freundii, E. faecalis 03/05 Surgery: E. faecalis, K. pneumoniae, K. oxytoca, Citrobacter 03/05 anaerobic: NGTD Current Antimicrobials: Zosyn 03/03- Vancomcyin 03/03- Objective - Exam Narrative Exam: General appearance:Awake. Alert. Following commands. Eyes: anicteric sclerae, moist conjunctivae; PERRLA HENT: Atraumatic; oropharynx clear with moist mucous membranes and no mucosal ulcerations/no oral thrush; normal hard and soft palate. Normal external ears. Neck: Trachea midline; supple, no thyromegaly or lymphadenopathy Lungs: CTA, with normal respiratory effort and no intercostal retractions CV: S1,S2 Abdomen: Soft, non-tender; non-distended. G tube in place, site clean. Extremities: No peripheral edema or extremity lymphadenopathy. LUE AVF, thrill. Skin: Sacral decubitus no examined today Neuro: Awake. Alert. Follows commands. Moves extremities. Lines: RUE midline - Constitutional Vitals: Vital Signs Temp Pulse Resp BP Pulse Ox 97.9 F 83 20 143/62 97 03/12/18 02:02 03/11/18 13:57 03/12/18 05:22 03/12/18 02:02 03/11/18 13:57 Temperature -Last 24 Hours Temperature 97.9 F Temperature 99.8 F Temperature 99.3 F - Labs CBC & Chem 7: 03/12/18 05:13 03/12/18 05:13 Labs: Abnormal lab results 03/11/18 03/11/18 03/12/18 Range/Units 14:49 22:06 05:13 WBC 14.2 H (4.5-11.0) K/mm3 RBC 3.09 L (3.65-5.03) M/mm3 Hgb 8.3 L (10.1-14.3) gm/dl Hct 27.0 L (30.3-42.9) % MCH 27 L (28-32) pg RDW 20.7 H (13.2-15.2) % Plt Count 522 H (140-440) K/mm3 [place] # 0.9 H (0.0-0.8) K/mm3 Baso # 0.2 H (0.0-0.1) K/mm3 Seg Neutrophils % 73.5 H (40.0-70.0) % Seg Neutrophils # 10.5 H (1.8-7.7) K/mm3 Sodium 132 L (137-145) mmol/L Carbon Dioxide 18 L (22-30) mmol/L BUN 21 H (7-17) mg/dL Creatinine 2.6 H (0.7-1.2) mg/dL POC Glucose 131 H (70-105) Calcium 7.7 L (8.4-10.2) mg/dL Magnesium (1.7-2.3) mg/dL 03/12/18 Range/Units 05:13 WBC (4.5-11.0) K/mm3 RBC (3.65-5.03) M/mm3 Hgb (10.1-14.3) gm/dl Hct (30.3-42.9) % MCH (28-32) pg RDW (13.2-15.2) % Plt Count (140-440) K/mm3 [place] # (0.0-0.8) K/mm3 Baso # (0.0-0.1) K/mm3 Seg Neutrophils % (40.0-70.0) % Seg Neutrophils # (1.8-7.7) K/mm3 Sodium (137-145) mmol/L Carbon Dioxide 18 L (22-30) mmol/L BUN 38 H (7-17) mg/dL Creatinine 2.9 H (0.7-1.2) mg/dL POC Glucose (70-105) Calcium 7.6 L (8.4-10.2) mg/dL Magnesium 1.40 L (1.7-2.3) mg/dL
[2018-03-12] MEDS: DAKIN'S HALF STRENGTH TP SCH (10:15)
[2018-03-12] MEDS ORDERED: MAGNESIUM SULFATE 2GM/50ML 2 GM/50 ML BAG IV ONE (11:30)
[2018-03-12] MEDS: SODIUM CHLORIDE FLUSH SYRINGE 10 ML IV SCH (11:45)
--- NOTE | 2018-03-12 14:13 | Progress Note ---
Assessment and Plan Pt status quo. sleeping for redebridement of infected sacral decubitus ulcer in am Selected Entries 03/12/18 03/12/18 02:02 10:00 Temperature 97.9 F Pulse Rate [ 72 Right Radial] Respiratory 18 Rate Blood Pressure 143/62 Laboratory Tests 03/12/18 03/12/18 05:13 05:13 WBC 14.2 H Hgb 8.3 L Hct 27.0 L Sodium 138 Potassium 4.8 Chloride 102.8 Carbon Dioxide 18 L BUN 38 H Creatinine 2.9 H Objective Vital Signs - 12hr 03/12/18 03/12/18 05:22 10:00 Pulse Rate [ 72 Right Radial] Respiratory 20 Rate - Labs 03/12/18 05:13 03/12/18 05:13 Diabetes panel 03/11/18 03/12/18 Range/Units 14:49 05:13 Sodium 132 L 138 (137-145) mmol/L Potassium 4.1 4.8 (3.6-5.0) mmol/L Chloride 99.2 102.8 (98-107) mmol/L Carbon Dioxide 18 L 18 L (22-30) mmol/L BUN 21 H 38 H (7-17) mg/dL Creatinine 2.6 H 2.9 H (0.7-1.2) mg/dL Glucose 88 95 (65-100) mg/dL Calcium 7.7 L 7.6 L (8.4-10.2) mg/dL Calcium panel 03/11/18 03/12/18 Range/Units 14:49 05:13 Calcium 7.7 L 7.6 L (8.4-10.2) mg/dL Pituitary panel 03/11/18 03/12/18 Range/Units 14:49 05:13 Sodium 132 L 138 (137-145) mmol/L Potassium 4.1 4.8 (3.6-5.0) mmol/L Chloride 99.2 102.8 (98-107) mmol/L Carbon Dioxide 18 L 18 L (22-30) mmol/L BUN 21 H 38 H (7-17) mg/dL Creatinine 2.6 H 2.9 H (0.7-1.2) mg/dL Glucose 88 95 (65-100) mg/dL Calcium 7.7 L 7.6 L (8.4-10.2) mg/dL Adrenal panel 03/11/18 03/12/18 Range/Units 14:49 05:13 Sodium 132 L 138 (137-145) mmol/L Potassium 4.1 4.8 (3.6-5.0) mmol/L Chloride 99.2 102.8 (98-107) mmol/L Carbon Dioxide 18 L 18 L (22-30) mmol/L BUN 21 H 38 H (7-17) mg/dL Creatinine 2.6 H 2.9 H (0.7-1.2) mg/dL Glucose 88 95 (65-100) mg/dL Calcium 7.7 L 7.6 L (8.4-10.2) mg/dL
[2018-03-12] MEDS ORDERED: NACL 0.9% 100 ML IV PRN ×2 (14:45→14:56)
--- NOTE | 2018-03-12 14:51 | Progress Note ---
Assessment and Plan Severe sepsis: Sacral Decubitus Ulcer: -ID on board, on Abx -Surgery on board, s/p surgical debridement of sacral wound on 03/05/18 ESRD on HD: -HD today. -Assess need for HD on daily basis -Renally dose meds -Strict intake and output -Continue supportive therapy Anemia in CKD: -Epogen with HD -No indication for transfusion Swelling in RUE - picc line noted, venous doppler was ordered. -ve for DVT. Antoine Harden MD [phone] Subjective Date of service: 03/12/18 Principal diagnosis: ESRD Interval history: HD today. Objective - Exam Narrative Exam: General appearance: well-developed, well-nourished EENT: ATNC, PERRL, mucous membranes moist Neck: no JVD, no carotid bruit Respiratory: Present: Clear to Ascultation. Absent: Rales, Ronchi Cardiology: regular, S1S2 Gastrointestinal: normoactive bowel sounds, no tenderness, no distended Integumentary: no rash, warm and dry Neurologic: no focal deficit, no asterixis, alert and oriented x3 Musculoskeletal: other (trace pitting edema in BLE, swelling in RUE) - Vital Signs Vital signs: Vital Signs - 12hr 03/12/18 03/12/18 05:22 10:00 Pulse Rate [ 72 Right Radial] Respiratory 20 Rate - Lab 03/12/18 05:13 03/12/18 05:13 Most recent lab results Calcium 7.6 mg/dL (8.4-10.2) L 03/12/18 05:13 Magnesium 1.40 mg/dL (1.7-2.3) L 03/12/18 05:13
--- NOTE | 2018-03-12 16:43 | Progress Note ---
Assessment and Plan Assessment and plan: --Metabolic Encephalopathy acute on chronic; back to baseline due to sepsis, Continue IV fluids and IV antibiotics --Stage IV Sacral decubitus ulcer: present on admission s/p surgical debridement, 03/05/2018 on Vanco Zosyn total 4 weeks per ID Patient needs PICC or midline for long-term antibiotics --Sepsis: Secondary to infected decubitus ulcer and bacteremia, on antibiotics -- ESRD on hemodialysis;HD per scheduled, nephrology following --Hypertension; moderate control continue current antihypertensives and when necessary medications --Moderate to severe protein calorie Malnutrition ; present on admission dietary supplements supportive care --Anemia of chronic disease: Post 1 unit PRBC transfusion, Hb 8.3 Epogen during HD as needed --Hyponatremia: mild improvement , closely monitor --Dysphagia; Patient had modified barium swallow study, mechanical soft per speech --DVT prophylaxis;heparin 5000 every 12h --Physical therapy, occupational therapy as tolerated --Full code status --DC planning. per Case management when medically stable Case reviewed with the patient's nurse and case management History Interval history: Patient seen and examined medical records reviewed Patient feels better no new complaints Hospitalist Physical - Constitutional Vitals: Temp Pulse Resp BP Pulse Ox 97.9 F 87 18 93/52 100 03/12/18 14:38 03/12/18 14:38 03/12/18 14:38 03/12/18 14:38 03/12/18 14:38 General appearance: Present: no acute distress, well-nourished, other ( involuntary jaw movements/possible TD) - EENT Eyes: Present: PERRL, EOM intact - Neck Neck: Present: supple, normal ROM - Respiratory Respiratory effort: normal Respiratory: bilateral: diminished, negative: rales, rhonchi, wheezing - Cardiovascular Rhythm: regular Heart Sounds: Present: S1 & S2 - Extremities Extremities: no ischemia - Abdominal General gastrointestinal: soft, non-tender, non-distended, normal bowel sounds - Integumentary Integumentary: Present: clear, warm, erythema (stage IV sacral decubitus ulcer) - Psychiatric Psychiatric: cooperative, other (minimally coming) - Neurologic Neurologic: moves all extremities Results - Labs CBC & Chem 7: 03/12/18 05:13 03/12/18 05:13 Labs: Laboratory Last Values WBC 14.2 K/mm3 (4.5-11.0) H 03/12/18 05:13 RBC 3.09 M/mm3 (3.65-5.03) L 03/12/18 05:13 Hgb 8.3 gm/dl (10.1-14.3) L 03/12/18 05:13 Hct 27.0 % (30.3-42.9) L 03/12/18 05:13 MCV 87 fl (79-97) 03/12/18 05:13 MCH 27 pg (28-32) L 03/12/18 05:13 MCHC 31 % (30-34) 03/12/18 05:13 RDW 20.7 % (13.2-15.2) H 03/12/18 05:13 Plt Count 522 K/mm3 (140-440) H 03/12/18 05:13 Lymph % (Auto) 17.0 % (13.4-35.0) 03/12/18 05:13 Kay % (Auto) 6.5 % (0.0-7.3) 03/12/18 05:13 Eos % (Auto) 1.9 % (0.0-4.3) 03/12/18 05:13 Baso % (Auto) 1.1 % (0.0-1.8) 03/12/18 05:13 Lymph # 2.4 K/mm3 (1.2-5.4) 03/12/18 05:13 Kay # 0.9 K/mm3 (0.0-0.8) H 03/12/18 05:13 Eos # 0.3 K/mm3 (0.0-0.4) 03/12/18 05:13 Baso # 0.2 K/mm3 (0.0-0.1) H 03/12/18 05:13 Add Manual Diff Complete 03/06/18 07:16 Total Counted 100 03/06/18 07:16 Seg Neutrophils % 73.5 % (40.0-70.0) H 03/12/18 05:13 Seg Neuts % (Manual) 97.0 % (40.0-70.0) H 03/06/18 07:16 Band Neutrophils % 0 % 03/06/18 07:16 Lymphocytes % (Manual) 2.0 % (13.4-35.0) L 03/06/18 07:16 Reactive Lymphs % (Man) 0 % 03/06/18 07:16 Monocytes % (Manual) 0 % (0.0-7.3) 03/06/18 07:16 Eosinophils % (Manual) 1.0 % (0.0-4.3) 03/06/18 07:16 Basophils % (Manual) 0 % (0.0-1.8) 03/06/18 07:16 Metamyelocytes % 0 % 03/06/18 07:16 Myelocytes % 0 % 03/06/18 07:16 Promyelocytes % 0 % 03/06/18 07:16 Blast Cells % 0 % 03/06/18 07:16 Nucleated RBC % Not Reportable 03/06/18 07:16 Seg Neutrophils # 10.5 K/mm3 (1.8-7.7) H 03/12/18 05:13 Seg Neutrophils # Man 16.6 K/mm3 (1.8-7.7) H 03/06/18 07:16 Band Neutrophils # 0.0 K/mm3 03/06/18 07:16 Lymphocytes # (Manual) 0.3 K/mm3 (1.2-5.4) L 03/06/18 07:16 Abs React Lymphs (Man) 0.0 K/mm3 03/06/18 07:16 Monocytes # (Manual) 0.0 K/mm3 (0.0-0.8) 03/06/18 07:16 Eosinophils # (Manual) 0.2 K/mm3 (0.0-0.4) 03/06/18 07:16 Basophils # (Manual) 0.0 K/mm3 (0.0-0.1) 03/06/18 07:16 Metamyelocytes # 0.0 K/mm3 03/06/18 07:16 Myelocytes # 0.0 K/mm3 03/06/18 07:16 Promyelocytes # 0.0 K/mm3 03/06/18 07:16 Blast Cells # 0.0 K/mm3 03/06/18 07:16 WBC Morphology Not Reportable 03/06/18 07:16 Hypersegmented Neuts Not Reportable 03/06/18 07:16 Hyposegmented Neuts Not Reportable 03/06/18 07:16 Hypogranular Neuts Not Reportable 03/06/18 07:16 Smudge Cells Not Reportable 03/06/18 07:16 Toxic Granulation Not Reportable 03/06/18 07:16 Toxic Vacuolation Not Reportable 03/06/18 07:16 Dohle Bodies Not Reportable 03/06/18 07:16 Pelger-Huet Anomaly Not Reportable 03/06/18 07:16 Misti Rods Not Reportable 03/06/18 07:16 Platelet Estimate Cons 03/06/18 07:16 Clumped Platelets Not Reportable 03/06/18 07:16 Plt Clumps, EDTA Not Reportable 03/06/18 07:16 Large Platelets Not Reportable 03/06/18 07:16 Giant Platelets Not Reportable 03/06/18 07:16 Platelet Satelliting Not Reportable 03/06/18 07:16 Plt Morphology Comment Not Reportable 03/06/18 07:16 RBC Morphology Not Reportable 03/06/18 07:16 Dimorphic RBCs Not Reportable 03/06/18 07:16 Polychromasia Not Reportable 03/06/18 07:16 Hypochromasia 1+ 03/06/18 07:16 Poikilocytosis Not Reportable 03/06/18 07:16 Anisocytosis 1+ 03/06/18 07:16 Microcytosis Not Reportable 03/06/18 07:16 Macrocytosis Not Reportable 03/06/18 07:16 Spherocytes Not Reportable 03/06/18 07:16 Pappenheimer Bodies Not Reportable 03/06/18 07:16 Sickle Cells Not Reportable 03/06/18 07:16 Target Cells Not Reportable 03/06/18 07:16 Tear Drop Cells Not Reportable 03/06/18 07:16 Ovalocytes Not Reportable 03/06/18 07:16 Helmet Cells Not Reportable 03/06/18 07:16 [place] Bodies Not Reportable 03/06/18 07:16 [place] Rings Not Reportable 03/06/18 07:16 [place] Cells Not Reportable 03/06/18 07:16 Bite Cells Not Reportable 03/06/18 07:16 Crenated Cell Not Reportable 03/06/18 07:16 Elliptocytes Not Reportable 03/06/18 07:16 Acanthocytes (Spur) Not Reportable 03/06/18 07:16 Rouleaux Not Reportable 03/06/18 07:16 Hemoglobin C Crystals Not Reportable 03/06/18 07:16 Schistocytes Not Reportable 03/06/18 07:16 Malaria parasites Not Reportable 03/06/18 07:16 ESR > 140.0 mm/Hr (0-20) 03/05/18 10:50 Nickolas Bodies Not Reportable 03/06/18 07:16 Hem Pathologist Commnt No 03/06/18 07:16 PT 14.7 Sec. (12.2-14.9) 03/03/18 11:45 INR 1.09 (0.87-1.13) 03/03/18 11:45 APTT 30.3 Sec. (24.2-36.6) 03/03/18 11:25 Sodium 138 mmol/L (137-145) 03/12/18 05:13 Potassium 4.8 mmol/L (3.6-5.0) 03/12/18 05:13 Chloride 102.8 mmol/L (98-107) 03/12/18 05:13 Carbon Dioxide 18 mmol/L (22-30) L 03/12/18 05:13 Anion Gap 22 mmol/L 03/12/18 05:13 BUN 38 mg/dL (7-17) H 03/12/18 05:13 Creatinine 2.9 mg/dL (0.7-1.2) H 03/12/18 05:13 Estimated GFR 19 ml/min 03/12/18 05:13 BUN/Creatinine Ratio 13 % 03/12/18 05:13 Glucose 95 mg/dL (65-100) 03/12/18 05:13 POC Glucose 137 (70-105) H 03/12/18 16:35 Hemoglobin A1c 5.8 % (4-6) 03/03/18 16:24 Lactic Acid 1.60 mmol/L (0.7-2.0) 03/03/18 15:26 Calcium 7.6 mg/dL (8.4-10.2) L 03/12/18 05:13 Magnesium 1.40 mg/dL (1.7-2.3) L 03/12/18 05:13 Total Bilirubin 1.20 mg/dL (0.1-1.2) 03/07/18 05:38 Direct Bilirubin 0.8 mg/dL (0-0.2) H 03/07/18 05:38 Indirect Bilirubin 0.4 mg/dL 03/07/18 05:38 AST 25 units/L (5-40) 03/07/18 05:38 ALT 22 units/L (7-56) 03/07/18 05:38 Alkaline Phosphatase 490 units/L (35-129) H 03/07/18 05:38 Total Creatine Kinase 173 units/L (30-135) H 03/03/18 11:45 C-Reactive Protein 22.60 mg/dL (0.00-1.30) H 03/05/18 10:50 Total Protein 5.9 g/dL (6.3-8.2) L 03/07/18 05:38 Albumin 2.0 g/dL (3.9-5) L 03/07/18 05:38 Albumin/Globulin Ratio 0.5 % 03/07/18 05:38 Urine Color Iza (Yellow) 03/04/18 00:17 Urine Turbidity Hazy (Clear) 03/04/18 00:17 Urine pH 7.0 (5.0-7.0) 03/04/18 00:17 Ur Specific [place] 1.015 (1.003-1.030) 03/04/18 00:17 Urine Protein 100 mg/dl mg/dL (Negative) 03/04/18 00:17 Urine Glucose (UA) 150 mg/dL (Negative) 03/04/18 00:17 Urine Ketones Neg mg/dL (Negative) 03/04/18 00:17 Urine Blood Sm (Negative) 03/04/18 00:17 Urine Nitrite Neg (Negative) 03/04/18 00:17 Urine Bilirubin Neg (Negative) 03/04/18 00:17 Urine Urobilinogen < 2.0 mg/dL (<2.0) 03/04/18 00:17 Ur Leukocyte Esterase Mod (Negative) 03/04/18 00:17 Urine WBC (Auto) 117.0 /HPF (0.0-6.0) H 03/04/18 00:17 Urine RBC (Auto) 22.0 /HPF (0.0-6.0) 03/04/18 00:17 U Epithel Cells (Auto) 2.0 /HPF (0-13.0) 03/04/18 00:17 Urine Bacteria (Auto) 2+ /HPF (Negative) 03/04/18 00:17 Urine WBC Clumps 2+ /HPF 03/04/18 00:17 Urine Mucus Few /HPF 03/04/18 00:17 Random Vancomycin 18.3 ug/mL (0-40.0) 03/11/18 14:49 Hepatitis A IgM Ab Non-reactive (NonReactive) 03/04/18 15:35 Hep Bs Antigen Non-reactive (Negative) 03/04/18 15:35 Hep B Core IgM Ab Non-reactive (NonReactive) 03/04/18 15:35 Hepatitis C Antibody Non-reactive (NonReactive) 03/04/18 15:35 Blood Type B POSITIVE 03/04/18 15:37 Antibody Screen Negative 03/04/18 15:37 Crossmatch See Detail 03/04/18 15:37
[2018-03-12] MEDS: VANCOMYCIN/NS 1 GM/250 ML 1 GM/250 ML BAG IV SCH (17:14)
[2018-03-12] MEDS: PROCRIT IV PRN (19:15)
[2018-03-12] MEDS: TYLENOL PO PRN (23:50)
[2018-03-13] MEDS ORDERED: MAGNESIUM SULFATE 2GM/50ML 2 GM/50 ML BAG IV ONE (07:06)
[2018-03-13] MEDS ORDERED: HEPARIN 10,000 UNITS/10 ML ONE (07:39)
[2018-03-13] MEDS ORDERED: XYLOCAINE 2% INFILTRATI ONE (07:39)
[2018-03-13] MEDS ORDERED: HEPARIN/NS 5000 UNIT/500ML(CATH LAB) 500 ML IR ONE (07:39)
--- NOTE | 2018-03-13 07:47 | Progress Note ---
Assessment and Plan Assessment and plan: --Severe anemia; Hb 4.0 Probably secondary to GI bleeding and secondary to deep surgical debridement Type and cross, transfuse 3 units of PRBC, closely monitor H&H Transfuse additional if needed, GI following --Stage IV Sacral decubitus ulcer: present on admission Had extensive deep surgical debridement per surgery today s/p surgical debridement, 03/05/2018 on Vanco Zosyn total 4 weeks per ID Patient had PICC line today --Metabolic Encephalopathy acute on chronic; back to baseline due to sepsis, Continue IV fluids and IV antibiotics --Sepsis:Secondary to infected decubitus ulcer and bacteremia, on antibiotics --Hyponatremia: Resolved -- ESRD on hemodialysis;HD per scheduled, nephrology following --Hypertension; moderate control on antihypertensives and PRN meds --Moderate to severe protein calorie Malnutrition ; present on admission dietary supplements supportive care --Dysphagia;s/p MBS, mechanical soft per speech --DVT prophylaxis; SCDs --Physical therapy, occupational therapy as tolerated --Full code status --DC planning. per Case management when medically stable Plan of care is reviewed with the patient's family member and the nurse History Interval history: Patient seen and examined medical records reviewed. 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 On examination ; Patient sleeping/sedated, responds to deep stimuli Vital signs reviewed Family member at the bedside Hospitalist Physical - Constitutional Vitals: Temp Pulse Resp BP Pulse Ox 98.5 F 91 H 20 109/49 100 03/13/18 03:11 03/13/18 03:11 03/13/18 03:11 03/13/18 03:11 03/13/18 03:11 General appearance: Present: mild distress, cachectic, other (sleeping/sedated) - EENT Eyes: Present: PERRL, EOM intact - Neck Neck: Present: supple, normal ROM - Respiratory Respiratory effort: normal Respiratory: bilateral: diminished, negative: rales, rhonchi, wheezing - Cardiovascular Rhythm: regular Heart Sounds: Present: S1 & S2 - Extremities Extremities: normal temperature Extremity abnormal: edema - Abdominal General gastrointestinal: soft, non-tender, normal bowel sounds - Integumentary Integumentary: Present: clear, warm, erythema (stage IV decubitus ulcer/status post surgical debridement) - Psychiatric Psychiatric: other (minimally communicative) - Neurologic Neurologic: other (minimally communicative) Results - Labs CBC & Chem 7: 03/13/18 16:02 03/13/18 Unknown Labs: Laboratory Last Values WBC 14.2 K/mm3 (4.5-11.0) H 03/12/18 05:13 RBC 3.09 M/mm3 (3.65-5.03) L 03/12/18 05:13 Hgb 8.3 gm/dl (10.1-14.3) L 03/12/18 05:13 Hct 27.0 % (30.3-42.9) L 03/12/18 05:13 MCV 87 fl (79-97) 03/12/18 05:13 MCH 27 pg (28-32) L 03/12/18 05:13 MCHC 31 % (30-34) 03/12/18 05:13 RDW 20.7 % (13.2-15.2) H 03/12/18 05:13 Plt Count 522 K/mm3 (140-440) H 03/12/18 05:13 Lymph % (Auto) 17.0 % (13.4-35.0) 03/12/18 05:13 [place] % (Auto) 6.5 % (0.0-7.3) 03/12/18 05:13 Eos % (Auto) 1.9 % (0.0-4.3) 03/12/18 05:13 Baso % (Auto) 1.1 % (0.0-1.8) 03/12/18 05:13 Lymph # 2.4 K/mm3 (1.2-5.4) 03/12/18 05:13 [place] # 0.9 K/mm3 (0.0-0.8) H 03/12/18 05:13 Eos # 0.3 K/mm3 (0.0-0.4) 03/12/18 05:13 Baso # 0.2 K/mm3 (0.0-0.1) H 03/12/18 05:13 Add Manual Diff Complete 03/06/18 07:16 Total Counted 100 03/06/18 07:16 Seg Neutrophils % 73.5 % (40.0-70.0) H 03/12/18 05:13 Seg Neuts % (Manual) 97.0 % (40.0-70.0) H 03/06/18 07:16 Band Neutrophils % 0 % 03/06/18 07:16 Lymphocytes % (Manual) 2.0 % (13.4-35.0) L 03/06/18 07:16 Reactive Lymphs % (Man) 0 % 03/06/18 07:16 Monocytes % (Manual) 0 % (0.0-7.3) 03/06/18 07:16 Eosinophils % (Manual) 1.0 % (0.0-4.3) 03/06/18 07:16 Basophils % (Manual) 0 % (0.0-1.8) 03/06/18 07:16 Metamyelocytes % 0 % 03/06/18 07:16 Myelocytes % 0 % 03/06/18 07:16 Promyelocytes % 0 % 03/06/18 07:16 Blast Cells % 0 % 03/06/18 07:16 Nucleated RBC % Not Reportable 03/06/18 07:16 Seg Neutrophils # 10.5 K/mm3 (1.8-7.7) H 03/12/18 05:13 Seg Neutrophils # Man 16.6 K/mm3 (1.8-7.7) H 03/06/18 07:16 Band Neutrophils # 0.0 K/mm3 03/06/18 07:16 Lymphocytes # (Manual) 0.3 K/mm3 (1.2-5.4) L 03/06/18 07:16 Abs React Lymphs (Man) 0.0 K/mm3 03/06/18 07:16 Monocytes # (Manual) 0.0 K/mm3 (0.0-0.8) 03/06/18 07:16 Eosinophils # (Manual) 0.2 K/mm3 (0.0-0.4) 03/06/18 07:16 Basophils # (Manual) 0.0 K/mm3 (0.0-0.1) 03/06/18 07:16 Metamyelocytes # 0.0 K/mm3 03/06/18 07:16 Myelocytes # 0.0 K/mm3 03/06/18 07:16 Promyelocytes # 0.0 K/mm3 03/06/18 07:16 Blast Cells # 0.0 K/mm3 03/06/18 07:16 WBC Morphology Not Reportable 03/06/18 07:16 Hypersegmented Neuts Not Reportable 03/06/18 07:16 Hyposegmented Neuts Not Reportable 03/06/18 07:16 Hypogranular Neuts Not Reportable 03/06/18 07:16 Smudge Cells Not Reportable 03/06/18 07:16 Toxic Granulation Not Reportable 03/06/18 07:16 Toxic Vacuolation Not Reportable 03/06/18 07:16 Dohle Bodies Not Reportable 03/06/18 07:16 Pelger-Huet Anomaly Not Reportable 03/06/18 07:16 Misti Rods Not Reportable 03/06/18 07:16 Platelet Estimate Cons 03/06/18 07:16 Clumped Platelets Not Reportable 03/06/18 07:16 Plt Clumps, EDTA Not Reportable 03/06/18 07:16 Large Platelets Not Reportable 03/06/18 07:16 Giant Platelets Not Reportable 03/06/18 07:16 Platelet Satelliting Not Reportable 03/06/18 07:16 Plt Morphology Comment Not Reportable 03/06/18 07:16 RBC Morphology Not Reportable 03/06/18 07:16 Dimorphic RBCs Not Reportable 03/06/18 07:16 Polychromasia Not Reportable 03/06/18 07:16 Hypochromasia 1+ 03/06/18 07:16 Poikilocytosis Not Reportable 03/06/18 07:16 Anisocytosis 1+ 03/06/18 07:16 Microcytosis Not Reportable 03/06/18 07:16 Macrocytosis Not Reportable 03/06/18 07:16 Spherocytes Not Reportable 03/06/18 07:16 Pappenheimer Bodies Not Reportable 03/06/18 07:16 Sickle Cells Not Reportable 03/06/18 07:16 Target Cells Not Reportable 03/06/18 07:16 Tear Drop Cells Not Reportable 03/06/18 07:16 Ovalocytes Not Reportable 03/06/18 07:16 Helmet Cells Not Reportable 03/06/18 07:16 [place] Bodies Not Reportable 03/06/18 07:16 [place] Rings Not Reportable 03/06/18 07:16 [place] Cells Not Reportable 03/06/18 07:16 Bite Cells Not Reportable 03/06/18 07:16 Crenated Cell Not Reportable 03/06/18 07:16 Elliptocytes Not Reportable 03/06/18 07:16 Acanthocytes (Spur) Not Reportable 03/06/18 07:16 Rouleaux Not Reportable 03/06/18 07:16 Hemoglobin C Crystals Not Reportable 03/06/18 07:16 Schistocytes Not Reportable 03/06/18 07:16 Malaria parasites Not Reportable 03/06/18 07:16 ESR > 140.0 mm/Hr (0-20) 03/05/18 10:50 Nickolas Bodies Not Reportable 03/06/18 07:16 Hem Pathologist Commnt No 03/06/18 07:16 PT 14.7 Sec. (12.2-14.9) 03/03/18 11:45 INR 1.09 (0.87-1.13) 03/03/18 11:45 APTT 30.3 Sec. (24.2-36.6) 03/03/18 11:25 Sodium 138 mmol/L (137-145) 03/12/18 05:13 Potassium 4.8 mmol/L (3.6-5.0) 03/12/18 05:13 Chloride 102.8 mmol/L (98-107) 03/12/18 05:13 Carbon Dioxide 18 mmol/L (22-30) L 03/12/18 05:13 Anion Gap 22 mmol/L 03/12/18 05:13 BUN 38 mg/dL (7-17) H 03/12/18 05:13 Creatinine 2.9 mg/dL (0.7-1.2) H 03/12/18 05:13 Estimated GFR 19 ml/min 03/12/18 05:13 BUN/Creatinine Ratio 13 % 03/12/18 05:13 Glucose 95 mg/dL (65-100) 03/12/18 05:13 POC Glucose 121 (70-105) H 03/12/18 21:35 Hemoglobin A1c 5.8 % (4-6) 03/03/18 16:24 Lactic Acid 1.60 mmol/L (0.7-2.0) 03/03/18 15:26 Calcium 7.6 mg/dL (8.4-10.2) L 03/12/18 05:13 Magnesium 1.40 mg/dL (1.7-2.3) L 03/12/18 05:13 Total Bilirubin 1.20 mg/dL (0.1-1.2) 03/07/18 05:38 Direct Bilirubin 0.8 mg/dL (0-0.2) H 03/07/18 05:38 Indirect Bilirubin 0.4 mg/dL 03/07/18 05:38 AST 25 units/L (5-40) 03/07/18 05:38 ALT 22 units/L (7-56) 03/07/18 05:38 Alkaline Phosphatase 490 units/L (35-129) H 03/07/18 05:38 Total Creatine Kinase 173 units/L (30-135) H 03/03/18 11:45 C-Reactive Protein 22.60 mg/dL (0.00-1.30) H 03/05/18 10:50 Total Protein 5.9 g/dL (6.3-8.2) L 03/07/18 05:38 Albumin 2.0 g/dL (3.9-5) L 03/07/18 05:38 Albumin/Globulin Ratio 0.5 % 03/07/18 05:38 Urine Color Iza (Yellow) 03/04/18 00:17 Urine Turbidity Hazy (Clear) 03/04/18 00:17 Urine pH 7.0 (5.0-7.0) 03/04/18 00:17 Ur Specific [place] 1.015 (1.003-1.030) 03/04/18 00:17 Urine Protein 100 mg/dl mg/dL (Negative) 03/04/18 00:17 Urine Glucose (UA) 150 mg/dL (Negative) 03/04/18 00:17 Urine Ketones Neg mg/dL (Negative) 03/04/18 00:17 Urine Blood Sm (Negative) 03/04/18 00:17 Urine Nitrite Neg (Negative) 03/04/18 00:17 Urine Bilirubin Neg (Negative) 03/04/18 00:17 Urine Urobilinogen < 2.0 mg/dL (<2.0) 03/04/18 00:17 Ur Leukocyte Esterase Mod (Negative) 03/04/18 00:17 Urine WBC (Auto) 117.0 /HPF (0.0-6.0) H 03/04/18 00:17 Urine RBC (Auto) 22.0 /HPF (0.0-6.0) 03/04/18 00:17 U Epithel Cells (Auto) 2.0 /HPF (0-13.0) 03/04/18 00:17 Urine Bacteria (Auto) 2+ /HPF (Negative) 03/04/18 00:17 Urine WBC Clumps 2+ /HPF 03/04/18 00:17 Urine Mucus Few /HPF 03/04/18 00:17 Random Vancomycin 18.3 ug/mL (0-40.0) 03/11/18 14:49 Hepatitis A IgM Ab Non-reactive (NonReactive) 03/04/18 15:35 Hep Bs Antigen Non-reactive (Negative) 03/04/18 15:35 Hep B Core IgM Ab Non-reactive (NonReactive) 03/04/18 15:35 Hepatitis C Antibody Non-reactive (NonReactive) 03/04/18 15:35 Blood Type B POSITIVE 03/04/18 15:37 Antibody Screen Negative 03/04/18 15:37 Crossmatch See Detail 03/04/18 15:37
[2018-03-13] MEDS ORDERED: NACL 0.9% 250ML 250 ML ONE (07:50)
[2018-03-13] MEDS: VERSED ONE ×3 (08:26→08:35)
[2018-03-13] MEDS: SUBLIMAZE ONE ×3 (08:26→08:35)
--- NOTE | 2018-03-13 08:55 | Operative Report ---
Operative Report Operative Report: EXAM: 1. Ultrasound-guided puncture of the right internal jugular vein 2. Fluoroscopic-guided placement of a right internal jugular tunneled non- cuffed smallbore dual-lumen catheter. DATE: 03/13/18 INDICATION: 72-year-old female with sacral decubitus infection requiring antibiotics without IV access. MEDICATIONS: Please see nursing report for full details. DEVICES: 5 Serbian dual-lumen power PICC catheter [employer] SUPERVISOR: FRAN KUMAR MD CONTRAST: None PROCEDURE: The risks, benefits, and alternatives were discussed and informed consent was obtained. The patient was transported to the angiography suite in satisfactory/ stable condition and was transported onto the angiography table. The patient's right internal jugular vein was assessed with ultrasound and determined to be patent prior to procedure. The patient was prepped and draped in a sterile fashion. The puncture site was anesthetized. Under sonographic guidance, the right internal jugular vein was punctured with a 21-gauge micropuncture needle and a 0.018 inch wire was advanced into the inferior vena cava. A suitable exit site was identified on the patient's chest inferior and lateral to the venotomy. The site was anesthetized with local anesthetic and the track was anesthetized. Dermatotomy was made. The 5 Serbian dual-lumen smallbore catheter was tunneled between the dermatotomy to the venotomy with the assistance of the peel-away sheath, micropuncture needle, and 0.018 inch wire. Over 0.018 inch wire, the transitional dilator was exchanged for a 5 Serbian peel -away sheath. The wire was used to kailash intravascular distance and removed. The catheter was cut to appropriate size. The catheter was advanced through the peel-away sheath and positioned centrally under fluoroscopic guidance. The peel-away sheath was removed. Dermabond was applied to the venotomy and then Steri-Strips were applied to the venotomy. 3-0 Ethilon suture was used to secure the catheter at the dermatotomy. The catheter was charged with heparin flush. Sterile dressing and Biopatch applied. The patient was transferred from the angiography suite back to the floor in stable condition. FINDINGS: 1. Excellent flow was obtained through the dual lumen smallbore tunneled catheter. 2. The catheter tip is in the right atrium. IMPRESSION: 1. Successful ultrasound and fluoroscopically guided placement of a right internal jugular tunneled non-cuffed dual-lumen catheter.
[2018-03-13] MEDS: DAKIN'S HALF STRENGTH TP SCH ×3 (09:19→22:45)
[2018-03-13 11:46] LABS: Calcium 7.6 mg/dL (8.4-10.2)
[2018-03-13] MEDS ORDERED: HYDROGEN PEROXIDE ONE (11:52)
[2018-03-13] MEDS ORDERED: MARCAINE-EPI 0.5%-1:200,000 INFILTRATI ONE (11:56)
[2018-03-13] MEDS ORDERED: SUBLIMAZE ONE (12:41)
[2018-03-13] MEDS ORDERED: DIPRIVAN 10 MG/ML IV ONE (12:41)
[2018-03-13] MEDS ORDERED: XYLOCAINE MPF 2% ONE (12:47)
[2018-03-13] MEDS ORDERED: ZEMURON IV ONE (12:47)
[2018-03-13] MEDS ORDERED: NACL 0.9% 1000 ML 1,000 ML ONE (12:48)
[2018-03-13] MEDS: NACL 0.9% 1000 ML 1,000 ML IV SCH (13:00)
--- NOTE | 2018-03-13 13:10 | Event Note ---
Date: 03/13/18 Patient was off the floor for debridement of decubiti. She has had coffee ground emesis and has passed a few dark stools in the past [address] on PPI therapy and order f/u H&Hs. Full consult tomorrow when patient can be seen.
[2018-03-13] MEDS ORDERED: NEO SYNEPHRINE/NS Syringe(OR USE) IV ONE (13:53)
[2018-03-13] MEDS ORDERED: HYDROGEN PEROXIDE MC ONE (13:58)
[2018-03-13] MEDS ORDERED: PROTONIX IV SCH (14:00)
[2018-03-13] MEDS ORDERED: ZOFRAN ONE (14:08)
[2018-03-13] MEDS ORDERED: NEOSTIGMINE ONE (14:09)
[2018-03-13] MEDS ORDERED: ROBINUL ONE ×2 (14:09)
--- NOTE | 2018-03-13 14:26 | Progress Note ---
Assessment and Plan Severe sepsis: Sacral Decubitus Ulcer: -ID on board, on Abx -Surgery on board, s/p surgical debridement of sacral wound on 03/05/18 -Wound debridment again today. ESRD on HD: -s/p HD yesterday, no HD today. -Assess need for HD on daily basis -Renally dose meds -Strict intake and output -Continue supportive therapy Anemia in CKD: -Epogen with HD -No indication for transfusion Swelling in RUE - picc line noted, venous doppler was ordered. -ve for DVT. Antoine Harden MD [phone] Subjective Date of service: 03/13/18 Principal diagnosis: ESRD Interval history: Tolerated HD yesterday. Sacral wound debridement today. Objective - Exam Narrative Exam: General appearance: well-developed, well-nourished EENT: ATNC, PERRL, mucous membranes moist Neck: no JVD, no carotid bruit Respiratory: Present: Clear to Ascultation. Absent: Rales, Ronchi Cardiology: regular, S1S2 Gastrointestinal: normoactive bowel sounds, no tenderness, no distended Integumentary: no rash, warm and dry Neurologic: no focal deficit, no asterixis, alert and oriented x3 Musculoskeletal: other (trace pitting edema in BLE, swelling in RUE) - Vital Signs Vital signs: Vital Signs - 12hr 03/13/18 03/13/18 03:11 10:00 Temperature 98.5 F Pulse Rate 91 H Pulse Rate [ 84 Right Radial] Respiratory 20 16 Rate Blood Pressure 109/49 O2 Sat by Pulse 100 Oximetry - Lab 03/12/18 05:13 03/13/18 Unknown Most recent lab results Calcium 7.6 mg/dL (8.4-10.2) L 03/13/18 Unknown Magnesium 1.90 mg/dL (1.7-2.3) 03/13/18 Unknown
--- NOTE | 2018-03-13 14:30 | Operative Report ---
PREOPERATIVE DIAGNOSIS: Recurrent necrotic tissue after a wide excision of infected sacral decubitus. POSTOPERATIVE DIAGNOSIS: Recurrent necrotic tissue after a wide excision of infected sacral decubitus. PROCEDURE: Deep and extensive debridement extending down through muscle and down to bone of recurrent areas of purulence and necrotic muscle and other tissue. SURGEON: Last Pimentel MD ANESTHESIA: General. ESTIMATED BLOOD LOSS: Minimal. DRAINS: No drains. COMPLICATIONS: None. DESCRIPTION OF PROCEDURE: The patient was taken to the operating room, placed in prone position, prepped and draped in usual sterile fashion. The area was once again inspected and some new purulent necrotic muscle was noted as previously seen on the floor. More of the skin covering the ulcerated area was removed. The necrotic muscle was then debrided in its entirety along with other necrotic fascia. The area was irrigated copiously and dried. Checked for hemostasis and noted to be dry. The tissues were inspected and no other purulent or overtly necrotic tissue was noted. Some of the muscle remains somewhat pale, though not necrotic at this time. The abscess cavity was then irrigated copiously with a 50% Betadine peroxide solution. Betadine peroxide-soaked Kerlix roll was then placed and packed in the abscess cavity. Fluffs and a pressure dressing were applied. The patient tolerated the procedure well and left the OR in stable condition. JOB# [id number] ZULY/ROHIT
[2018-03-13] MEDS ORDERED: BENADRYL ONE (14:39)
[2018-03-13] MEDS: ZOSYN/NS 2.25 GM/50ML 2.25 GM/50 ML BAG IV SCH ×3 (15:56→22:45)
[2018-03-13] MEDS: PROTONIX IV SCH ×2 (16:06→22:46)
[2018-03-13 16:21] LABS: Basophils # (Auto) 0.1 K/mm3 (0.0-0.1); Eosinophils # (Auto) 0.2 K/mm3 (0.0-0.4); Lymphocytes # (Auto) 1.4 K/mm3 (1.2-5.4); Lymphocytes % (Auto) 16.8 % (13.4-35.0); Mean Corpuscular HGB Conc 32 % (30-34); Mean Corpuscular Hemoglobin 29 pg (28-32); Mean Corpuscular Volume 90 fl (79-97); Monocytes # (Auto) 0.6 K/mm3 (0.0-0.8); Monocytes % (Auto) 7.2 % (0.0-7.3); Platelet Count 496 K/mm3 (140-440); Red Blood Count 1.38 M/mm3 (3.65-5.03)
[2018-03-13 16:30] LABS: Partial Thromboplastin Time 32.6 Sec. (24.2-36.6)
[2018-03-13] MEDS: MORPHINE IV PRN (16:32)
[2018-03-13 16:38] LABS: INR 1.39 (0.87-1.13)
[2018-03-13 16:46] LABS: Hematocrit 12.4 % (30.3-42.9); Red Cell Distribution Width 23.5 % (13.2-15.2)
[2018-03-13] MEDS: SODIUM CHLORIDE FLUSH SYRINGE 10 ML IV SCH ×3 (17:01→22:45)
[2018-03-13] MEDS ORDERED: NACL 0.9% 500 ML 500 ML IV NR (17:22)
[2018-03-14] MEDS: MORPHINE IV PRN (05:55)
[2018-03-14] MEDS: ZOSYN/NS 2.25 GM/50ML 2.25 GM/50 ML BAG IV SCH ×3 (05:56→22:35)
[2018-03-14] MEDS: NACL 0.9% 1000 ML 1,000 ML IV SCH (06:01)
[2018-03-14 08:00] LABS: Basophils # (Auto) 0.1 K/mm3 (0.0-0.1); Eosinophils # (Auto) 0.1 K/mm3 (0.0-0.4); Eosinophils % (Auto) 1.8 % (0.0-4.3); Hematocrit 23.7 % (30.3-42.9); Lymphocytes % (Auto) 13.2 % (13.4-35.0); Mean Corpuscular HGB Conc 34 % (30-34); Mean Corpuscular Hemoglobin 28 pg (28-32); Mean Corpuscular Volume 85 fl (79-97); Monocytes # (Auto) 0.6 K/mm3 (0.0-0.8); Monocytes % (Auto) 8.1 % (0.0-7.3); Platelet Count 406 K/mm3 (140-440); Red Cell Distribution Width 18.1 % (13.2-15.2)
[2018-03-14 08:14] LABS: INR 1.29 (0.87-1.13)
[2018-03-14 08:31] LABS: Calcium 7.4 mg/dL (8.4-10.2)
[2018-03-14] MEDS: DAKIN'S HALF STRENGTH TP SCH ×2 (09:04→22:38)
[2018-03-14] MEDS: SODIUM CHLORIDE FLUSH SYRINGE 10 ML IV SCH ×2 (09:04→22:36)
[2018-03-14] MEDS: PROTONIX IV SCH ×2 (09:04→22:36)
--- NOTE | 2018-03-14 09:08 | Progress Note ---
Assessment and Plan Assessment and plan: --Stage IV Sacral decubitus ulcer: present on admission Had extensive deep surgical debridement per surgery 03/13/2018 s/p surgical debridement, 03/05/2018 on Vanco Zosyn total 4 weeks per ID Patient had PICC line today --Severe anemia; Hb 4.0 Received total 4 units PRBC, Hb improved to 8 Closely monitor H&H ,Follow GI recommendations Drop in hemoglobin secondary to GI bleeding and deep surgical debridement --Metabolic Encephalopathy acute on chronic; back to baseline due to sepsis, Continue IV fluids and IV antibiotics --Sepsis:Secondary to infected decubitus ulcer and bacteremia, on antibiotics --Hyponatremia: Resolved -- ESRD on hemodialysis;HD per scheduled, nephrology following --Hypertension; moderate control on antihypertensives and PRN meds --Moderate to severe protein calorie Malnutrition ; present on admission dietary supplements supportive care --Dysphagia;s/p MBS, mechanical soft per speech --DVT prophylaxis; SCDs --Physical therapy, occupational therapy as tolerated --Full code status --DC planning. per Case management when medically stable Plan of care is reviewed with the patient's family member and the nurse History Interval history: Patient received 3 units of PRBC yesterday Today hemoglobin improved from 4-8 Patient is very restless and agitated, receiving dialysis the bedside Restrained for safety Underwent deep surgical debridement of stage IV decubitus ulcer Hospitalist Physical - Constitutional Vitals: Temp Pulse Resp BP Pulse Ox 98.5 F 85 20 154/55 92 03/14/18 08:44 03/14/18 08:44 03/14/18 08:44 03/14/18 08:44 03/14/18 08:44 General appearance: Present: no acute distress, cachectic, other (receiving hemodialysis at bedside ,agitated) - EENT Eyes: Present: PERRL, EOM intact - Neck Neck: Present: supple, normal ROM - Respiratory Respiratory effort: normal Respiratory: bilateral: diminished, rales, negative: rhonchi, wheezing - Cardiovascular Rhythm: regular Heart Sounds: Present: S1 & S2 - Extremities Extremities: no ischemia, No edema - Abdominal General gastrointestinal: soft, non-tender, non-distended, normal bowel sounds - Integumentary Integumentary: Present: clear, warm - Psychiatric Psychiatric: other (very minimal communication) - Neurologic Neurologic: other (very minimal communication) Results - Labs CBC & Chem 7: 03/14/18 Unknown 03/14/18 Unknown Labs: Laboratory Last Values WBC 7.8 K/mm3 (4.5-11.0) 03/14/18 Unknown RBC 2.80 M/mm3 (3.65-5.03) L 03/14/18 Unknown Hgb 8.0 gm/dl (10.1-14.3) L D 03/14/18 Unknown Hct 23.7 % (30.3-42.9) L D 03/14/18 Unknown MCV 85 fl (79-97) 03/14/18 Unknown MCH 28 pg (28-32) 03/14/18 Unknown MCHC 34 % (30-34) 03/14/18 Unknown RDW 18.1 % (13.2-15.2) H 03/14/18 Unknown Plt Count 406 K/mm3 (140-440) 03/14/18 Unknown Lymph % (Auto) 13.2 % (13.4-35.0) L 03/14/18 Unknown Garza % (Auto) 8.1 % (0.0-7.3) H 03/14/18 Unknown Eos % (Auto) 1.8 % (0.0-4.3) 03/14/18 Unknown Baso % (Auto) 1.0 % (0.0-1.8) 03/14/18 Unknown Lymph # 1.0 K/mm3 (1.2-5.4) L 03/14/18 Unknown Garza # 0.6 K/mm3 (0.0-0.8) 03/14/18 Unknown Eos # 0.1 K/mm3 (0.0-0.4) 03/14/18 Unknown Baso # 0.1 K/mm3 (0.0-0.1) 03/14/18 Unknown Add Manual Diff Complete 03/06/18 07:16 Total Counted 100 03/06/18 07:16 Seg Neutrophils % 75.9 % (40.0-70.0) H 03/14/18 Unknown Seg Neuts % (Manual) 97.0 % (40.0-70.0) H 03/06/18 07:16 Band Neutrophils % 0 % 03/06/18 07:16 Lymphocytes % (Manual) 2.0 % (13.4-35.0) L 03/06/18 07:16 Reactive Lymphs % (Man) 0 % 03/06/18 07:16 Monocytes % (Manual) 0 % (0.0-7.3) 03/06/18 07:16 Eosinophils % (Manual) 1.0 % (0.0-4.3) 03/06/18 07:16 Basophils % (Manual) 0 % (0.0-1.8) 03/06/18 07:16 Metamyelocytes % 0 % 03/06/18 07:16 Myelocytes % 0 % 03/06/18 07:16 Promyelocytes % 0 % 03/06/18 07:16 Blast Cells % 0 % 03/06/18 07:16 Nucleated RBC % Not Reportable 03/06/18 07:16 Seg Neutrophils # 5.9 K/mm3 (1.8-7.7) 03/14/18 Unknown Seg Neutrophils # Man 16.6 K/mm3 (1.8-7.7) H 03/06/18 07:16 Band Neutrophils # 0.0 K/mm3 03/06/18 07:16 Lymphocytes # (Manual) 0.3 K/mm3 (1.2-5.4) L 03/06/18 07:16 Abs React Lymphs (Man) 0.0 K/mm3 03/06/18 07:16 Monocytes # (Manual) 0.0 K/mm3 (0.0-0.8) 03/06/18 07:16 Eosinophils # (Manual) 0.2 K/mm3 (0.0-0.4) 03/06/18 07:16 Basophils # (Manual) 0.0 K/mm3 (0.0-0.1) 03/06/18 07:16 Metamyelocytes # 0.0 K/mm3 03/06/18 07:16 Myelocytes # 0.0 K/mm3 03/06/18 07:16 Promyelocytes # 0.0 K/mm3 03/06/18 07:16 Blast Cells # 0.0 K/mm3 03/06/18 07:16 WBC Morphology Not Reportable 03/06/18 07:16 Hypersegmented Neuts Not Reportable 03/06/18 07:16 Hyposegmented Neuts Not Reportable 03/06/18 07:16 Hypogranular Neuts Not Reportable 03/06/18 07:16 Smudge Cells Not Reportable 03/06/18 07:16 Toxic Granulation Not Reportable 03/06/18 07:16 Toxic Vacuolation Not Reportable 03/06/18 07:16 Dohle Bodies Not Reportable 03/06/18 07:16 Pelger-Huet Anomaly Not Reportable 03/06/18 07:16 Misti Rods Not Reportable 03/06/18 07:16 Platelet Estimate Cons 03/06/18 07:16 Clumped Platelets Not Reportable 03/06/18 07:16 Plt Clumps, EDTA Not Reportable 03/06/18 07:16 Large Platelets Not Reportable 03/06/18 07:16 Giant Platelets Not Reportable 03/06/18 07:16 Platelet Satelliting Not Reportable 03/06/18 07:16 Plt Morphology Comment Not Reportable 03/06/18 07:16 RBC Morphology Not Reportable 03/06/18 07:16 Dimorphic RBCs Not Reportable 03/06/18 07:16 Polychromasia Not Reportable 03/06/18 07:16 Hypochromasia 1+ 03/06/18 07:16 Poikilocytosis Not Reportable 03/06/18 07:16 Anisocytosis 1+ 03/06/18 07:16 Microcytosis Not Reportable 03/06/18 07:16 Macrocytosis Not Reportable 03/06/18 07:16 Spherocytes Not Reportable 03/06/18 07:16 Pappenheimer Bodies Not Reportable 03/06/18 07:16 Sickle Cells Not Reportable 03/06/18 07:16 Target Cells Not Reportable 03/06/18 07:16 Tear Drop Cells Not Reportable 03/06/18 07:16 Ovalocytes Not Reportable 03/06/18 07:16 Helmet Cells Not Reportable 03/06/18 07:16 [place] Bodies Not Reportable 03/06/18 07:16 Depue Rings Not Reportable 03/06/18 07:16 [place] Cells Not Reportable 03/06/18 07:16 Bite Cells Not Reportable 03/06/18 07:16 Crenated Cell Not Reportable 03/06/18 07:16 Elliptocytes Not Reportable 03/06/18 07:16 Acanthocytes (Spur) Not Reportable 03/06/18 07:16 Rouleaux Not Reportable 03/06/18 07:16 Hemoglobin C Crystals Not Reportable 03/06/18 07:16 Schistocytes Not Reportable 03/06/18 07:16 Malaria parasites Not Reportable 03/06/18 07:16 ESR > 140.0 mm/Hr (0-20) 03/05/18 10:50 Nickolas Bodies Not Reportable 03/06/18 07:16 Hem Pathologist Commnt No 03/06/18 07:16 PT 16.8 Sec. (12.2-14.9) H 03/14/18 Unknown INR 1.29 (0.87-1.13) H 03/14/18 Unknown APTT 32.6 Sec. (24.2-36.6) 03/13/18 16:02 Sodium 146 mmol/L (137-145) H 03/14/18 Unknown Potassium 3.6 mmol/L (3.6-5.0) 03/14/18 Unknown Chloride 108.0 mmol/L (98-107) H 03/14/18 Unknown Carbon Dioxide 22 mmol/L (22-30) 03/14/18 Unknown Anion Gap 20 mmol/L 03/14/18 Unknown BUN 44 mg/dL (7-17) H 03/14/18 Unknown Creatinine 2.6 mg/dL (0.7-1.2) H 03/14/18 Unknown Estimated GFR 22 ml/min 03/14/18 Unknown BUN/Creatinine Ratio 17 % 03/14/18 Unknown Glucose 115 mg/dL (65-100) H 03/14/18 Unknown POC Glucose 137 (70-105) H 03/14/18 07:21 Hemoglobin A1c 5.8 % (4-6) 03/03/18 16:24 Lactic Acid 1.60 mmol/L (0.7-2.0) 03/03/18 15:26 Calcium 7.4 mg/dL (8.4-10.2) L 03/14/18 Unknown Magnesium 1.90 mg/dL (1.7-2.3) 03/13/18 Unknown Total Bilirubin 1.20 mg/dL (0.1-1.2) 03/07/18 05:38 Direct Bilirubin 0.8 mg/dL (0-0.2) H 03/07/18 05:38 Indirect Bilirubin 0.4 mg/dL 03/07/18 05:38 AST 25 units/L (5-40) 03/07/18 05:38 ALT 22 units/L (7-56) 03/07/18 05:38 Alkaline Phosphatase 490 units/L (35-129) H 03/07/18 05:38 Total Creatine Kinase 173 units/L (30-135) H 03/03/18 11:45 C-Reactive Protein 22.60 mg/dL (0.00-1.30) H 03/05/18 10:50 Total Protein 5.9 g/dL (6.3-8.2) L 03/07/18 05:38 Albumin 2.0 g/dL (3.9-5) L 03/07/18 05:38 Albumin/Globulin Ratio 0.5 % 03/07/18 05:38 Urine Color Iza (Yellow) 03/04/18 00:17 Urine Turbidity Hazy (Clear) 03/04/18 00:17 Urine pH 7.0 (5.0-7.0) 03/04/18 00:17 Ur Specific [place] 1.015 (1.003-1.030) 03/04/18 00:17 Urine Protein 100 mg/dl mg/dL (Negative) 03/04/18 00:17 Urine Glucose (UA) 150 mg/dL (Negative) 03/04/18 00:17 Urine Ketones Neg mg/dL (Negative) 03/04/18 00:17 Urine Blood Sm (Negative) 03/04/18 00:17 Urine Nitrite Neg (Negative) 03/04/18 00:17 Urine Bilirubin Neg (Negative) 03/04/18 00:17 Urine Urobilinogen < 2.0 mg/dL (<2.0) 03/04/18 00:17 Ur Leukocyte Esterase Mod (Negative) 03/04/18 00:17 Urine WBC (Auto) 117.0 /HPF (0.0-6.0) H 03/04/18 00:17 Urine RBC (Auto) 22.0 /HPF (0.0-6.0) 03/04/18 00:17 U Epithel Cells (Auto) 2.0 /HPF (0-13.0) 03/04/18 00:17 Urine Bacteria (Auto) 2+ /HPF (Negative) 03/04/18 00:17 Urine WBC Clumps 2+ /HPF 03/04/18 00:17 Urine Mucus Few /HPF 03/04/18 00:17 Random Vancomycin 18.3 ug/mL (0-40.0) 03/11/18 14:49 Hepatitis A IgM Ab Non-reactive (NonReactive) 03/04/18 15:35 Hep Bs Antigen Non-reactive (Negative) 03/04/18 15:35 Hep B Core IgM Ab Non-reactive (NonReactive) 03/04/18 15:35 Hepatitis C Antibody Non-reactive (NonReactive) 03/04/18 15:35 Blood Type B POSITIVE 03/13/18 17:41 Antibody Screen Negative 03/13/18 17:41 Crossmatch See Detail 03/13/18 17:41
--- NOTE | 2018-03-14 09:14 | Progress Note ---
Assessment and Plan Assessment: 1) Sepsis: fever and leukocytosis resolved . Most likely due to infected sacral decubitus ulcer. 2) Infected sacral decubitus ulcer. -s/p surgical debridement 03/05. As per operative report debridement down to bone and purulence noted. Wound cx with Polymicrobial growth (E. faecalis, K. oxytoca, K. pneumoniae, C. freundii) -s/p further OR debridement on 03/13 -ESR >140, CRP 22.60 3) Cogulase Neg Staph in 1/4 blood cultures bottles on 03/03. Contaminant. Repeat BCx 03/05 NGTD. 4) Elevated liver function tests. Improved. 5) Encephalopathy. Improved. 6) ESRD on HD. Plan: -f/u OR cultures -Continue vancomycin and zosyn (D12). -upon discharge will do ciprofloxacin 500 mg PO qday (to cover K. oxytoca, K. pneumoniae, C. freundii) and vancomycin 1 g IV on HD 3 times a week (to cover E. faecalis) total 6 weeks until 04/16/18 -ID clinic f/u in 3 weeks 04/03/18 I will sign off, call me if questions Thank you for your consultation, will follow up with you. Briana Grissom MD Infectious Diseases Specialist [facility] Subjective Date of service: 03/14/18 Principal diagnosis: ESRD Interval history: Feels ok, no complaints, tmax 99.8, having GI bleed, moi to the OR on 03/13 Microbiology: Blood cultures: 03/03: Coagulase Neg Staph (1/4 bottles) 03/05 neg Wound cultures: 03/05 surgical biopsy cx: C. freundii, E faecalis. 03/05 buttock cx: K. pneumoniae, C. freundii, E. faecalis 03/05 Surgery: E. faecalis, K. pneumoniae, K. oxytoca, Citrobacter 03/05 anaerobic: NGTD 03/13 pending Current Antimicrobials: Zosyn 03/03- Vancomcyin 03/03- Objective - Exam Narrative Exam: General appearance:Awake. Alert. Following commands. Eyes: anicteric sclerae, moist conjunctivae; PERRLA HENT: Atraumatic; oropharynx clear with moist mucous membranes and no mucosal ulcerations/no oral thrush; normal hard and soft palate. Normal external ears. Neck: Trachea midline; supple, no thyromegaly or lymphadenopathy Lungs: CTA, with normal respiratory effort and no intercostal retractions CV: S1,S2 Abdomen: Soft, non-tender; non-distended. G tube in place, site clean. Extremities: No peripheral edema or extremity lymphadenopathy. LUE AVF, thrill. Skin: Sacral decubitus no examined today Neuro: Awake. Alert. Follows commands. Moves extremities. Lines: RUE midline - Constitutional Vitals: Vital Signs Temp Pulse Resp BP Pulse Ox 98.5 F 85 20 154/55 92 03/14/18 08:44 03/14/18 08:44 03/14/18 08:44 03/14/18 08:44 03/14/18 08:44 Temperature -Last 24 Hours Temperature 98.5 F Temperature 98.0 F Temperature 98.0 F Temperature 98.0 F Temperature 97.8 F Temperature 97.8 F Temperature 97.8 F Temperature 97.7 F Temperature 97.7 F Temperature 97.7 F Temperature 97.6 F Temperature 97.8 F Temperature 97.5 F Temperature 97.6 F Temperature 97.4 F Temperature 97.9 F Temperature 97 F Temperature 98.1 F Temperature 98.4 F Temperature 98.4 F - Labs CBC & Chem 7: 03/14/18 Unknown 03/14/18 Unknown Labs: Abnormal lab results 03/04/18 03/13/18 03/13/18 Range/Units 15:37 11:38 16:02 RBC 1.38 L (3.65-5.03) M/mm3 Hgb 4.0 L* D (10.1-14.3) gm/dl Hct 12.4 L* D (30.3-42.9) % RDW 23.5 H (13.2-15.2) % Plt Count 496 H (140-440) K/mm3 Lymph % (Auto) (13.4-35.0) % [place] % (Auto) (0.0-7.3) % Lymph # (1.2-5.4) K/mm3 Seg Neutrophils % 73.0 H (40.0-70.0) % PT (12.2-14.9) Sec. INR (0.87-1.13) Sodium (137-145) mmol/L Chloride (98-107) mmol/L BUN (7-17) mg/dL Creatinine (0.7-1.2) mg/dL Glucose (65-100) mg/dL POC Glucose 128 H (70-105) Calcium (8.4-10.2) mg/dL Crossmatch See Detail 03/13/18 03/13/18 03/13/18 Range/Units 16:02 16:52 17:41 RBC (3.65-5.03) M/mm3 Hgb (10.1-14.3) gm/dl Hct (30.3-42.9) % RDW (13.2-15.2) % Plt Count (140-440) K/mm3 Lymph % (Auto) (13.4-35.0) % [place] % (Auto) (0.0-7.3) % Lymph # (1.2-5.4) K/mm3 Seg Neutrophils % (40.0-70.0) % PT 17.9 H (12.2-14.9) Sec. INR 1.39 H (0.87-1.13) Sodium (137-145) mmol/L Chloride (98-107) mmol/L BUN (7-17) mg/dL Creatinine (0.7-1.2) mg/dL Glucose (65-100) mg/dL POC Glucose 140 H (70-105) Calcium (8.4-10.2) mg/dL Crossmatch See Detail 03/13/18 03/13/18 03/14/18 Range/Units 21:50 Unknown 07:21 RBC (3.65-5.03) M/mm3 Hgb (10.1-14.3) gm/dl Hct (30.3-42.9) % RDW (13.2-15.2) % Plt Count (140-440) K/mm3 Lymph % (Auto) (13.4-35.0) % [place] % (Auto) (0.0-7.3) % Lymph # (1.2-5.4) K/mm3 Seg Neutrophils % (40.0-70.0) % PT (12.2-14.9) Sec. INR (0.87-1.13) Sodium 148 H D (137-145) mmol/L Chloride 109.7 H (98-107) mmol/L BUN 40 H (7-17) mg/dL Creatinine 2.2 H (0.7-1.2) mg/dL Glucose 106 H (65-100) mg/dL POC Glucose 184 H 137 H (70-105) Calcium 7.6 L (8.4-10.2) mg/dL Crossmatch 03/14/18 03/14/18 03/14/18 Range/Units Unknown Unknown Unknown RBC 2.80 L (3.65-5.03) M/mm3 Hgb 8.0 L D (10.1-14.3) gm/dl Hct 23.7 L D (30.3-42.9) % RDW 18.1 H (13.2-15.2) % Plt Count (140-440) K/mm3 Lymph % (Auto) 13.2 L (13.4-35.0) % [place] % (Auto) 8.1 H (0.0-7.3) % Lymph # 1.0 L (1.2-5.4) K/mm3 Seg Neutrophils % 75.9 H (40.0-70.0) % PT 16.8 H (12.2-14.9) Sec. INR 1.29 H (0.87-1.13) Sodium 146 H (137-145) mmol/L Chloride 108.0 H (98-107) mmol/L BUN 44 H (7-17) mg/dL Creatinine 2.6 H (0.7-1.2) mg/dL Glucose 115 H (65-100) mg/dL POC Glucose (70-105) Calcium 7.4 L (8.4-10.2) mg/dL Crossmatch
[2018-03-14] MEDS: PROCRIT IV PRN (13:19)
--- NOTE | 2018-03-14 14:28 | Gastroenterology Consultation ---
History of Present Illness - Reason for Consult Consult date: 03/14/18 GI bleeding Requesting physician: JANET GRAVES - History of Present Illness Ms. Toth is a 72 y/o female admitted on 03/03/18 for AMS, fever, hypotension, Sepsis. The patient presented with an infected sacral decub ulcer. ID was consulted and ultimately the patient underwent debridement x 2. On admission the patient exhibited CGE and two episodes of dark stools per nursing. This was self limiting and the patient ultimately had a normal BM. After her second debridement, she was noted in recovery to have an episode of CGE and dark stool. The patient was placed on PPI. Information is provided per nursing, as the patient is not able to give history and family not at bedside. Her H/H was checked post debridement and was noted to be 4.0 ( hgb). She is s/p transfusion of PRBC with stable H/H currently. Past History Past Medical History: diabetes, ESRD, GERD, hypertension, hypothyroidism, renal failure, other (dementia) Past Surgical History: Other (LUE AVF) Medications and Allergies Allergies Allergy/AdvReac Type Severity Reaction Status Date / Time No Known Allergies Allergy Verified 03/03/18 13:03 Home Medications Medication Instructions Recorded Confirmed Last Taken Type Benztropine 1 mg PO HS 03/04/18 03/04/18 Unknown History Calcium Acetate 667 mg PO TID 03/04/18 03/04/18 Unknown History Carvedilol 6.25 mg PO BID 03/04/18 03/04/18 Unknown History Clonidine HCl 0.1 mg PO BID 03/04/18 03/04/18 Unknown History Docusate Sodium 100 mg PO DAILY 03/04/18 03/04/18 Unknown History Esomeprazole Magnesium 20 mg PO DAILY 03/04/18 03/04/18 Unknown History Haldol 2.5 mg PO DAILY 03/04/18 03/04/18 Unknown History Haldol 5 mg PO HS 03/04/18 03/04/18 Unknown History Levothyroxine 100 mcg PO DAILY 03/04/18 03/04/18 Unknown History Mirtazapine [Remeron] 30 mg PO HS 03/04/18 03/04/18 Unknown History Ranitidine HCl 150 mg PO HS 03/04/18 03/04/18 Unknown History Simvastatin 20 mg PO HS 03/04/18 03/04/18 Unknown History Spironolactone [Aldactone] 25 mg PO DAILY 03/04/18 03/04/18 Unknown History amLODIPine 5 mg PO DAILY 03/04/18 03/04/18 Unknown History Active Meds: Active Medications Acetaminophen (Tylenol) 650 mg PO Q4H PRN PRN Reason: Pain MILD(1-3)/Fever >100.5/MONTENEGRO Last Admin: 03/12/18 23:50 Dose: 650 mg Lipase/Protease/Amylase (Pancreaze Dr 10,500 Unit) 1 each FEEDTUBE PRN PRN PRN Reason: For Clogged Feeding Tube Epoetin Kulwant (Procrit) 10,000 unit IV FELIPA PRN PRN Reason: hemodialysis Last Admin: 03/14/18 13:19 Dose: 10,000 unit Sodium Chloride (Nacl 0.9% 1000 Ml) 1,000 mls @ 100 mls/hr IV DIRECT ROMEL Last Admin: 03/12/18 05:29 Dose: 100 mls/hr Piperacillin Sod/Tazobactam Sod (Zosyn/Ns 2.25 Gm/50ml) 2.25 gm in 50 mls @ 100 mls/hr IV Q8HR ROMEL; Protocol Last Admin: 03/14/18 13:40 Dose: 100 mls/hr Sodium Chloride (Nacl 0.9%) 100 mls @ 999 mls/hr IV FELIPA PRN PRN Reason: Hypotension Vancomycin HCl (Vancomycin/Ns 1 Gm/250 Ml) 1 gm in 250 mls @ 167.007 mls/hr IV [id number] ROMEL Stop: 04/16/18 23:59 Last Admin: 03/12/18 17:14 Dose: Not Given Sodium Chloride (Nacl 0.9%) 100 mls @ 999 mls/hr IV FELIPA PRN PRN Reason: Hypotension Sodium Chloride (Nacl 0.9%) 100 mls @ 999 mls/hr IV FELIPA PRN PRN Reason: Hypotension Sodium Chloride (Nacl 0.9% 1000 Ml) 1,000 mls @ 42 mls/hr IV DIRECT ROMEL Last Admin: 03/14/18 06:01 Dose: 42 mls/hr Morphine Sulfate (Morphine) 2 mg IV Q4H PRN PRN Reason: Pain, Moderate (4-6) Last Admin: 03/14/18 05:55 Dose: 2 mg Ondansetron HCl (Zofran) 4 mg IV Q8H PRN PRN Reason: Nausea And Vomiting Last Admin: 03/09/18 22:09 Dose: 4 mg Pantoprazole Sodium (Protonix) 40 mg IV BID [facility] Last Admin: 03/14/18 09:04 Dose: 40 mg Simple Syrup (Simple Syrup) 15 ml FEEDTUBE PRN PRN PRN Reason: Hypoglycemia Simple Syrup (Simple Syrup) 30 ml FEEDTUBE PRN PRN PRN Reason: Hypoglycemia Sodium Bicarbonate (Sodium Bicarbonate) 325 mg FEEDTUBE PRN PRN PRN Reason: For Clogged Feeding Tube Sodium Chloride (Sodium Chloride Flush Syringe 10 Ml) 10 ml IV BID [facility] Last Admin: 03/14/18 09:04 Dose: 10 ml Sodium Chloride (Sodium Chloride Flush Syringe 10 Ml) 10 ml IV PRN PRN PRN Reason: LINE FLUSH Sodium Hypochlorite (Dakin's Half Strength) 1 applic TP BID [facility] Last Admin: 03/14/18 09:04 Dose: Not Given Vancomycin HCl (Vancomycin Pharmacy To Dose) 1 each IV PKCONSULT [facility] Stop: 04/16/18 12:59 Review of Systems - Review of Systems ROS unobtainable: due to mental status Exam - Constitutional Vital Signs: Temp Pulse Resp BP Pulse Ox 98.5 F 70 16 150/65 92 03/14/18 09:50 03/14/18 13:15 03/14/18 10:00 03/14/18 13:15 03/14/18 10:00 General appearance: no acute distress, other (pt exhibits repeated " chewing" behavior.) - EENT Eyes: EOM intact ENT: hearing intact - Neck Neck: supple - Cardiovascular Rhythm: regular Heart Sounds: Present: S1 & S2 - Gastrointestinal General gastrointestinal: Present: soft, non-tender, non-distended - Integumentary Integumentary: Present: warm, dry - Neurologic Neurological: other (alert responds but difficult to understand) - Psychiatric Psychiatric: appropriate mood/affect - Labs CBC & Chem 7: 03/14/18 Unknown 03/14/18 Unknown Lab Results: Laboratory Results - last 24 hr 03/04/18 03/13/18 03/13/18 15:37 16:02 16:02 WBC 8.2 RBC 1.38 L Hgb 4.0 L* D Hct 12.4 L* D MCV 90 MCH 29 MCHC 32 RDW 23.5 H Plt Count 496 H Lymph % (Auto) 16.8 [place] % (Auto) 7.2 Eos % (Auto) 2.0 Baso % (Auto) 1.0 Lymph # 1.4 [place] # 0.6 Eos # 0.2 Baso # 0.1 Seg Neutrophils % 73.0 H Seg Neutrophils # 6.0 PT 17.9 H INR 1.39 H APTT 32.6 Sodium Potassium Chloride Carbon Dioxide Anion Gap BUN Creatinine Estimated GFR BUN/Creatinine Ratio Glucose POC Glucose Calcium Blood Type Antibody Screen Crossmatch See Detail 03/13/18 03/13/18 03/13/18 16:52 17:41 21:50 WBC RBC Hgb Hct MCV MCH MCHC RDW Plt Count Lymph % (Auto) [place] % (Auto) Eos % (Auto) Baso % (Auto) Lymph # [place] # Eos # Baso # Seg Neutrophils % Seg Neutrophils # PT INR APTT Sodium Potassium Chloride Carbon Dioxide Anion Gap BUN Creatinine Estimated GFR BUN/Creatinine Ratio Glucose POC Glucose 140 H 184 H Calcium Blood Type B POSITIVE Antibody Screen Negative Crossmatch See Detail 03/14/18 03/14/18 03/14/18 07:21 11:18 Unknown WBC 7.8 RBC 2.80 L Hgb 8.0 L D Hct 23.7 L D MCV 85 MCH 28 MCHC 34 RDW 18.1 H Plt Count 406 Lymph % (Auto) 13.2 L [place] % (Auto) 8.1 H Eos % (Auto) 1.8 Baso % (Auto) 1.0 Lymph # 1.0 L [place] # 0.6 Eos # 0.1 Baso # 0.1 Seg Neutrophils % 75.9 H Seg Neutrophils # 5.9 PT INR APTT Sodium Potassium Chloride Carbon Dioxide Anion Gap BUN Creatinine Estimated GFR BUN/Creatinine Ratio Glucose POC Glucose 137 H 169 H Calcium Blood Type Antibody Screen Crossmatch 03/14/18 03/14/18 Unknown Unknown WBC RBC Hgb Hct MCV MCH MCHC RDW Plt Count Lymph % (Auto) [place] % (Auto) Eos % (Auto) Baso % (Auto) Lymph # [place] # Eos # Baso # Seg Neutrophils % Seg Neutrophils # PT 16.8 H INR 1.29 H APTT Sodium 146 H Potassium 3.6 Chloride 108.0 H Carbon Dioxide 22 Anion Gap 20 BUN 44 H Creatinine 2.6 H Estimated GFR 22 BUN/Creatinine Ratio 17 Glucose 115 H POC Glucose Calcium 7.4 L Blood Type Antibody Screen Crossmatch Assessment and Plan 1. Anemia 2. Melena, CGE 3. Infection to decu ulcer 4. Hx of dementia -Continue PPI -Diet as tolerated ( pureed) -No further vomiting or BMs today, s/p 3 units of PRBC with stable H/H -Pt has multiple etiologies to cause anemia including ESRD, decub ulcer, however she did have an acute drop post debridement. -Monitor H/H for now, tranfuse as needed. WIll consider EGD based on patient progress.
--- NOTE | 2018-03-14 14:57 | Progress Note ---
Assessment and Plan POD # 1 Pt awake & alert. sitting up having lunch critically low h/h noted. secondary to GI bleed pt transfused 4 units GI consult noted surgically stable dressings dry to remove dressings Saturday and convert to wd vac hold all anticoagulants PPI's as per GI Selected Entries 03/14/18 03/14/18 09:50 13:15 Temperature 98.5 F Pulse Rate 70 Blood Pressure 150/65 Laboratory Tests 03/13/18 16:02 WBC 8.2 Hgb 4.0 L* D Hct 12.4 L* D Objective Vital Signs - 12hr 03/14/18 03/14/18 03/14/18 03:00 03:06 03:12 Temperature 97.8 F 97.8 F Pulse Rate 71 Pulse Rate [ Left Radial] Respiratory 20 Rate Blood Pressure 124/44 O2 Sat by Pulse 100 Oximetry 03/14/18 03/14/18 03/14/18 03:14 03:30 04:00 Temperature 97.8 F Pulse Rate 70 68 Pulse Rate [ Left Radial] Respiratory 20 20 Rate Blood Pressure 124/49 118/42 124/48 O2 Sat by Pulse 100 Oximetry 03/14/18 03/14/18 03/14/18 04:18 04:42 04:48 Temperature 98.0 F 98.0 F Pulse Rate 71 73 Pulse Rate [ Left Radial] Respiratory 20 20 20 Rate Blood Pressure 133/45 O2 Sat by Pulse Oximetry 03/14/18 03/14/18 03/14/18 05:35 05:42 05:55 Temperature 98.0 F Pulse Rate 71 Pulse Rate [ Left Radial] Respiratory 20 20 Rate Blood Pressure 136/76 O2 Sat by Pulse Oximetry 03/14/18 03/14/18 03/14/18 06:25 08:44 09:50 Temperature 98.5 F 98.5 F Pulse Rate 85 85 Pulse Rate [ Left Radial] Respiratory 20 20 16 Rate Blood Pressure 154/55 147/73 O2 Sat by Pulse 92 Oximetry 03/14/18 03/14/18 03/14/18 10:00 10:15 10:30 Temperature Pulse Rate 74 70 68 Pulse Rate [ 84 Left Radial] Respiratory 16 Rate Blood Pressure 166/63 166/81 170/73 O2 Sat by Pulse 92 Oximetry 03/14/18 03/14/18 03/14/18 10:45 11:00 11:15 Temperature Pulse Rate 71 73 76 Pulse Rate [ Left Radial] Respiratory Rate Blood Pressure 152/71 155/69 155/69 O2 Sat by Pulse Oximetry 03/14/18 03/14/18 03/14/18 11:30 11:45 12:00 Temperature Pulse Rate 70 84 77 Pulse Rate [ Left Radial] Respiratory Rate Blood Pressure 144/68 167/66 142/63 O2 Sat by Pulse Oximetry 03/14/18 03/14/18 03/14/18 12:15 12:30 12:45 Temperature Pulse Rate 78 76 79 Pulse Rate [ Left Radial] Respiratory Rate Blood Pressure 152/67 138/62 130/62 O2 Sat by Pulse Oximetry 03/14/18 13:15 Temperature Pulse Rate 70 Pulse Rate [ Left Radial] Respiratory Rate Blood Pressure 150/65 O2 Sat by Pulse Oximetry - Labs 03/14/18 Unknown 03/14/18 Unknown Diabetes panel 03/14/18 Range/Units Unknown Sodium 146 H (137-145) mmol/L Potassium 3.6 (3.6-5.0) mmol/L Chloride 108.0 H (98-107) mmol/L Carbon Dioxide 22 (22-30) mmol/L BUN 44 H (7-17) mg/dL Creatinine 2.6 H (0.7-1.2) mg/dL Glucose 115 H (65-100) mg/dL Calcium 7.4 L (8.4-10.2) mg/dL Calcium panel 03/14/18 Range/Units Unknown Calcium 7.4 L (8.4-10.2) mg/dL Pituitary panel 03/14/18 Range/Units Unknown Sodium 146 H (137-145) mmol/L Potassium 3.6 (3.6-5.0) mmol/L Chloride 108.0 H (98-107) mmol/L Carbon Dioxide 22 (22-30) mmol/L BUN 44 H (7-17) mg/dL Creatinine 2.6 H (0.7-1.2) mg/dL Glucose 115 H (65-100) mg/dL Calcium 7.4 L (8.4-10.2) mg/dL Adrenal panel 03/14/18 Range/Units Unknown Sodium 146 H (137-145) mmol/L Potassium 3.6 (3.6-5.0) mmol/L Chloride 108.0 H (98-107) mmol/L Carbon Dioxide 22 (22-30) mmol/L BUN 44 H (7-17) mg/dL Creatinine 2.6 H (0.7-1.2) mg/dL Glucose 115 H (65-100) mg/dL Calcium 7.4 L (8.4-10.2) mg/dL
--- NOTE | 2018-03-14 16:04 | Progress Note ---
Assessment and Plan Severe sepsis: Sacral Decubitus Ulcer: -ID on board, on Abx -Surgery on board, s/p surgical debridement of sacral wound on 03/05/18 -Wound debridment again yesterday. ESRD on HD: -HD today. -Assess need for HD on daily basis -Renally dose meds -Strict intake and output -Continue supportive therapy Anemia in CKD: -Epogen with HD -No indication for transfusion Swelling in RUE - picc line noted, venous doppler was ordered. -ve for DVT. Hypernatremia: -D2D718 cc once. Antoine Harden MD [phone] Subjective Date of service: 03/14/18 Principal diagnosis: ESRD Interval history: HD today. Objective - Exam Narrative Exam: General appearance: well-developed, well-nourished EENT: ATNC, PERRL, mucous membranes moist Neck: no JVD, no carotid bruit Respiratory: Present: Clear to Ascultation. Absent: Rales, Ronchi Cardiology: regular, S1S2 Gastrointestinal: normoactive bowel sounds, no tenderness, no distended Integumentary: no rash, warm and dry Neurologic: no focal deficit, no asterixis, alert and oriented x3 Musculoskeletal: other (trace pitting edema in BLE, swelling in RUE) - Vital Signs Vital signs: Vital Signs - 12hr 03/14/18 03/14/18 03/14/18 04:18 04:42 04:48 Temperature 98.0 F 98.0 F Pulse Rate 71 73 Pulse Rate [ Left Radial] Respiratory 20 20 20 Rate Blood Pressure 133/45 O2 Sat by Pulse Oximetry 03/14/18 03/14/18 03/14/18 05:35 05:42 05:55 Temperature 98.0 F Pulse Rate 71 Pulse Rate [ Left Radial] Respiratory 20 20 Rate Blood Pressure 136/76 O2 Sat by Pulse Oximetry 03/14/18 03/14/18 03/14/18 06:25 08:44 09:50 Temperature 98.5 F 98.5 F Pulse Rate 85 85 Pulse Rate [ Left Radial] Respiratory 20 20 16 Rate Blood Pressure 154/55 147/73 O2 Sat by Pulse 92 Oximetry 03/14/18 03/14/18 03/14/18 10:00 10:15 10:30 Temperature Pulse Rate 74 70 68 Pulse Rate [ 84 Left Radial] Respiratory 16 Rate Blood Pressure 166/63 166/81 170/73 O2 Sat by Pulse 92 Oximetry 03/14/18 03/14/18 03/14/18 10:45 11:00 11:15 Temperature Pulse Rate 71 73 76 Pulse Rate [ Left Radial] Respiratory Rate Blood Pressure 152/71 155/69 155/69 O2 Sat by Pulse Oximetry 03/14/18 03/14/18 03/14/18 11:30 11:45 12:00 Temperature Pulse Rate 70 84 77 Pulse Rate [ Left Radial] Respiratory Rate Blood Pressure 144/68 167/66 142/63 O2 Sat by Pulse Oximetry 03/14/18 03/14/18 03/14/18 12:15 12:30 12:45 Temperature Pulse Rate 78 76 79 Pulse Rate [ Left Radial] Respiratory Rate Blood Pressure 152/67 138/62 130/62 O2 Sat by Pulse Oximetry 03/14/18 13:15 Temperature Pulse Rate 70 Pulse Rate [ Left Radial] Respiratory Rate Blood Pressure 150/65 O2 Sat by Pulse Oximetry - Lab 03/14/18 Unknown 03/14/18 Unknown Most recent lab results Calcium 7.4 mg/dL (8.4-10.2) L 03/14/18 Unknown Magnesium 1.90 mg/dL (1.7-2.3) 03/13/18 Unknown
[2018-03-14] MEDS ORDERED: D5W 1,000 ML IV SCH (17:00)
[2018-03-14] MEDS ORDERED: HALDOL IM PRN (17:44)
[2018-03-14] MEDS ORDERED: DIFLUCAN PO ONE (18:00)
[2018-03-14] MEDS: COGENTIN PO SCH (22:36)
[2018-03-15] MEDS: MORPHINE IV PRN ×2 (05:44→22:37)
[2018-03-15] MEDS: ZOSYN/NS 2.25 GM/50ML 2.25 GM/50 ML BAG IV SCH ×3 (05:45→22:35)
[2018-03-15] MEDS: NACL 0.9% 1000 ML 1,000 ML IV SCH (05:48)
--- NOTE | 2018-03-15 08:43 | Progress Note ---
Assessment and Plan Assessment and plan: --GI bleeding/with severe anemia Received 4 units of PRBC, no new episodes GI following --Severe anemia; Hb 4.0 Received total 4 units PRBC, Hb improved to 8 Closely monitor H&H , GI following Drop in hemoglobin secondary to GI bleeding and deep surgical debridement --Stage IV Sacral decubitus ulcer: present on admission Had extensive deep surgical debridement per surgery 03/13/2018 s/p surgical debridement, 03/05/2018 on Vanco Zosyn total 4 weeks per ID Patient had PICC line today --Metabolic Encephalopathy acute on chronic; back to baseline due to sepsis, Continue IV fluids and IV antibiotics --Sepsis:Secondary to infected decubitus ulcer and bacteremia, on antibiotics --Hyponatremia: Resolved -- ESRD on hemodialysis;HD per scheduled, nephrology following --Hypertension; moderate control on antihypertensives and PRN meds --Moderate to severe protein calorie Malnutrition ; present on admission dietary supplements supportive care --Dysphagia;s/p MBS, mechanical soft per speech --DVT prophylaxis; SCDs --Physical therapy, occupational therapy as tolerated --Full code status --DC planning. per Case management when medically stable Plan of care is reviewed with the patient's family member and the nurse History Interval history: Patient seen and examined this morning Medical records reviewed No new events reported No new episodes of bleeding Alert and awake, not in acute distress Vital signs reviewed Hospitalist Physical - Constitutional Vitals: Temp Pulse Resp BP Pulse Ox 98.6 F 76 20 150/62 98 03/15/18 07:41 03/15/18 07:41 03/15/18 07:41 03/15/18 07:41 03/15/18 07:41 General appearance: Present: no acute distress, cachectic, other (involuntary movements of the lips/? TD) - EENT Eyes: Present: PERRL, EOM intact - Neck Neck: Present: supple, normal ROM - Respiratory Respiratory effort: normal Respiratory: bilateral: diminished, negative: rales, rhonchi, wheezing - Cardiovascular Rhythm: regular Heart Sounds: Present: S1 & S2 - Extremities Extremities: no ischemia, No edema - Abdominal General gastrointestinal: soft, non-tender, non-distended, normal bowel sounds, other (PEG tube in place) - Integumentary Integumentary: Present: clear, warm - Psychiatric Psychiatric: other (minimally communicative) - Neurologic Neurologic: other (minimally communicative) Results - Labs CBC & Chem 7: 03/14/18 Unknown 03/14/18 Unknown Labs: Laboratory Last Values WBC 7.8 K/mm3 (4.5-11.0) 03/14/18 Unknown RBC 2.80 M/mm3 (3.65-5.03) L 03/14/18 Unknown Hgb 8.0 gm/dl (10.1-14.3) L D 03/14/18 Unknown Hct 23.7 % (30.3-42.9) L D 03/14/18 Unknown MCV 85 fl (79-97) 03/14/18 Unknown MCH 28 pg (28-32) 03/14/18 Unknown MCHC 34 % (30-34) 03/14/18 Unknown RDW 18.1 % (13.2-15.2) H 03/14/18 Unknown Plt Count 406 K/mm3 (140-440) 03/14/18 Unknown Lymph % (Auto) 13.2 % (13.4-35.0) L 03/14/18 Unknown [place] % (Auto) 8.1 % (0.0-7.3) H 03/14/18 Unknown Eos % (Auto) 1.8 % (0.0-4.3) 03/14/18 Unknown Baso % (Auto) 1.0 % (0.0-1.8) 03/14/18 Unknown Lymph # 1.0 K/mm3 (1.2-5.4) L 03/14/18 Unknown [place] # 0.6 K/mm3 (0.0-0.8) 03/14/18 Unknown Eos # 0.1 K/mm3 (0.0-0.4) 03/14/18 Unknown Baso # 0.1 K/mm3 (0.0-0.1) 03/14/18 Unknown Add Manual Diff Complete 03/06/18 07:16 Total Counted 100 03/06/18 07:16 Seg Neutrophils % 75.9 % (40.0-70.0) H 03/14/18 Unknown Seg Neuts % (Manual) 97.0 % (40.0-70.0) H 03/06/18 07:16 Band Neutrophils % 0 % 03/06/18 07:16 Lymphocytes % (Manual) 2.0 % (13.4-35.0) L 03/06/18 07:16 Reactive Lymphs % (Man) 0 % 03/06/18 07:16 Monocytes % (Manual) 0 % (0.0-7.3) 03/06/18 07:16 Eosinophils % (Manual) 1.0 % (0.0-4.3) 03/06/18 07:16 Basophils % (Manual) 0 % (0.0-1.8) 03/06/18 07:16 Metamyelocytes % 0 % 03/06/18 07:16 Myelocytes % 0 % 03/06/18 07:16 Promyelocytes % 0 % 03/06/18 07:16 Blast Cells % 0 % 03/06/18 07:16 Nucleated RBC % Not Reportable 03/06/18 07:16 Seg Neutrophils # 5.9 K/mm3 (1.8-7.7) 03/14/18 Unknown Seg Neutrophils # Man 16.6 K/mm3 (1.8-7.7) H 03/06/18 07:16 Band Neutrophils # 0.0 K/mm3 03/06/18 07:16 Lymphocytes # (Manual) 0.3 K/mm3 (1.2-5.4) L 03/06/18 07:16 Abs React Lymphs (Man) 0.0 K/mm3 03/06/18 07:16 Monocytes # (Manual) 0.0 K/mm3 (0.0-0.8) 03/06/18 07:16 Eosinophils # (Manual) 0.2 K/mm3 (0.0-0.4) 03/06/18 07:16 Basophils # (Manual) 0.0 K/mm3 (0.0-0.1) 03/06/18 07:16 Metamyelocytes # 0.0 K/mm3 03/06/18 07:16 Myelocytes # 0.0 K/mm3 03/06/18 07:16 Promyelocytes # 0.0 K/mm3 03/06/18 07:16 Blast Cells # 0.0 K/mm3 03/06/18 07:16 WBC Morphology Not Reportable 03/06/18 07:16 Hypersegmented Neuts Not Reportable 03/06/18 07:16 Hyposegmented Neuts Not Reportable 03/06/18 07:16 Hypogranular Neuts Not Reportable 03/06/18 07:16 Smudge Cells Not Reportable 03/06/18 07:16 Toxic Granulation Not Reportable 03/06/18 07:16 Toxic Vacuolation Not Reportable 03/06/18 07:16 Dohle Bodies Not Reportable 03/06/18 07:16 Pelger-Huet Anomaly Not Reportable 03/06/18 07:16 Misti Rods Not Reportable 03/06/18 07:16 Platelet Estimate Cons 03/06/18 07:16 Clumped Platelets Not Reportable 03/06/18 07:16 Plt Clumps, EDTA Not Reportable 03/06/18 07:16 Large Platelets Not Reportable 03/06/18 07:16 Giant Platelets Not Reportable 03/06/18 07:16 Platelet Satelliting Not Reportable 03/06/18 07:16 Plt Morphology Comment Not Reportable 03/06/18 07:16 RBC Morphology Not Reportable 03/06/18 07:16 Dimorphic RBCs Not Reportable 03/06/18 07:16 Polychromasia Not Reportable 03/06/18 07:16 Hypochromasia 1+ 03/06/18 07:16 Poikilocytosis Not Reportable 03/06/18 07:16 Anisocytosis 1+ 03/06/18 07:16 Microcytosis Not Reportable 03/06/18 07:16 Macrocytosis Not Reportable 03/06/18 07:16 Spherocytes Not Reportable 03/06/18 07:16 Pappenheimer Bodies Not Reportable 03/06/18 07:16 Sickle Cells Not Reportable 03/06/18 07:16 Target Cells Not Reportable 03/06/18 07:16 Tear Drop Cells Not Reportable 03/06/18 07:16 Ovalocytes Not Reportable 03/06/18 07:16 Helmet Cells Not Reportable 03/06/18 07:16 Farley-Rushmore Bodies Not Reportable 03/06/18 07:16 Mobile Rings Not Reportable 03/06/18 07:16 [place] Cells Not Reportable 03/06/18 07:16 Bite Cells Not Reportable 03/06/18 07:16 Crenated Cell Not Reportable 03/06/18 07:16 Elliptocytes Not Reportable 03/06/18 07:16 Acanthocytes (Spur) Not Reportable 03/06/18 07:16 Rouleaux Not Reportable 03/06/18 07:16 Hemoglobin C Crystals Not Reportable 03/06/18 07:16 Schistocytes Not Reportable 03/06/18 07:16 Malaria parasites Not Reportable 03/06/18 07:16 ESR > 140.0 mm/Hr (0-20) 03/05/18 10:50 Nickolas Bodies Not Reportable 03/06/18 07:16 Hem Pathologist Commnt No 03/06/18 07:16 PT 16.8 Sec. (12.2-14.9) H 03/14/18 Unknown INR 1.29 (0.87-1.13) H 03/14/18 Unknown APTT 32.6 Sec. (24.2-36.6) 03/13/18 16:02 Sodium 146 mmol/L (137-145) H 03/14/18 Unknown Potassium 3.6 mmol/L (3.6-5.0) 03/14/18 Unknown Chloride 108.0 mmol/L (98-107) H 03/14/18 Unknown Carbon Dioxide 22 mmol/L (22-30) 03/14/18 Unknown Anion Gap 20 mmol/L 03/14/18 Unknown BUN 44 mg/dL (7-17) H 03/14/18 Unknown Creatinine 2.6 mg/dL (0.7-1.2) H 03/14/18 Unknown Estimated GFR 22 ml/min 03/14/18 Unknown BUN/Creatinine Ratio 17 % 03/14/18 Unknown Glucose 115 mg/dL (65-100) H 03/14/18 Unknown POC Glucose 75 (70-105) 03/15/18 07:55 Hemoglobin A1c 5.8 % (4-6) 03/03/18 16:24 Lactic Acid 1.60 mmol/L (0.7-2.0) 03/03/18 15:26 Calcium 7.4 mg/dL (8.4-10.2) L 03/14/18 Unknown Magnesium 1.90 mg/dL (1.7-2.3) 03/13/18 Unknown Total Bilirubin 1.20 mg/dL (0.1-1.2) 03/07/18 05:38 Direct Bilirubin 0.8 mg/dL (0-0.2) H 03/07/18 05:38 Indirect Bilirubin 0.4 mg/dL 03/07/18 05:38 AST 25 units/L (5-40) 03/07/18 05:38 ALT 22 units/L (7-56) 03/07/18 05:38 Alkaline Phosphatase 490 units/L (35-129) H 03/07/18 05:38 Total Creatine Kinase 173 units/L (30-135) H 03/03/18 11:45 C-Reactive Protein 22.60 mg/dL (0.00-1.30) H 03/05/18 10:50 Total Protein 5.9 g/dL (6.3-8.2) L 03/07/18 05:38 Albumin 2.0 g/dL (3.9-5) L 03/07/18 05:38 Albumin/Globulin Ratio 0.5 % 03/07/18 05:38 Urine Color Iza (Yellow) 03/04/18 00:17 Urine Turbidity Hazy (Clear) 03/04/18 00:17 Urine pH 7.0 (5.0-7.0) 03/04/18 00:17 Ur Specific [place] 1.015 (1.003-1.030) 03/04/18 00:17 Urine Protein 100 mg/dl mg/dL (Negative) 03/04/18 00:17 Urine Glucose (UA) 150 mg/dL (Negative) 03/04/18 00:17 Urine Ketones Neg mg/dL (Negative) 03/04/18 00:17 Urine Blood Sm (Negative) 03/04/18 00:17 Urine Nitrite Neg (Negative) 03/04/18 00:17 Urine Bilirubin Neg (Negative) 03/04/18 00:17 Urine Urobilinogen < 2.0 mg/dL (<2.0) 03/04/18 00:17 Ur Leukocyte Esterase Mod (Negative) 03/04/18 00:17 Urine WBC (Auto) 117.0 /HPF (0.0-6.0) H 03/04/18 00:17 Urine RBC (Auto) 22.0 /HPF (0.0-6.0) 03/04/18 00:17 U Epithel Cells (Auto) 2.0 /HPF (0-13.0) 03/04/18 00:17 Urine Bacteria (Auto) 2+ /HPF (Negative) 03/04/18 00:17 Urine WBC Clumps 2+ /HPF 03/04/18 00:17 Urine Mucus Few /HPF 03/04/18 00:17 Random Vancomycin 18.8 ug/mL (0-40.0) 03/15/18 06:55 Hepatitis A IgM Ab Non-reactive (NonReactive) 03/04/18 15:35 Hep Bs Antigen Non-reactive (Negative) 03/04/18 15:35 Hep B Core IgM Ab Non-reactive (NonReactive) 03/04/18 15:35 Hepatitis C Antibody Non-reactive (NonReactive) 03/04/18 15:35 Blood Type B POSITIVE 03/13/18 17:41 Antibody Screen Negative 03/13/18 17:41 Crossmatch See Detail 03/13/18 17:41
[2018-03-15] MEDS: DAKIN'S HALF STRENGTH TP SCH ×3 (08:52→21:41)
[2018-03-15] MEDS: HALDOL PO SCH ×2 (08:53→09:06)
[2018-03-15] MEDS: PROTONIX IV SCH ×3 (08:53→22:37)
[2018-03-15] MEDS: SODIUM CHLORIDE FLUSH SYRINGE 10 ML IV SCH ×3 (08:54→22:38)
[2018-03-15 09:51] LABS: Hematocrit 24.4 % (30.3-42.9)
[2018-03-15] MEDS ORDERED: HALDOL PO SCH (10:00)
--- NOTE | 2018-03-15 12:17 | Progress Note ---
Assessment and Plan surgically statu quo h/h has remained stable post transfusion. will reassess wd on Saturday Selected Entries 03/15/18 07:41 Temperature 98.6 F Pulse Rate 76 Respiratory 20 Rate Blood Pressure 150/62 Laboratory Tests 03/14/18 03/15/18 Unknown 09:31 Hgb 8.0 L D 8.0 L Hct 23.7 L D 24.4 L Objective Vital Signs - 12hr 03/15/18 03/15/18 03/15/18 01:54 05:44 06:14 Temperature 98.9 F Pulse Rate Pulse Rate [ Left Radial] Pulse Rate [ Right Radial] Respiratory 18 18 20 Rate Blood Pressure 88/67 O2 Sat by Pulse Oximetry 03/15/18 03/15/18 07:41 10:00 Temperature 98.6 F Pulse Rate 76 Pulse Rate [ 80 Left Radial] Pulse Rate [ 80 Right Radial] Respiratory 20 18 Rate Blood Pressure 150/62 O2 Sat by Pulse 98 Oximetry - Labs 03/15/18 09:31 03/14/18 Unknown
[2018-03-15] MEDS ORDERED: BANOPHEN PO ONE (13:52)
[2018-03-15] MEDS ORDERED: BENADRYL PO PRN (13:54)
--- NOTE | 2018-03-15 14:11 | Gastroenterology Progress Note ---
Assessment and Plan 1. Hematemesis 2. acute on chronic anemia -no further bleeding episodes. h/h stable after transfusions. discussion per yesterday with pt's daughter was for conservative management as gi bleeding appeared minor and self-limiting. cont PPI. will sign off, please call as needed, change in condition, or questions. Subjective Date of service: 03/15/18 Principal diagnosis: ESRD, hematemesis Interval history: pt seen and examined. no further suspected gi bleeding episodes since initially seen by Gi. no new events overnight Objective - Exam Narrative Exam: Gen: NAD, non-verbal, resting comfortably, does not follow commands CV: RRR Lungs: CTAB Abd: soft, nt, nd, +bs Ext: oriented x 0 - Constitutional Vitals: Temp Pulse Resp BP Pulse Ox 98.5 F 80 20 130/92 98 03/15/18 13:13 03/15/18 13:13 03/15/18 13:13 03/15/18 13:13 03/15/18 13:13 - Labs CBC & Chem 7: 03/15/18 09:31 03/14/18 Unknown Labs: Laboratory Results - last 24 hr 03/14/18 03/14/18 03/15/18 16:46 21:40 06:55 Hgb Hct POC Glucose 124 H 158 H Random Vancomycin 18.8 03/15/18 03/15/18 03/15/18 07:55 09:31 11:26 Hgb 8.0 L Hct 24.4 L POC Glucose 75 94 Random Vancomycin
--- NOTE | 2018-03-15 15:47 | Progress Note ---
Assessment and Plan Severe sepsis: Sacral Decubitus Ulcer: -On vancomycin and zosyn -Surgery on board, s/p surgical debridement of sacral wound on 03/13/18 ESRD on HD: -S/p HD yesterday for UF and clearance -No acute indication for HD today -Assess need for HD on daily basis -Renally dose meds -Strict intake and output -Renal plan d/w Dr Bledsoe -Continue supportive therapy Anemia in CKD: -Epogen with HD -Monitor for need for blood transfusion Swelling in Right upper extremity: -Venous doppler negative for DVT. Subjective Date of service: 03/15/18 Principal diagnosis: ESRD, hematemesis Interval history: Pt awake, difficult to understand speech, no family at bedside Objective - Vital Signs Vital signs: Vital Signs - 12hr 03/15/18 03/15/18 03/15/18 05:44 06:14 07:41 Temperature 98.6 F Pulse Rate 76 Pulse Rate [ Left Radial] Pulse Rate [ Right Radial] Respiratory 18 20 20 Rate Blood Pressure 150/62 O2 Sat by Pulse 98 Oximetry 03/15/18 03/15/18 10:00 13:13 Temperature 98.5 F Pulse Rate 80 Pulse Rate [ 80 Left Radial] Pulse Rate [ 80 Right Radial] Respiratory 18 20 Rate Blood Pressure 130/92 O2 Sat by Pulse 98 Oximetry - General Appearance General appearance: well-developed (no acute distress) EENT: ATNC Neck: no JVD Respiratory: Present: Other (Lung sounds decreased bilaterally, unlabored) Cardiology: regular, S1S2, other (ACCESS: Left AVF with + thrill and bruit) Gastrointestinal: normoactive bowel sounds, no tenderness Integumentary: warm and dry Neurologic: other (awake, talks, but difficulty understanding speech) Musculoskeletal: other (no edema to both lower extremities) - Lab 03/15/18 09:31 03/14/18 Unknown Most recent lab results Calcium 7.4 mg/dL (8.4-10.2) L 03/14/18 Unknown Magnesium 1.90 mg/dL (1.7-2.3) 03/13/18 Unknown
[2018-03-15] MEDS: COGENTIN PO SCH (22:37)
[2018-03-16] MEDS: ZOSYN/NS 2.25 GM/50ML 2.25 GM/50 ML BAG IV SCH ×3 (06:15→22:51)
[2018-03-16 07:18] LABS: Basophils # (Auto) 0.1 K/mm3 (0.0-0.1); Basophils % (Auto) 0.8 % (0.0-1.8); Eosinophils # (Auto) 0.2 K/mm3 (0.0-0.4); Eosinophils % (Auto) 2.2 % (0.0-4.3); Hematocrit 25.4 % (30.3-42.9); Hemoglobin 8.4 gm/dl (10.1-14.3); Lymphocytes # (Auto) 1.3 K/mm3 (1.2-5.4); Lymphocytes % (Auto) 14.6 % (13.4-35.0); Mean Corpuscular HGB Conc 33 % (30-34); Mean Corpuscular Hemoglobin 29 pg (28-32); Mean Corpuscular Volume 86 fl (79-97); Monocytes # (Auto) 0.7 K/mm3 (0.0-0.8); Monocytes % (Auto) 8.3 % (0.0-7.3); Platelet Count 422 K/mm3 (140-440); Red Blood Count 2.95 M/mm3 (3.65-5.03); Red Cell Distribution Width 19.7 % (13.2-15.2)
[2018-03-16 07:40] LABS: Calcium 7.2 mg/dL (8.4-10.2)
[2018-03-16] MEDS: HALDOL PO SCH (09:04)
[2018-03-16] MEDS: SODIUM CHLORIDE FLUSH SYRINGE 10 ML IV SCH ×2 (09:06→22:53)
[2018-03-16] MEDS: PROTONIX PO SCH ×2 (09:07→22:53)
[2018-03-16] MEDS: NACL 0.9% 1000 ML 1,000 ML IV SCH (09:07)
--- NOTE | 2018-03-16 10:16 | Progress Note ---
Assessment and Plan Severe sepsis: Sacral Decubitus Ulcer: -On vancomycin and zosyn -Surgery on board, s/p surgical debridement of sacral wound on 03/13/18 ESRD on HD: -No acute indication for HD today -HD tomorrow for UF and clearance -Assess need for HD on daily basis -Renally dose meds -Strict intake and output -Renal plan d/w Dr Bledsoe -Continue supportive therapy Anemia in CKD: -Epogen with HD -Monitor for need for blood transfusion Swelling in Right upper extremity: -Venous doppler negative for DVT. Subjective Date of service: 03/16/18 Principal diagnosis: ESRD, hematemesis Interval history: Pt awake, difficult to understand speech, no family at bedside, nursing staff changing sacral wound dressing Objective - Vital Signs Vital signs: Vital Signs - 12hr 03/16/18 03/16/18 03/16/18 02:25 02:26 07:59 Temperature 98.3 F 97.3 F L Pulse Rate 75 75 92 H Respiratory 20 20 Rate Blood Pressure 159/68 Blood Pressure 133/74 [Right] O2 Sat by Pulse 96 96 96 Oximetry - General Appearance General appearance: well-developed (no acute distress) EENT: ATNC Neck: no JVD Respiratory: Present: Other (Lung sounds decreased bilaterally, unlabored) Cardiology: regular, S1S2, other (ACCESS: Left AVF with positive thrill and bruit ) Gastrointestinal: normoactive bowel sounds Integumentary: warm and dry (sacral wound with dressing in place) Neurologic: other (awake, difficulty understanding speech) Musculoskeletal: other (no edema to both lower extremities) - Lab 03/16/18 06:38 03/16/18 06:38 Most recent lab results Calcium 7.2 mg/dL (8.4-10.2) L 03/16/18 06:38 Magnesium 1.90 mg/dL (1.7-2.3) 03/13/18 Unknown
[2018-03-16] MEDS: DAKIN'S HALF STRENGTH TP SCH ×2 (12:32→22:54)
[2018-03-16] MEDS ORDERED: TYLENOL PO PRN (14:07)
[2018-03-16] MEDS: TYLENOL PO PRN (14:10)
--- NOTE | 2018-03-16 16:32 | Progress Note ---
Assessment and Plan Assessment and plan: --Stage IV Sacral decubitus ulcer: present on admission Had extensive deep surgical debridement per surgery 03/13/2018 s/p surgical debridement, 03/05/2018 on Vanco Zosyn total 6 weeks per ID Stop date 04/16/2018, Patient had PICC line --GI bleeding/with severe anemia, Received 4 units of PRBC, no new episodes, GI following --Severe anemia; Hb 4.0, due to GI bleeding/deep debridement Received total 4 units PRBC, Hb improved to 8.4, monitor H&H , GI following --Metabolic Encephalopathy acute on chronic; back to baseline due to sepsis, Continue IV fluids and IV antibiotics --Sepsis:Secondary to infected decubitus ulcer and bacteremia, on antibiotics --Hyponatremia: Resolved -- ESRD on hemodialysis;HD per scheduled, nephrology following --Hypertension; moderate control on antihypertensives and PRN meds --Moderate to severe protein calorie Malnutrition ; present on admission dietary supplements supportive care --Dysphagia;s/p MBS, mechanical soft per speech --DVT prophylaxis; SCDs --Physical therapy, occupational therapy as tolerated --Full code status --DC planning. per Case management when medically stable Plan of care is reviewed with the patient's family member and the nurse History Interval history: Patient seen and examined medical records reviewed Patient is more alert today, involuntary mouth movements ,possible TD New events reported by nursing Vital signs reviewed Hospitalist Physical - Constitutional Vitals: Temp Pulse Resp BP Pulse Ox 98.5 F 85 20 167/65 96 03/16/18 14:04 03/16/18 14:04 03/16/18 14:04 03/16/18 14:04 03/16/18 14:04 General appearance: Present: no acute distress, cachectic, other (involuntary movements of the lips/? TD) - EENT Eyes: Present: PERRL, EOM intact - Neck Neck: Present: supple, normal ROM - Respiratory Respiratory effort: normal Respiratory: bilateral: diminished, negative: rales, rhonchi, wheezing - Cardiovascular Rhythm: regular Heart Sounds: Present: S1 & S2 - Extremities Extremities: no ischemia Extremity abnormal: edema - Abdominal General gastrointestinal: soft, non-tender, non-distended, normal bowel sounds - Integumentary Integumentary: Present: erythema (stage IV sacral decubitus ulcer/post surgical debridement) - Psychiatric Psychiatric: appropriate mood/affect, agitated, other (confused at times) - Neurologic Neurologic: moves all extremities, other (residual weakness/bedbound status) Results - Labs CBC & Chem 7: 03/16/18 06:38 03/16/18 06:38 Labs: Laboratory Last Values WBC 8.9 K/mm3 (4.5-11.0) 03/16/18 06:38 RBC 2.95 M/mm3 (3.65-5.03) L 03/16/18 06:38 Hgb 8.4 gm/dl (10.1-14.3) L 03/16/18 06:38 Hct 25.4 % (30.3-42.9) L 03/16/18 06:38 MCV 86 fl (79-97) 03/16/18 06:38 MCH 29 pg (28-32) 03/16/18 06:38 MCHC 33 % (30-34) 03/16/18 06:38 RDW 19.7 % (13.2-15.2) H 03/16/18 06:38 Plt Count 422 K/mm3 (140-440) 03/16/18 06:38 Lymph % (Auto) 14.6 % (13.4-35.0) 03/16/18 06:38 Tyler % (Auto) 8.3 % (0.0-7.3) H 03/16/18 06:38 Eos % (Auto) 2.2 % (0.0-4.3) 03/16/18 06:38 Baso % (Auto) 0.8 % (0.0-1.8) 03/16/18 06:38 Lymph # 1.3 K/mm3 (1.2-5.4) 03/16/18 06:38 Tyler # 0.7 K/mm3 (0.0-0.8) 03/16/18 06:38 Eos # 0.2 K/mm3 (0.0-0.4) 03/16/18 06:38 Baso # 0.1 K/mm3 (0.0-0.1) 03/16/18 06:38 Add Manual Diff Complete 03/06/18 07:16 Total Counted 100 03/06/18 07:16 Seg Neutrophils % 74.1 % (40.0-70.0) H 03/16/18 06:38 Seg Neuts % (Manual) 97.0 % (40.0-70.0) H 03/06/18 07:16 Band Neutrophils % 0 % 03/06/18 07:16 Lymphocytes % (Manual) 2.0 % (13.4-35.0) L 03/06/18 07:16 Reactive Lymphs % (Man) 0 % 03/06/18 07:16 Monocytes % (Manual) 0 % (0.0-7.3) 03/06/18 07:16 Eosinophils % (Manual) 1.0 % (0.0-4.3) 03/06/18 07:16 Basophils % (Manual) 0 % (0.0-1.8) 03/06/18 07:16 Metamyelocytes % 0 % 03/06/18 07:16 Myelocytes % 0 % 03/06/18 07:16 Promyelocytes % 0 % 03/06/18 07:16 Blast Cells % 0 % 03/06/18 07:16 Nucleated RBC % Not Reportable 03/06/18 07:16 Seg Neutrophils # 6.6 K/mm3 (1.8-7.7) 03/16/18 06:38 Seg Neutrophils # Man 16.6 K/mm3 (1.8-7.7) H 03/06/18 07:16 Band Neutrophils # 0.0 K/mm3 03/06/18 07:16 Lymphocytes # (Manual) 0.3 K/mm3 (1.2-5.4) L 03/06/18 07:16 Abs React Lymphs (Man) 0.0 K/mm3 03/06/18 07:16 Monocytes # (Manual) 0.0 K/mm3 (0.0-0.8) 03/06/18 07:16 Eosinophils # (Manual) 0.2 K/mm3 (0.0-0.4) 03/06/18 07:16 Basophils # (Manual) 0.0 K/mm3 (0.0-0.1) 03/06/18 07:16 Metamyelocytes # 0.0 K/mm3 03/06/18 07:16 Myelocytes # 0.0 K/mm3 03/06/18 07:16 Promyelocytes # 0.0 K/mm3 03/06/18 07:16 Blast Cells # 0.0 K/mm3 03/06/18 07:16 WBC Morphology Not Reportable 03/06/18 07:16 Hypersegmented Neuts Not Reportable 03/06/18 07:16 Hyposegmented Neuts Not Reportable 03/06/18 07:16 Hypogranular Neuts Not Reportable 03/06/18 07:16 Smudge Cells Not Reportable 03/06/18 07:16 Toxic Granulation Not Reportable 03/06/18 07:16 Toxic Vacuolation Not Reportable 03/06/18 07:16 Dohle Bodies Not Reportable 03/06/18 07:16 Pelger-Huet Anomaly Not Reportable 03/06/18 07:16 Misti Rods Not Reportable 03/06/18 07:16 Platelet Estimate Cons 03/06/18 07:16 Clumped Platelets Not Reportable 03/06/18 07:16 Plt Clumps, EDTA Not Reportable 03/06/18 07:16 Large Platelets Not Reportable 03/06/18 07:16 Giant Platelets Not Reportable 03/06/18 07:16 Platelet Satelliting Not Reportable 03/06/18 07:16 Plt Morphology Comment Not Reportable 03/06/18 07:16 RBC Morphology Not Reportable 03/06/18 07:16 Dimorphic RBCs Not Reportable 03/06/18 07:16 Polychromasia Not Reportable 03/06/18 07:16 Hypochromasia 1+ 03/06/18 07:16 Poikilocytosis Not Reportable 03/06/18 07:16 Anisocytosis 1+ 03/06/18 07:16 Microcytosis Not Reportable 03/06/18 07:16 Macrocytosis Not Reportable 03/06/18 07:16 Spherocytes Not Reportable 03/06/18 07:16 Pappenheimer Bodies Not Reportable 03/06/18 07:16 Sickle Cells Not Reportable 03/06/18 07:16 Target Cells Not Reportable 03/06/18 07:16 Tear Drop Cells Not Reportable 03/06/18 07:16 Ovalocytes Not Reportable 03/06/18 07:16 Helmet Cells Not Reportable 03/06/18 07:16 Farley-[place] Bodies Not Reportable 03/06/18 07:16 [place] Rings Not Reportable 03/06/18 07:16 Burdett Cells Not Reportable 03/06/18 07:16 Bite Cells Not Reportable 03/06/18 07:16 Crenated Cell Not Reportable 03/06/18 07:16 Elliptocytes Not Reportable 03/06/18 07:16 Acanthocytes (Spur) Not Reportable 03/06/18 07:16 Rouleaux Not Reportable 03/06/18 07:16 Hemoglobin C Crystals Not Reportable 03/06/18 07:16 Schistocytes Not Reportable 03/06/18 07:16 Malaria parasites Not Reportable 03/06/18 07:16 ESR > 140.0 mm/Hr (0-20) 03/05/18 10:50 Nickolas Bodies Not Reportable 03/06/18 07:16 Hem Pathologist Commnt No 03/06/18 07:16 PT 16.8 Sec. (12.2-14.9) H 03/14/18 Unknown INR 1.29 (0.87-1.13) H 03/14/18 Unknown APTT 32.6 Sec. (24.2-36.6) 03/13/18 16:02 Sodium 138 mmol/L (137-145) D 03/16/18 06:38 Potassium 3.6 mmol/L (3.6-5.0) 03/16/18 06:38 Chloride 100.2 mmol/L (98-107) 03/16/18 06:38 Carbon Dioxide 23 mmol/L (22-30) 03/16/18 06:38 Anion Gap 18 mmol/L 03/16/18 06:38 BUN 25 mg/dL (7-17) H 03/16/18 06:38 Creatinine 2.6 mg/dL (0.7-1.2) H 03/16/18 06:38 Estimated GFR 22 ml/min 03/16/18 06:38 BUN/Creatinine Ratio 10 % 03/16/18 06:38 Glucose 62 mg/dL (65-100) L 03/16/18 06:38 POC Glucose 102 (70-105) 03/16/18 12:17 Hemoglobin A1c 5.8 % (4-6) 03/03/18 16:24 Lactic Acid 1.60 mmol/L (0.7-2.0) 03/03/18 15:26 Calcium 7.2 mg/dL (8.4-10.2) L 03/16/18 06:38 Magnesium 1.90 mg/dL (1.7-2.3) 03/13/18 Unknown Total Bilirubin 1.20 mg/dL (0.1-1.2) 03/07/18 05:38 Direct Bilirubin 0.8 mg/dL (0-0.2) H 03/07/18 05:38 Indirect Bilirubin 0.4 mg/dL 03/07/18 05:38 AST 25 units/L (5-40) 03/07/18 05:38 ALT 22 units/L (7-56) 03/07/18 05:38 Alkaline Phosphatase 490 units/L (35-129) H 03/07/18 05:38 Total Creatine Kinase 173 units/L (30-135) H 03/03/18 11:45 C-Reactive Protein 22.60 mg/dL (0.00-1.30) H 03/05/18 10:50 Total Protein 5.9 g/dL (6.3-8.2) L 03/07/18 05:38 Albumin 2.0 g/dL (3.9-5) L 03/07/18 05:38 Albumin/Globulin Ratio 0.5 % 03/07/18 05:38 Urine Color Iza (Yellow) 03/04/18 00:17 Urine Turbidity Hazy (Clear) 03/04/18 00:17 Urine pH 7.0 (5.0-7.0) 03/04/18 00:17 Ur Specific [place] 1.015 (1.003-1.030) 03/04/18 00:17 Urine Protein 100 mg/dl mg/dL (Negative) 03/04/18 00:17 Urine Glucose (UA) 150 mg/dL (Negative) 03/04/18 00:17 Urine Ketones Neg mg/dL (Negative) 03/04/18 00:17 Urine Blood Sm (Negative) 03/04/18 00:17 Urine Nitrite Neg (Negative) 03/04/18 00:17 Urine Bilirubin Neg (Negative) 03/04/18 00:17 Urine Urobilinogen < 2.0 mg/dL (<2.0) 03/04/18 00:17 Ur Leukocyte Esterase Mod (Negative) 03/04/18 00:17 Urine WBC (Auto) 117.0 /HPF (0.0-6.0) H 03/04/18 00:17 Urine RBC (Auto) 22.0 /HPF (0.0-6.0) 03/04/18 00:17 U Epithel Cells (Auto) 2.0 /HPF (0-13.0) 03/04/18 00:17 Urine Bacteria (Auto) 2+ /HPF (Negative) 03/04/18 00:17 Urine WBC Clumps 2+ /HPF 03/04/18 00:17 Urine Mucus Few /HPF 03/04/18 00:17 Random Vancomycin 18.8 ug/mL (0-40.0) 03/15/18 06:55 Hepatitis A IgM Ab Non-reactive (NonReactive) 03/04/18 15:35 Hep Bs Antigen Non-reactive (Negative) 03/04/18 15:35 Hep B Core IgM Ab Non-reactive (NonReactive) 03/04/18 15:35 Hepatitis C Antibody Non-reactive (NonReactive) 03/04/18 15:35 Blood Type B POSITIVE 03/13/18 17:41 Antibody Screen Negative 03/13/18 17:41 Crossmatch See Detail 03/13/18 17:41
--- NOTE | 2018-03-16 21:51 | Progress Note ---
Assessment and Plan Pt sleeping stable from gen surg perspective uncontrolled HTN to inspect wd in am Selected Entries 03/16/18 03/16/18 10:00 19:37 Temperature 97.7 F Pulse Rate [ 92 H Right Radial] Respiratory 18 Rate Blood Pressure 190/81 Laboratory Tests 03/15/18 03/16/18 03/16/18 09:31 06:38 06:38 WBC 8.9 Hgb 8.0 L 8.4 L Hct 24.4 L 25.4 L Sodium 138 D Potassium 3.6 Chloride 100.2 BUN 25 H Creatinine 2.6 H Objective Vital Signs - 12hr 03/16/18 03/16/18 03/16/18 10:00 14:04 19:37 Temperature 98.5 F 97.7 F Pulse Rate 85 88 Pulse Rate [ 92 H Right Radial] Respiratory 18 20 18 Rate Blood Pressure 167/65 190/81 O2 Sat by Pulse 96 96 99 Oximetry - Labs 03/16/18 06:38 03/16/18 06:38 Diabetes panel 03/16/18 Range/Units 06:38 Sodium 138 D (137-145) mmol/L Potassium 3.6 (3.6-5.0) mmol/L Chloride 100.2 (98-107) mmol/L Carbon Dioxide 23 (22-30) mmol/L BUN 25 H (7-17) mg/dL Creatinine 2.6 H (0.7-1.2) mg/dL Glucose 62 L (65-100) mg/dL Calcium 7.2 L (8.4-10.2) mg/dL Calcium panel 03/16/18 Range/Units 06:38 Calcium 7.2 L (8.4-10.2) mg/dL Pituitary panel 03/16/18 Range/Units 06:38 Sodium 138 D (137-145) mmol/L Potassium 3.6 (3.6-5.0) mmol/L Chloride 100.2 (98-107) mmol/L Carbon Dioxide 23 (22-30) mmol/L BUN 25 H (7-17) mg/dL Creatinine 2.6 H (0.7-1.2) mg/dL Glucose 62 L (65-100) mg/dL Calcium 7.2 L (8.4-10.2) mg/dL Adrenal panel 03/16/18 Range/Units 06:38 Sodium 138 D (137-145) mmol/L Potassium 3.6 (3.6-5.0) mmol/L Chloride 100.2 (98-107) mmol/L Carbon Dioxide 23 (22-30) mmol/L BUN 25 H (7-17) mg/dL Creatinine 2.6 H (0.7-1.2) mg/dL Glucose 62 L (65-100) mg/dL Calcium 7.2 L (8.4-10.2) mg/dL
[2018-03-16] MEDS: COGENTIN PO SCH (22:53)
[2018-03-17] MEDS: ZOSYN/NS 2.25 GM/50ML 2.25 GM/50 ML BAG IV SCH ×3 (05:54→23:09)
[2018-03-17 07:24] LABS: Basophils # (Auto) 0.1 K/mm3 (0.0-0.1); Basophils % (Auto) 0.8 % (0.0-1.8); Eosinophils # (Auto) 0.2 K/mm3 (0.0-0.4); Eosinophils % (Auto) 2.6 % (0.0-4.3); Hematocrit 22.8 % (30.3-42.9); Hemoglobin 7.5 gm/dl (10.1-14.3); Lymphocytes # (Auto) 1.3 K/mm3 (1.2-5.4); Lymphocytes % (Auto) 17.8 % (13.4-35.0); Mean Corpuscular HGB Conc 33 % (30-34); Mean Corpuscular Hemoglobin 28 pg (28-32); Mean Corpuscular Volume 86 fl (79-97); Monocytes # (Auto) 0.7 K/mm3 (0.0-0.8); Monocytes % (Auto) 10.1 % (0.0-7.3); Platelet Count 379 K/mm3 (140-440); Red Blood Count 2.65 M/mm3 (3.65-5.03)
[2018-03-17 07:29] LABS: Red Cell Distribution Width 20.3 % (13.2-15.2)
[2018-03-17 07:42] LABS: Calcium 6.6 mg/dL (8.4-10.2)
[2018-03-17] MEDS: HALDOL PO SCH (10:04)
[2018-03-17] MEDS: PROTONIX PO SCH (10:05)
--- NOTE | 2018-03-17 10:42 | Progress Note ---
Assessment and Plan Pt surgically status quo awaiting ET nurse for packing removal. will discuss with her Selected Entries 03/17/18 02:04 Temperature 97.6 F Pulse Rate 78 Blood Pressure 162/67 Laboratory Tests 03/16/18 03/17/18 06:38 06:55 WBC 7.2 Hgb 8.4 L 7.5 L Hct 25.4 L 22.8 L Objective Vital Signs - 12hr 03/17/18 02:04 Temperature 97.6 F Pulse Rate 78 Respiratory 18 Rate Blood Pressure 162/67 O2 Sat by Pulse 99 Oximetry - Labs 03/17/18 06:55 03/17/18 06:55 Diabetes panel 03/17/18 Range/Units 06:55 Sodium 143 (137-145) mmol/L Potassium 3.1 L (3.6-5.0) mmol/L Chloride 107.8 H (98-107) mmol/L Carbon Dioxide 22 (22-30) mmol/L BUN 28 H (7-17) mg/dL Creatinine 3.1 H (0.7-1.2) mg/dL Glucose 72 (65-100) mg/dL Calcium 6.6 L (8.4-10.2) mg/dL Calcium panel 03/17/18 Range/Units 06:55 Calcium 6.6 L (8.4-10.2) mg/dL Pituitary panel 03/17/18 Range/Units 06:55 Sodium 143 (137-145) mmol/L Potassium 3.1 L (3.6-5.0) mmol/L Chloride 107.8 H (98-107) mmol/L Carbon Dioxide 22 (22-30) mmol/L BUN 28 H (7-17) mg/dL Creatinine 3.1 H (0.7-1.2) mg/dL Glucose 72 (65-100) mg/dL Calcium 6.6 L (8.4-10.2) mg/dL Adrenal panel 03/17/18 Range/Units 06:55 Sodium 143 (137-145) mmol/L Potassium 3.1 L (3.6-5.0) mmol/L Chloride 107.8 H (98-107) mmol/L Carbon Dioxide 22 (22-30) mmol/L BUN 28 H (7-17) mg/dL Creatinine 3.1 H (0.7-1.2) mg/dL Glucose 72 (65-100) mg/dL Calcium 6.6 L (8.4-10.2) mg/dL
[2018-03-17] MEDS: DAKIN'S HALF STRENGTH TP SCH (11:05)
[2018-03-17] MEDS: SODIUM CHLORIDE FLUSH SYRINGE 10 ML IV SCH (11:06)
--- NOTE | 2018-03-17 12:06 | Progress Note ---
Assessment and Plan Assessment and plan: --Stage IV Sacral decubitus ulcer: present on admission Had extensive deep surgical debridement per surgery 03/13/2018 s/p surgical debridement, 03/05/2018 on Vanco Zosyn total 6 weeks per ID Stop date 04/16/2018, Patient had PICC line --GI bleeding/with severe anemia, Received 4 units of PRBC, no new episodes, GI following --Severe anemia; Hb 4.0, due to GI bleeding/deep debridement Received total 4 units PRBC, Hb improved to 8.4, monitor H&H , GI following --Metabolic Encephalopathy acute on chronic; back to baseline due to sepsis, Continue IV fluids and IV antibiotics --Sepsis:Secondary to infected decubitus ulcer and bacteremia, on antibiotics --Hyponatremia: Resolved -- ESRD on hemodialysis;HD per scheduled, nephrology following --Hypertension; moderate control on antihypertensives and PRN meds --Moderate to severe protein calorie Malnutrition ; present on admission dietary supplements supportive care --Dysphagia;s/p MBS, mechanical soft per speech --DVT prophylaxis; SCDs --Physical therapy, occupational therapy as tolerated --Full code status --DC planning. per Case management when medically stable Disposition; long-term antibiotics Vanco Zosyn stop date 04/16/2018 per ID DC to fdc when cleared by nephrology/surgery History Interval history: Patient seen and examined medical records reviewed No new events reported by the nursing staff Receiving hemodialysis today at bedside Alert and awake responding to simple questions Vital signs reviewed Hospitalist Physical - Constitutional Vitals: Temp Pulse Resp BP Pulse Ox 97.6 F 78 18 162/67 99 03/17/18 02:04 03/17/18 10:00 03/17/18 10:00 03/17/18 02:04 03/17/18 10:00 General appearance: Present: no acute distress, cachectic, other (involuntary movements of the lips/? TD) - EENT Eyes: Present: PERRL, EOM intact - Neck Neck: Present: supple, normal ROM - Respiratory Respiratory effort: normal Respiratory: bilateral: CTA, diminished, negative: rales, rhonchi, wheezing - Cardiovascular Rhythm: regular Heart Sounds: Present: S1 & S2 - Extremities Extremities: no ischemia, No edema - Abdominal General gastrointestinal: soft, non-tender, non-distended, normal bowel sounds - Integumentary Integumentary: Present: clear, warm, erythema (stage IV sacral decubitus ulcer, dressing in place) - Psychiatric Psychiatric: agitated, other (minimally communicative) - Neurologic Neurologic: other (residual weakness, minimally communicative) Results - Labs CBC & Chem 7: 03/17/18 06:55 03/17/18 06:55 Labs: Laboratory Last Values WBC 7.2 K/mm3 (4.5-11.0) 03/17/18 06:55 RBC 2.65 M/mm3 (3.65-5.03) L 03/17/18 06:55 Hgb 7.5 gm/dl (10.1-14.3) L 03/17/18 06:55 Hct 22.8 % (30.3-42.9) L 03/17/18 06:55 MCV 86 fl (79-97) 03/17/18 06:55 MCH 28 pg (28-32) 03/17/18 06:55 MCHC 33 % (30-34) 03/17/18 06:55 RDW 20.3 % (13.2-15.2) H 03/17/18 06:55 Plt Count 379 K/mm3 (140-440) 03/17/18 06:55 Lymph % (Auto) 17.8 % (13.4-35.0) 03/17/18 06:55 Rains % (Auto) 10.1 % (0.0-7.3) H 03/17/18 06:55 Eos % (Auto) 2.6 % (0.0-4.3) 03/17/18 06:55 Baso % (Auto) 0.8 % (0.0-1.8) 03/17/18 06:55 Lymph # 1.3 K/mm3 (1.2-5.4) 03/17/18 06:55 Rains # 0.7 K/mm3 (0.0-0.8) 03/17/18 06:55 Eos # 0.2 K/mm3 (0.0-0.4) 03/17/18 06:55 Baso # 0.1 K/mm3 (0.0-0.1) 03/17/18 06:55 Add Manual Diff Complete 03/06/18 07:16 Total Counted 100 03/06/18 07:16 Seg Neutrophils % 68.7 % (40.0-70.0) 03/17/18 06:55 Seg Neuts % (Manual) 97.0 % (40.0-70.0) H 03/06/18 07:16 Band Neutrophils % 0 % 03/06/18 07:16 Lymphocytes % (Manual) 2.0 % (13.4-35.0) L 03/06/18 07:16 Reactive Lymphs % (Man) 0 % 03/06/18 07:16 Monocytes % (Manual) 0 % (0.0-7.3) 03/06/18 07:16 Eosinophils % (Manual) 1.0 % (0.0-4.3) 03/06/18 07:16 Basophils % (Manual) 0 % (0.0-1.8) 03/06/18 07:16 Metamyelocytes % 0 % 03/06/18 07:16 Myelocytes % 0 % 03/06/18 07:16 Promyelocytes % 0 % 03/06/18 07:16 Blast Cells % 0 % 03/06/18 07:16 Nucleated RBC % Not Reportable 03/06/18 07:16 Seg Neutrophils # 4.9 K/mm3 (1.8-7.7) 03/17/18 06:55 Seg Neutrophils # Man 16.6 K/mm3 (1.8-7.7) H 03/06/18 07:16 Band Neutrophils # 0.0 K/mm3 03/06/18 07:16 Lymphocytes # (Manual) 0.3 K/mm3 (1.2-5.4) L 03/06/18 07:16 Abs React Lymphs (Man) 0.0 K/mm3 03/06/18 07:16 Monocytes # (Manual) 0.0 K/mm3 (0.0-0.8) 03/06/18 07:16 Eosinophils # (Manual) 0.2 K/mm3 (0.0-0.4) 03/06/18 07:16 Basophils # (Manual) 0.0 K/mm3 (0.0-0.1) 03/06/18 07:16 Metamyelocytes # 0.0 K/mm3 03/06/18 07:16 Myelocytes # 0.0 K/mm3 03/06/18 07:16 Promyelocytes # 0.0 K/mm3 03/06/18 07:16 Blast Cells # 0.0 K/mm3 03/06/18 07:16 WBC Morphology Not Reportable 03/06/18 07:16 Hypersegmented Neuts Not Reportable 03/06/18 07:16 Hyposegmented Neuts Not Reportable 03/06/18 07:16 Hypogranular Neuts Not Reportable 03/06/18 07:16 Smudge Cells Not Reportable 03/06/18 07:16 Toxic Granulation Not Reportable 03/06/18 07:16 Toxic Vacuolation Not Reportable 03/06/18 07:16 Dohle Bodies Not Reportable 03/06/18 07:16 Pelger-Huet Anomaly Not Reportable 03/06/18 07:16 Misti Rods Not Reportable 03/06/18 07:16 Platelet Estimate Cons 03/06/18 07:16 Clumped Platelets Not Reportable 03/06/18 07:16 Plt Clumps, EDTA Not Reportable 03/06/18 07:16 Large Platelets Not Reportable 03/06/18 07:16 Giant Platelets Not Reportable 03/06/18 07:16 Platelet Satelliting Not Reportable 03/06/18 07:16 Plt Morphology Comment Not Reportable 03/06/18 07:16 RBC Morphology Not Reportable 03/06/18 07:16 Dimorphic RBCs Not Reportable 03/06/18 07:16 Polychromasia Not Reportable 03/06/18 07:16 Hypochromasia 1+ 03/06/18 07:16 Poikilocytosis Not Reportable 03/06/18 07:16 Anisocytosis 1+ 03/06/18 07:16 Microcytosis Not Reportable 03/06/18 07:16 Macrocytosis Not Reportable 03/06/18 07:16 Spherocytes Not Reportable 03/06/18 07:16 Pappenheimer Bodies Not Reportable 03/06/18 07:16 Sickle Cells Not Reportable 03/06/18 07:16 Target Cells Not Reportable 03/06/18 07:16 Tear Drop Cells Not Reportable 03/06/18 07:16 Ovalocytes Not Reportable 03/06/18 07:16 Helmet Cells Not Reportable 03/06/18 07:16 [place] Bodies Not Reportable 03/06/18 07:16 [place] Rings Not Reportable 03/06/18 07:16 [place] Cells Not Reportable 03/06/18 07:16 Bite Cells Not Reportable 03/06/18 07:16 Crenated Cell Not Reportable 03/06/18 07:16 Elliptocytes Not Reportable 03/06/18 07:16 Acanthocytes (Spur) Not Reportable 03/06/18 07:16 Rouleaux Not Reportable 03/06/18 07:16 Hemoglobin C Crystals Not Reportable 03/06/18 07:16 Schistocytes Not Reportable 03/06/18 07:16 Malaria parasites Not Reportable 03/06/18 07:16 ESR > 140.0 mm/Hr (0-20) 03/05/18 10:50 Nickolas Bodies Not Reportable 03/06/18 07:16 Hem Pathologist Commnt No 03/06/18 07:16 PT 16.8 Sec. (12.2-14.9) H 03/14/18 Unknown INR 1.29 (0.87-1.13) H 03/14/18 Unknown APTT 32.6 Sec. (24.2-36.6) 03/13/18 16:02 Sodium 143 mmol/L (137-145) 03/17/18 06:55 Potassium 3.1 mmol/L (3.6-5.0) L 03/17/18 06:55 Chloride 107.8 mmol/L (98-107) H 03/17/18 06:55 Carbon Dioxide 22 mmol/L (22-30) 03/17/18 06:55 Anion Gap 16 mmol/L 03/17/18 06:55 BUN 28 mg/dL (7-17) H 03/17/18 06:55 Creatinine 3.1 mg/dL (0.7-1.2) H 03/17/18 06:55 Estimated GFR 18 ml/min 03/17/18 06:55 BUN/Creatinine Ratio 9 % 03/17/18 06:55 Glucose 72 mg/dL (65-100) 03/17/18 06:55 POC Glucose 145 (70-105) H 03/17/18 11:34 Hemoglobin A1c 5.8 % (4-6) 03/03/18 16:24 Lactic Acid 1.60 mmol/L (0.7-2.0) 03/03/18 15:26 Calcium 6.6 mg/dL (8.4-10.2) L 03/17/18 06:55 Magnesium 1.90 mg/dL (1.7-2.3) 03/13/18 Unknown Total Bilirubin 1.20 mg/dL (0.1-1.2) 03/07/18 05:38 Direct Bilirubin 0.8 mg/dL (0-0.2) H 03/07/18 05:38 Indirect Bilirubin 0.4 mg/dL 03/07/18 05:38 AST 25 units/L (5-40) 03/07/18 05:38 ALT 22 units/L (7-56) 03/07/18 05:38 Alkaline Phosphatase 490 units/L (35-129) H 03/07/18 05:38 Total Creatine Kinase 173 units/L (30-135) H 03/03/18 11:45 C-Reactive Protein 22.60 mg/dL (0.00-1.30) H 03/05/18 10:50 Total Protein 5.9 g/dL (6.3-8.2) L 03/07/18 05:38 Albumin 2.0 g/dL (3.9-5) L 03/07/18 05:38 Albumin/Globulin Ratio 0.5 % 03/07/18 05:38 Urine Color Iza (Yellow) 03/04/18 00:17 Urine Turbidity Hazy (Clear) 03/04/18 00:17 Urine pH 7.0 (5.0-7.0) 03/04/18 00:17 Ur Specific [place] 1.015 (1.003-1.030) 03/04/18 00:17 Urine Protein 100 mg/dl mg/dL (Negative) 03/04/18 00:17 Urine Glucose (UA) 150 mg/dL (Negative) 03/04/18 00:17 Urine Ketones Neg mg/dL (Negative) 03/04/18 00:17 Urine Blood Sm (Negative) 03/04/18 00:17 Urine Nitrite Neg (Negative) 03/04/18 00:17 Urine Bilirubin Neg (Negative) 03/04/18 00:17 Urine Urobilinogen < 2.0 mg/dL (<2.0) 03/04/18 00:17 Ur Leukocyte Esterase Mod (Negative) 05/29/18 00:17 Urine WBC (Auto) 117.0 /HPF (0.0-6.0) H 03/04/18 00:17 Urine RBC (Auto) 22.0 /HPF (0.0-6.0) 03/04/18 00:17 U Epithel Cells (Auto) 2.0 /HPF (0-13.0) 03/04/18 00:17 Urine Bacteria (Auto) 2+ /HPF (Negative) 03/04/18 00:17 Urine WBC Clumps 2+ /HPF 03/04/18 00:17 Urine Mucus Few /HPF 03/04/18 00:17 Random Vancomycin 18.8 ug/mL (0-40.0) 03/15/18 06:55 Hepatitis A IgM Ab Non-reactive (NonReactive) 03/04/18 15:35 Hep Bs Antigen Non-reactive (Negative) 03/04/18 15:35 Hep B Core IgM Ab Non-reactive (NonReactive) 03/04/18 15:35 Hepatitis C Antibody Non-reactive (NonReactive) 03/04/18 15:35 Blood Type B POSITIVE 03/13/18 17:41 Antibody Screen Negative 03/13/18 17:41 Crossmatch See Detail 03/13/18 17:41
[2018-03-17] MEDS: NACL 0.9% 1000 ML 1,000 ML IV SCH (13:20)
--- NOTE | 2018-03-17 14:24 | Progress Note ---
Assessment and Plan Severe sepsis: Sacral Decubitus Ulcer: -On vancomycin and zosyn -Surgery on board, s/p surgical debridement of sacral wound on 03/13/18 ESRD on HD: -HD today for UF and clearance -HD treatment almost completed (less than 30 minutes remaining at time of my examination), will repeat potassium level at 1700 today post HD, replete if needed -Assess need for HD on daily basis -Renally dose meds -Strict intake and output -Renal plan d/w Dr Bledsoe -Continue supportive therapy Anemia in CKD: -Epogen with HD -Monitor for need for blood transfusion Swelling in Right upper extremity: -Venous doppler negative for DVT. Subjective Date of service: 03/17/18 Principal diagnosis: ESRD, hematemesis Interval history: Pt awake, difficult to understand speech, HD nurse at bedside, only 30 minutes left on HD treatment. Objective - Vital Signs Vital signs: Vital Signs - 12hr 03/17/18 03/17/18 03/17/18 10:00 10:30 10:45 Pulse Rate 60 68 Pulse Rate [ 78 Right Radial] Respiratory 18 20 Rate Blood Pressure 116/40 125/50 O2 Sat by Pulse 99 Oximetry 03/17/18 03/17/18 03/17/18 11:00 11:15 11:30 Pulse Rate 82 72 63 Pulse Rate [ Right Radial] Respiratory Rate Blood Pressure 151/84 185/102 172/93 O2 Sat by Pulse Oximetry 03/17/18 03/17/18 03/17/18 11:45 12:00 12:15 Pulse Rate 63 78 76 Pulse Rate [ Right Radial] Respiratory Rate Blood Pressure 136/72 163/81 152/40 O2 Sat by Pulse Oximetry - General Appearance General appearance: well-developed (no acute distress) EENT: ATNC Neck: no JVD Respiratory: Present: Other (Lung sounds decreased bilaterally, unlabored) Cardiology: regular, S1S2, other (ACCESS: Left AVF in use) Gastrointestinal: normoactive bowel sounds Integumentary: warm and dry (pt does have sacral wound - receiving wound care management) Neurologic: other (awake, follows simple commands, speech is difficult to understand) Musculoskeletal: other (no edema to both lower extremities) - Lab 03/17/18 06:55 03/17/18 06:55 Most recent lab results Calcium 6.6 mg/dL (8.4-10.2) L 03/17/18 06:55 Magnesium 1.90 mg/dL (1.7-2.3) 03/13/18 Unknown
[2018-03-17] MEDS ORDERED: NACL 0.9 (PRIMING MACHINE ONLY DIALYSIS) MC ONE (14:56)
[2018-03-17] MEDS: VANCOMYCIN/NS 1 GM/250 ML 1 GM/250 ML BAG IV SCH (17:28)
[2018-03-17] MEDS ORDERED: POTASSIUM CHLORIDE PO ONE (18:30)
[2018-03-17] MEDS ORDERED: K-DUR PO ONE (18:30)
[2018-03-17] MEDS: MORPHINE IV PRN (19:58)
[2018-03-17] MEDS: K-DUR PO SCH (22:13)
[2018-03-17] MEDS: COGENTIN PO SCH (23:11)
[2018-03-18] MEDS: MORPHINE IV PRN ×3 (04:22→18:12)
[2018-03-18] MEDS: K-DUR PO SCH (04:23)
[2018-03-18 08:45] LABS: Basophils # (Auto) 0.1 K/mm3 (0.0-0.1); Basophils % (Auto) 0.8 % (0.0-1.8); Eosinophils # (Auto) 0.2 K/mm3 (0.0-0.4); Eosinophils % (Auto) 3.9 % (0.0-4.3); Hematocrit 25.4 % (30.3-42.9); Hemoglobin 8.2 gm/dl (10.1-14.3); Lymphocytes # (Auto) 1.3 K/mm3 (1.2-5.4); Lymphocytes % (Auto) 20.7 % (13.4-35.0); Mean Corpuscular HGB Conc 33 % (30-34); Mean Corpuscular Hemoglobin 29 pg (28-32); Mean Corpuscular Volume 89 fl (79-97); Monocytes # (Auto) 0.7 K/mm3 (0.0-0.8); Monocytes % (Auto) 11.7 % (0.0-7.3); Platelet Count 404 K/mm3 (140-440); Red Blood Count 2.85 M/mm3 (3.65-5.03)
[2018-03-18 08:49] LABS: Red Cell Distribution Width 20.8 % (13.2-15.2)
[2018-03-18 08:53] LABS: Calcium 7.3 mg/dL (8.4-10.2)
--- NOTE | 2018-03-18 09:08 | Progress Note ---
Assessment and Plan Severe sepsis: Sacral Decubitus Ulcer: -On vancomycin and zosyn -Surgery on board, s/p surgical debridement of sacral wound on 03/13/18 ESRD on HD: -no indication for HD today -Assess need for HD on daily basis -Renally dose meds -Strict intake and output -Continue supportive therapy Anemia in CKD: -Epogen with HD -Monitor for need for blood transfusion Swelling in Right upper extremity: -Venous doppler negative for DVT. Subjective Date of service: 03/18/18 Principal diagnosis: ESRD, hematemesis Interval history: answers simple questions, no family at bedside Objective - Vital Signs Vital signs: Vital Signs - 12hr 03/18/18 03/18/18 02:47 07:34 Temperature 97.5 F L 98.0 F Pulse Rate 76 Respiratory 20 18 Rate Blood Pressure 161/76 167/77 O2 Sat by Pulse 95 Oximetry - General Appearance General appearance: appears stated age EENT: ATNC, PERRL, mucous membranes dry Neck: no JVD Respiratory: Present: Clear to Ascultation Cardiology: regular, S1S2 Gastrointestinal: normoactive bowel sounds, no tenderness, no distended Integumentary: no rash, warm and dry Neurologic: no focal deficit Musculoskeletal: other (no edema in BLE) Psychiatric: cooperative - Lab 03/18/18 08:05 03/18/18 08:05 Most recent lab results Calcium 7.3 mg/dL (8.4-10.2) L 03/18/18 08:05 Magnesium 1.90 mg/dL (1.7-2.3) 03/13/18 Unknown
--- NOTE | 2018-03-18 09:25 | Discharge Summary ---
Providers - Providers Date of Admission: 03/03/18 16:16 Date of discharge: 03/18/18 Attending physician: JENELLE VILLALPANDO 03/03/18 12:58 Consult to Physician [CONS] Urgent Comment: spoke with dr. vanegas/ nilda Consulting Provider: JEAN TRAVIS Physician Instructions: Reason For Exam: esrd 03/03/18 14:40 Consult to Physician [CONS] Urgent Comment: spoke w/ dr. oliveros Consulting Provider: ANKUSH RONDON Physician Instructions: Reason For Exam: infected sacral ulcer 03/03/18 16:27 Consult to Physician [CONS] Routine Comment: spoke w/ dr. mitchell /nilda Consulting Provider: BRIANA PADILLA Physician Instructions: Reason For Exam: Sacral decub ulcer Consult to Wound/ET Nurse [CONS] Routine Reason For Exam: wound eval 03/03/18 16:37 Consult to Dietitian/Nutrition [CONS] Routine Physician Instructions: Assess nutrtn needs, initiate, modify, manage TF Reason For Exam: Reason for Consult: Write/Manage Tube Feeding Reason for Consult: Write/Manage Tube Feeding 03/03/18 16:39 Consult to Dietitian/Nutrition [CONS] Routine Physician Instructions: Reason For Exam: Reason for Consult: Pt needs oral supplement 03/04/18 08:14 Speech Therapy Evaluation and Treat [CONS] Routine Reason For Exam: aspiration 03/04/18 10:39 Consult to Physician [CONS] Routine Comment: Consulting Provider: SANG NIEVES Physician Instructions: consult was done Reason For Exam: pre op anesthesia eval Consult to Wound/ET Nurse [CONS] Routine Reason For Exam: wound eval & local wd care 03/05/18 18:05 Midline [Consult to PICC Line RN] [CONS] Urgent Reason For Exam: Loss of access Type Line:: Midline 03/10/18 11:28 Consult to Case Management [CONS] Stat Services Needed at Discharge: Other Notified:: patent litigation associate Additional Physician Instructions: [facility] ([facility] M [phone] O [phone] F [phone] OUTPATIENT PARENTERAL ANTIBIOTIC THERAPY ORDERS Diagnoses: sacral decubitus ulcer infection and osteomyelitis Antimicrobial administration: ciprofloxacin 500 mg PO qday and vancomycin 1 g IV on HD 3 times a week total 6 weeks until 04/16/18. Lines: HD access Lab monitoring: CBC, BMP, CRP and vancomycin trough once a week preferly on Saturday morning. Please fax results to [phone] and call [phone] for critical lab results. Briana Mitchell Date: 03/10/18 03/11/18 11:23 PICC Line Insertion [Consult to PICC Line RN] [CONS] Urgent Reason For Exam: piccline placement Type Line:: PICC 03/11/18 12:41 Consult to Physician [CONS] Routine Comment: spoke on the phone/nilda Consulting Provider: RANDALL MCCLENDON Physician Instructions: Reason For Exam: preop eval for surg thurs am general anesthesia 03/12/18 10:56 Consult to Physician [CONS] Routine Comment: called office/spoke to lucina/ nilda Consulting Provider: CHRISTIAN LISA Physician Instructions: Reason For Exam: skilled nursing Abx/IV access/IV team unable to 03/13/18 12:58 Consult to Physician [CONS] Routine Comment: Consulting Provider: ROBINA YANEZ Physician Instructions: Reason For Exam: coffee ground emesis/Black tarry stool[per nurse] 03/13/18 14:47 Consult to Physician [CONS] Routine Comment: Consulting Provider: ROBINA YANEZ Physician Instructions: Reason For Exam: GI bleed? 03/14/18 08:41 Physical Therapy Evaluation and Treat [CONS] Stat Comment: Reason For Exam: Weakness 03/14/18 10:49 Occupational Therapy Evaluate and Treat [CONS] Urgent Comment: Reason For Exam: General Weakness 03/16/18 18:17 Speech Therapy Evaluation and Treat [CONS] Urgent Reason For Exam: Speech changes since January of 2018 Primary care physician: [employer] Hospitalization Reason for admission: sepsis,. sacral ulcer Condition: Fair Hospital course: 72-year-old female PMH ESRD on HD via LUE AV fistula, CHF, GERD, depression, hypothyroidism, herpes zoster, dementia, G tube for feedings, who was brought to [facility] ER on 03/03 for evaluation of weakness, fever, low BP and worsening sacral decubitus ulcer. History is obtained from records due to patient's history of dementia and from patient's daughter. Pt's daughter reported that pt developed the sacral decubitus ulcer about 4-5 weeks ago after admission to outside hospital from which she was transferred to SNF. She was noted to have fever and low BP at the SNF and was sent to the ER. In the ER temperature was 99.3, pulse 80, respiratory rate 16, saturation 100%, blood pressure 88/39. She was given IV fluids with improvement of the BP, no pressors were required. On exam she was noted to have a large sacral decubitus ulcer with foul smelling drainage. Labs showed white blood cell count of 14.8, H&H 8.3 and 26.0, platelets 354. BUN and creatinine 53 and 4.7. Lactic acid 1.6. Urinalysis showed negative nitrate, positive leukocyte esterase, RBC 22, WBC 117. Blood cultures were collected and grew coag-negative staph which was felt to be a contaminant. Repeat blood cultures were done on 03/05 that were negative. Surgery was consulted and patient underwent surgical debridement on 03/05 and 03/13. As per operative report debridement down to bone and purulence noted. Wound cx with Polymicrobial growth (E. faecalis, K. oxytoca, K. pneumoniae, C. freundii). Also, Patient was seen by nephrology in consultation for ESRD on hemodialysis. Other consultations during the hospital stay included swelling of the right upper extremity in which venous Dopplers were ordered and found to be negative. Patient also had toxic metabolic encephalopathy related to the sepsis on admission. As the sepsis improved, encephalopathy resolved. ID recommended ciprofloxacin 500 mg by mouth daily and 1 g IV vancomycin on hemodialysis days 3 times a week until 04/16/18. Patient is to follow-up in ID clinic on 04/03/18. Case management was consulted for placement. Dedicated discharge time 32 minutes. Disposition: DC/[place]-[address] [facility] Time spent for discharge: 32 - Discharge Diagnoses (1) Dehydration Status: Acute (2) ESRD (end stage renal disease) Status: Acute (3) Encephalopathy acute Status: Acute (4) Sepsis Status: Acute Qualifiers: Sepsis type: sepsis due to unspecified organism Qualified Code(s): A41.9 - Sepsis, unspecified organism (5) ESRD needing dialysis Status: Chronic (6) Hypertension Status: Chronic Qualifiers: Hypertension type: essential hypertension Qualified Code(s): I10 - Essential (primary) hypertension (7) Sacral decubitus ulcer, stage IV Status: Chronic Core Measure Documentation - Palliative Care Palliative Care/ Comfort Measures: Not Applicable - Core Measures Any of the following diagnoses?: none Exam - Constitutional Vitals: Temp Pulse Resp BP Pulse Ox 98.0 F 76 18 167/77 95 03/18/18 07:34 03/18/18 07:34 03/18/18 07:34 03/18/18 07:34 03/18/18 07:34 General appearance: Present: no acute distress, well-nourished - EENT Eyes: Present: PERRL ENT: hearing intact, clear oral mucosa - Neck Neck: Present: supple, normal ROM - Respiratory Respiratory effort: normal Respiratory: bilateral: CTA - Cardiovascular Heart Sounds: Present: S1 & S2. Absent: rub, click - Extremities Extremities: pulses symmetrical, No edema Peripheral Pulses: within normal limits - Abdominal General gastrointestinal: Present: soft, non-tender, non-distended, normal bowel sounds Female genitourinary: Present: normal - Integumentary Integumentary: Present: clear, warm, dry, rash (sacral ulcer) - Musculoskeletal Musculoskeletal: gait normal, strength equal bilaterally - Psychiatric Psychiatric: appropriate mood/affect, intact judgment & insight - Neurologic Neurologic: CNII-XII intact, moves all extremities Plan Activity: advance as tolerated Weight Bearing Status: Weight Bear as Tolerated Diet: renal Follow up with: PRIMARY MD RACH [Primary Care Provider] - 3-5 Days ESVIN VANEGAS MD [Staff Physician] - 7 Days ANKUSH RONDON MD [Staff Physician] - 7 Days
[2018-03-18] MEDS: DAKIN'S HALF STRENGTH TP SCH (09:48)
[2018-03-18 09:49] LABS: Calcium 7.4 mg/dL (8.4-10.2)
[2018-03-18] MEDS: HALDOL PO SCH (09:49)
[2018-03-18] MEDS: PROTONIX PO SCH (09:50)
[2018-03-18] MEDS: SODIUM CHLORIDE FLUSH SYRINGE 10 ML IV SCH (09:50)
[2018-03-18] MEDS: ZOSYN/NS 2.25 GM/50ML 2.25 GM/50 ML BAG IV SCH ×2 (09:51→15:32)
--- NOTE | 2018-03-18 14:44 | Progress Note ---
Assessment and Plan Pt status quo. Wd clean and dry. wd vac placed h/h stable at present consider upper and lower endoscopy stable from surg wd care perspective will follow prn Selected Entries 03/18/18 03/18/18 07:34 10:00 Temperature 98.0 F Pulse Rate 76 Pulse Rate [ 76 Right Radial] Blood Pressure 167/77 Laboratory Tests 03/17/18 03/18/18 06:55 08:05 Hgb 7.5 L 8.2 L Hct 22.8 L 25.4 L Objective Vital Signs - 12hr 03/18/18 03/18/18 03/18/18 02:47 07:34 10:00 Temperature 97.5 F L 98.0 F Pulse Rate 76 Pulse Rate [ 76 Right Radial] Respiratory 20 18 16 Rate Blood Pressure 161/76 167/77 O2 Sat by Pulse 95 95 Oximetry - Labs 03/18/18 08:05 03/18/18 08:51 Diabetes panel 03/17/18 03/18/18 03/18/18 Range/Units 17:13 08:05 08:51 Sodium 134 L D 138 (137-145) mmol/L Potassium 2.9 L* 3.3 L 3.5 L (3.6-5.0) mmol/L Chloride 98.7 100.0 (98-107) mmol/L Carbon Dioxide 23 22 (22-30) mmol/L BUN 18 H 18 H (7-17) mg/dL Creatinine 2.4 H 2.3 H (0.7-1.2) mg/dL Glucose 69 81 (65-100) mg/dL Calcium 7.3 L 7.4 L (8.4-10.2) mg/dL Calcium panel 03/18/18 03/18/18 Range/Units 08:05 08:51 Calcium 7.3 L 7.4 L (8.4-10.2) mg/dL Pituitary panel 03/17/18 03/18/18 03/18/18 Range/Units 17:13 08:05 08:51 Sodium 134 L D 138 (137-145) mmol/L Potassium 2.9 L* 3.3 L 3.5 L (3.6-5.0) mmol/L Chloride 98.7 100.0 (98-107) mmol/L Carbon Dioxide 23 22 (22-30) mmol/L BUN 18 H 18 H (7-17) mg/dL Creatinine 2.4 H 2.3 H (0.7-1.2) mg/dL Glucose 69 81 (65-100) mg/dL Calcium 7.3 L 7.4 L (8.4-10.2) mg/dL Adrenal panel 03/17/18 03/18/18 03/18/18 Range/Units 17:13 08:05 08:51 Sodium 134 L D 138 (137-145) mmol/L Potassium 2.9 L* 3.3 L 3.5 L (3.6-5.0) mmol/L Chloride 98.7 100.0 (98-107) mmol/L Carbon Dioxide 23 22 (22-30) mmol/L BUN 18 H 18 H (7-17) mg/dL Creatinine 2.4 H 2.3 H (0.7-1.2) mg/dL Glucose 69 81 (65-100) mg/dL Calcium 7.3 L 7.4 L (8.4-10.2) mg/dL
[2018-03-18 21:29] VITALS: BP 178/88
== END 2018-03-18 22:15 | DRG 853 ==
LOC: ED 11:03 → 2B-ACE 16:16
PROVIDERS: ADMIT Internal Medicine; ATTEND Hospitalist
PROC: 5A1D70Z Performance of Urinary Filtration, Intermittent, Less than 6 Hours Per Day (ICD-10-PCS; 2018-03-04)
PROC: 0QB10ZZ Excision of Sacrum, Open Approach (ICD-10-PCS; principal; 2018-03-05)
PROC: 30233N1 Transfusion of Nonautologous Red Blood Cells into Peripheral Vein, Percutaneous Approach (ICD-10-PCS; 2018-03-06)
PROC: 5A1D70Z Performance of Urinary Filtration, Intermittent, Less than 6 Hours Per Day (ICD-10-PCS; 2018-03-06)
PROC: 5A1D70Z Performance of Urinary Filtration, Intermittent, Less than 6 Hours Per Day (ICD-10-PCS; 2018-03-10)
PROC: 5A1D70Z Performance of Urinary Filtration, Intermittent, Less than 6 Hours Per Day (ICD-10-PCS; 2018-03-12)
PROC: 0QB10ZZ Excision of Sacrum, Open Approach (ICD-10-PCS; 2018-03-13)
PROC: B5131ZA Fluoroscopy of Right Jugular Veins using Low Osmolar Contrast, Guidance (ICD-10-PCS; 2018-03-13)
PROC: 0JH63XZ Insertion of Tunneled Vascular Access Device into Chest Subcutaneous Tissue and Fascia, Percutaneous Approach (ICD-10-PCS; 2018-03-13)
PROC: 02H633Z Insertion of Infusion Device into Right Atrium, Percutaneous Approach (ICD-10-PCS; 2018-03-13)
PROC: B2141ZZ Fluoroscopy of Right Heart using Low Osmolar Contrast (ICD-10-PCS; 2018-03-13)
PROC: 5A1D70Z Performance of Urinary Filtration, Intermittent, Less than 6 Hours Per Day (ICD-10-PCS; 2018-03-14)
PROC: 5A1D70Z Performance of Urinary Filtration, Intermittent, Less than 6 Hours Per Day (ICD-10-PCS; 2018-03-17)
DX: A41.9 Sepsis, unspecified organism (principal); N18.6 End stage renal disease; L89.154 Pressure ulcer of sacral region, stage 4; E43 Unspecified severe protein-calorie malnutrition; G93.41 Metabolic encephalopathy; E87.1 Hypo-osmolality and hyponatremia; I96 Gangrene, not elsewhere classified; I13.2 Hypertensive heart and chronic kidney disease with heart failure and with stage 5 chronic kidney disease, or end stage renal disease; I50.30 Unspecified diastolic (congestive) heart failure; K92.1 Melena; K92.0 Hematemesis; F03.90 Unspecified dementia, unspecified severity, without behavioral disturbance, psychotic disturbance, mood disturbance, and anxiety; E03.9 Hypothyroidism, unspecified; K21.9 Gastro-esophageal reflux disease without esophagitis; F32.9 Major depressive disorder, single episode, unspecified; E86.0 Dehydration; F20.9 Schizophrenia, unspecified; R65.20 Severe sepsis without septic shock; D63.1 Anemia in chronic kidney disease; R13.10 Dysphagia, unspecified; M79.89 Other specified soft tissue disorders; Z68.22 Body mass index [BMI] 22.0-22.9, adult; Z79.899 Other long term (current) drug therapy; Z72.89 Other problems related to lifestyle
CPT/HCPCS: 36415; 36558; 70450; 71045; 74176; 76937; 77001; 80048; 80053; 80074; 80202; 81001; 82140; 82550; 82962; 83036; 83735; 84132; 85007; 85014; 85018; 85025; 85610; 85652; 85730; 86140; 86850; 86900; 86901; 86920; 87040; 87075; 87076; 87116; 87186; 88305; 93005; 93010; 96365; 96366; A6260; C1751; C9113; G8978-GP; G8979-GP; G8987-GO; G8988-GO; G8989-GO; G8996-GN; G8997-GN; G8998-GN; J0360; J0885; J1200; J1630; J1644; J2250; J2270; J2370; J2405; J2543; J2704; J2710; J3010; J3370; J3475; J7030; J7040; J7050; P9016; Q0163